=== PATIENT | male | born 1990 | race Caucasian/White ===

== ENCOUNTER → 2017-09-14 12:46 | Outpatient (CLI) | payer OTHER, MEDICAID, SELFPAY ==
[2017-09-14 13:31] LABS: Appearance Urine UA CLEAR; Bilirubin Urine UA NEGATIVE (NEGATIVE); Color Urine UA YELLOW; Glucose Urine UA NEGATIVE (Normal); Ketones Urine UA NEGATIVE (NEGATIVE); Leukocyte Esterase Urine UA NEGATIVE (NEGATIVE); Nitrite Urine UA NEGATIVE (NEGATIVE); Occult Blood Urine UA NEGATIVE (Negative); Protein Urine UA NEGATIVE (Negative); Specific Gravity Urine UA 1.025 (1.000-1.035); Urobilinogen Urine UA 0.2 E.U./dL (0.2)
[2017-09-14 13:35] LABS: Add Manual Diff / Slide Review NO; Basophils Percent Auto 0.4 % (0-2); Hemoglobin 16.3 g/dL (13.5-17.5); Lymphocytes Percent Auto 26.6 % (25-40); Mean Corpuscular HGB Conc 34.6 % (30-36); Mean Corpuscular Hemoglobin 30.8 PG (26-34); Mean Corpuscular Volume 88.9 fL (80-100); Monocytes Percent Auto 5.3 % (3-14); Neutrophils Absolute Auto 5500 /uL (3000-5900); Neutrophils Percent Auto 62.7 % (50-75); Platelet Count 245 X10^3/uL (150-400); Red Blood Cell Count 5.29 X10^6/uL (4.5-5.9); Red Cell Distribution Width 12.7 % (11.6-14.8); White Blood Cell Count 8.8 X10^3/uL (4.5-11.0)
[2017-09-14 13:37] LABS: Hemoglobin A1C% w Est Avg Glu 5.2 % (4.0-6.0)
[2017-09-14 13:43] LABS: Culture Indicated Urine Cult Not Indicated; Urine Comments Microscopic Normal
[2017-09-14 13:47] LABS: Alanine Aminotransferase 86 IU/L (21-72); Albumin 4.5 g/dL (3.5-5.0); Albumin Globulin Ratio 1.3 (1.0-2.8); Alkaline Phosphatase 59 U/L (38-126); Aspartate Aminotransferase 50 IU/L (17-59); BUN Creatinine Ratio 14.3 (6-22); Bilirubin Total 0.9 mg/dL (0.2-1.3); Calcium 9.4 mg/dL (8.4-10.2); Cholesterol 221 mg/dL (140-199); Estimated Glomerular Filt Rate > 60.0 mL/min (>60); Globulin 3.4 g/dL (1.7-4.1); Glucose 86 mg/dL (70-100); HDL Cholesterol 47 mg/dL (40-60); LDL Cholesterol Calculated 117 mg/dL (<100); Potassium 4.6 mmol/L (3.4-5.1); Sodium 140 mmol/L (137-145); Total Protein 7.9 g/dL (6.3-8.2); Triglycerides 285 mg/dL (35-150)
[2017-09-14 13:48] LABS: HEMOLYSIS 60 (0-50)
== END ==
PROVIDERS: PCP Family Medicine; Visit Provider Nurse Practitioner Family
DX: R03.0 Elevated blood-pressure reading, without diagnosis of hypertension (principal); E66.01 Morbid (severe) obesity due to excess calories
CPT/HCPCS: 36415; 80053; 80061; 81001; 83036; 85025

== ENCOUNTER → 2017-09-18 16:12 | Outpatient (CLI) | payer OTHER, MEDICAID, SELFPAY ==
[2017-09-18 18:04] LABS: Appearance Urine UA CLEAR; Bilirubin Urine UA NEGATIVE (NEGATIVE); Color Urine UA YELLOW; Glucose Urine UA NEGATIVE (Negative); Ketones Urine UA NEGATIVE (NEGATIVE); Leukocyte Esterase Urine UA NEGATIVE (NEGATIVE); Nitrite Urine UA NEGATIVE (NEGATIVE); Occult Blood Urine UA NEGATIVE (Negative); Protein Urine UA NEGATIVE (Negative); Urobilinogen Urine UA 0.2 E.U./dL (0.2)
[2017-09-18 18:08] LABS: RBC Urine 0-1/HPF (0-5/HPF); WBC Urine 0-1/HPF (0-5/HPF)
[2017-09-18 18:09] LABS: Culture Indicated Urine Cult Not Indicated; Urine Comments Microscopic Normal
[2017-09-18 19:11] LABS: Creatinine Urine Random 135.7 mg/dL
[2017-09-18 19:19] LABS: Microalbumi Creatinin Ratio Ur 4.4 ug/mg CR (<30); Microalbumin Urine Random < 0.6 mg/dL (0-1.6)
== END ==
PROVIDERS: PCP Registered Nurse; Visit Provider Registered Nurse
DX: R03.0 Elevated blood-pressure reading, without diagnosis of hypertension (principal)
CPT/HCPCS: 81001; 82043; 82570

== ENCOUNTER → 2017-09-20 13:57 | Outpatient (CLI) | payer OTHER, MEDICAID, SELFPAY ==
--- NOTE | 2017-09-21 16:32 | PM.PFT.1 ---
Pulmonary Function Test Referral & Results Date Patient Seen: 09/20/17 Requesting provider: Margi Peacock Results: The spirometry demonstrates an FVC of 4.83 L which is 84% of predicted. The FEV1 was measured at 3.08 L which is 65% of predicted. The FEV1/FVC ratio was 60 for which is 76% of predicted. Following the administration of bronchodilator there was 10% improvement in FEV1 and a 64% improvement in FEF 25-75%. Lung volumes show an SVC of 4.85 L which is 88% of predicted. The diffusing capacity was measured at 49.01 which is 145% of predicted. The maximum voluntary ventilation was normal. Interpretation: This study demonstrates mild obstructive lung disease with some limited evidence of benefit following bronchodilator administration, particularly in small airway flows based on improvement in FEF 25-75%.
== END ==
PROVIDERS: PCP Registered Nurse; Visit Provider Registered Nurse
DX: J45.909 Unspecified asthma, uncomplicated (principal)
CPT/HCPCS: 94010; 94060; 94726; 94729

== ENCOUNTER 2017-11-04 19:50 | Emergency (ER) | payer OTHER, MEDICAID, SELFPAY ==
[2017-11-04 20:00] VITALS: BP 156/107; PULSE 98; RESP 16; TEMP 37; O2SAT 96; BMI 38.0
--- NOTE | 2017-11-04 20:15 | DI.RAD.S_ITS ---
PROCEDURE: XR ACUTE ABDOMEN SERIES INDICATIONS: Abdominal pain, cramping TECHNIQUE: One view chest and two views of the abdomen were acquired. COMPARISON: [facility], , CHEST 1 VIEW, 06/12/2017, 11:48. FINDINGS: Surgical changes and devices: None. Chest: Lungs are clear. Heart size is normal. No pleural effusions. No pneumoperitoneum. Abdomen: Bowel gas pattern demonstrates scattered air-fluid levels within the small and large bowel. There is a paucity of bowel gas. No suspicious calcifications. Bones: No suspicious bony lesions. IMPRESSION: 1. Nonspecific bowel gas pattern with scattered air-fluid levels. The findings may reflect an ileus, gastroenteritis, or obstruction. Dictated by: Daquan Handley M.D. on 11/04/2017 at 20:58 Approved by: Daquan Handley M.D. on 11/04/2017 at 20:59
--- NOTE | 2017-11-04 20:17 | ED.ABDPAIN ---
HPI - Abdominal Pain General Chief Complaint: Abdominal Pain Stated Complaint: STOMACH PAIN NAUSEA Time Seen by Provider: 11/04/17 20:07 Source: patient Mode of arrival: ambulatory Limitations: no limitations History of Present Illness HPI narrative: 27-year-old male obviously uncomfortable, clutching his abdomen complaining of episodic, crampy abdominal pain after taking Mag citrate for constipation. He did pass a small amount of stool since. He denies provocation, palliation or radiation of his pain. He is not currently having pain. MD complaint: abdominal pain Onset (ago): hour(s) Pain Consistency: intermittent and now resolved Location: diffuse Severity: moderate Quality: cramping Radiation: none Migration to: no migration Relieving factors: nothing Exacerbating factors: nothing Related Data Previous Rx's Medication Instructions Recorded pantoprazole 20 mg PO BIDAC #30 tab 06/12/17 amoxicillin-pot clavulanate 875 mg PO BID #20 tab 08/08/17 [Augmentin] meclizine 12.5 mg PO Q4HP PRN #30 tab 08/14/17 Review of Systems Review of Systems All systems reviewed & are unremarkable except as noted in HPI and below Constitutional Denies chills, Denies fever(s), Denies lethargy and Denies weakness Eyes Denies change in vision, Denies eye discharge, Denies irritation and Denies loss of vision ENT Ears, Nose, Mouth, and Throat: Denies change in voice, Denies neck pain and Denies sore throat Cardiovascular Denies chest pain, Denies irregular heart rhythm, Denies lightheadedness, Denies palpitations, Denies dyspnea, Denies dyspnea on exertion and Denies orthopnea Respiratory Denies cough, Denies dyspnea, Denies dyspnea on exertion and Denies wheezing Gastrointestinal Gastrointestinal: Reports abdominal pain, Reports change in bowel habits, Denies diarrhea, Denies nausea and Denies vomiting Genitourinary Denies hematuria, Denies flank pain, Denies urinary incontinence and Denies urinary urgency Musculoskeletal Denies neck pain Integumentary/Breasts Denies pruritus, Denies erythema, Denies rash and Denies wounds Neurologic Denies confusion, Denies loss of vision and Denies weakness Psychiatric Denies anxiety, Denies confusion, Denies depression, Denies homicidal ideation and Denies suicidal ideation Endocrine Denies palpitations Hematologic/Lymphatic Denies easy bruising Allergic/Immunologic Denies wheezing Exam Narrative Exam Narrative: Pleasant 27-year-old male, clutching his abdomen Initial Vital Signs Initial Vital Signs: Vital Signs Temperature 98.6 F 11/04/17 20:00 Pulse Rate 98 H 11/04/17 20:00 Respiratory Rate 16 11/04/17 20:00 Blood Pressure 156/107 H 11/04/17 20:00 Pulse Oximetry 96 11/04/17 20:00 Const General: cooperative, well developed and in distress Nutritional Appearance: well nourished Orientation: alert, awake, oriented x3 and not confused Resp Effort & Inspection: normal respiratory effort, able to speak in complete sentences, no respiratory distress and no use of accessory muscles Auscultation: clear to auscultation bilaterally, no rales, no rhonchi and no wheezes Cardio Rate: regular rate Rhythm: regular rhythm Heart Sounds: no click, no gallops, no murmurs and no rubs Pulses: normal peripheral pulses GI Inspection: normal to inspection Palpation: soft, No guarding, No tender and No ascites Percussion: normal to percussion Skin General: no rashes or lesions noted, No jaundice and No petechiae Extrem General: full ROM, no clubbing, cyanosis or edema, no pedal edema and no calf tenderness Psych Appearance: well kempt Mental Status: mental status grossly normal Attitude: cooperative Thought Content: normal and suicidality Judgment: judgment good Course Orders Ordered: ED Orders 11/04/17 20:15 XR acute abdomen series Stat Vital Signs - 8 hr 11/04/17 20:00 11/04/17 21:37 11/04/17 21:48 Temperature 98.6 F Pulse Rate 98 H 59 L 81 Respiratory Rate 16 18 16 Blood Pressure 156/107 H 154/94 H Blood Pressure [Left Arm] 113/70 Pulse Oximetry 96 96 100 MDM - Abdominal Pain Imaging Data Abdominal x-ray: Attestation: I personally reviewed and interpreted this imaging study as follows: My impression: non specific bowel gas pattern Radiologist's impression: PROCEDURE: XR ACUTE ABDOMEN SERIES INDICATIONS: Abdominal pain, cramping TECHNIQUE: One view chest and two views of the abdomen were acquired. COMPARISON: [facility], , CHEST 1 VIEW, 06/12/2017, 11:48. FINDINGS: Surgical changes and devices: None. Chest: Lungs are clear. Heart size is normal. No pleural effusions. No pneumoperitoneum. Abdomen: Bowel gas pattern demonstrates scattered air-fluid levels within the small and large bowel. There is a paucity of bowel gas. No suspicious calcifications. Bones: No suspicious bony lesions. IMPRESSION: 1. Nonspecific bowel gas pattern with scattered air-fluid levels. The findings may reflect an ileus, gastroenteritis, or obstruction. Dictated by: Daquan Handley M.D. on 11/04/2017 at 20:58 Approved by: Daquan Handley M.D. on 11/04/2017 at 20:59 Discharge Plan Departure Patient Disposition: Home, Self-Care Clinical Impression: Abdominal pain Discharge Date/Time: 11/04/17 21:49 Interventions: ED Discharge Assessment Last Done: 11/04/17 21:48 Instructions: DI for Abdominal Pain-Adult Activity Restrictions/Additional Instructions: 1. Stay active 2. Return to your normal diet as much as possible 3. Stay well hydrated 4. A combination of over the counter laxitives including Dulcolax (stimulant laxative) Colace (stool softener) *Follow up with your primary care provider in 2-3 days *Return to ER if you should have any new, worsening or concerning symptoms such as worsening pain, vomiting, fever greater than 101 F or other Prescriptions: No Action pantoprazole 20 MG tablet,delayed release (DR/EC) 20 mg PO BIDAC Qty: 30 RF: 0 amoxicillin-pot clavulanate [Augmentin] 875 MG/125 MG tablet 875 mg PO BID Qty: 20 RF: 0 meclizine 12.5 MG tablet 12.5 mg PO Q4HP PRNQty: 30 RF: 0
[2017-11-04 21:37] VITALS: BP 113/70; PULSE 59; RESP 18; O2SAT 96
[2017-11-04 21:48] VITALS: BP 154/94; PULSE 81; RESP 16; O2SAT 100
== END 2017-11-04 21:49 | disposition home or self-care (01) ==
PROVIDERS: Emergency Provider Emergency Medicine; PCP Registered Nurse
DX: R10.9 Unspecified abdominal pain (principal)
CPT/HCPCS: 74022; 99282; 99283

== ENCOUNTER 2018-01-02 11:01 | Emergency (ER) | payer OTHER, MEDICAID, SELFPAY ==
[2018-01-02 11:03] VITALS: BP 179/111; PULSE 74; RESP 17; TEMP 36.1; O2SAT 99
--- NOTE | 2018-01-02 11:18 | DI.RAD.S_ITS ---
PROCEDURE: XR CHEST 1V INDICATIONS: chest pain TECHNIQUE: One view of the chest was acquired. COMPARISON: [facility], , CHEST 1 VIEW, 06/12/2017, 11:48. FINDINGS: Surgical changes and devices: None. Lungs and pleura: No pleural effusions or pneumothorax. Lungs are clear. Mediastinum: Mediastinal contours appear normal. Heart size is normal. Bones and chest wall: No suspicious bony lesions. Overlying soft tissues appear unremarkable. IMPRESSION: No acute cardiopulmonary disease. Dictated by: Noni Ba M.D. on 01/02/2018 at 11:49 Approved by: Noni Ba M.D. on 01/02/2018 at 11:49
[2018-01-02 11:27] LABS: INR 0.9 (0.9-1.3); Prothrombin Time 10.2 SECONDS (10.1-12.7)
[2018-01-02 11:30] LABS: Add Manual Diff / Slide Review NO; Basophils Percent Auto 0.5 % (0-2); Eosinophils Percent Auto 1.7 % (2-4); Hematocrit 46.3 % (41-53); Hemoglobin 16.1 g/dL (13.5-17.5); Lymphocytes Percent Auto 16.5 % (25-40); Mean Corpuscular HGB Conc 34.7 % (30-36); Mean Corpuscular Hemoglobin 31.6 PG (26-34); Mean Corpuscular Volume 91.1 fL (80-100); Monocytes Percent Auto 4.8 % (3-14); Neutrophils Absolute Auto 7200 /uL (3000-5900); Neutrophils Percent Auto 76.5 % (50-75); PTT Partial Thromboplastin Tim 33 SECONDS (26.4-36.2); Platelet Count 285 X10^3/uL (150-400); Red Blood Cell Count 5.09 X10^6/uL (4.5-5.9); Red Cell Distribution Width 12.9 % (11.6-14.8); White Blood Cell Count 9.4 X10^3/uL (4.5-11.0)
[2018-01-02 11:32] LABS: Alanine Aminotransferase 62 IU/L (21-72); Albumin 4.8 g/dL (3.5-5.0); Albumin Globulin Ratio 1.4 (1.0-2.8); Alkaline Phosphatase 65 U/L (38-126); Aspartate Aminotransferase 32 IU/L (17-59); BUN Creatinine Ratio 17.5 (6-22); Bilirubin Total 0.5 mg/dL (0.2-1.3); Blood Urea Nitrogen 14 mg/dL (9-20); Carbon Dioxide 28 mmol/L (22-32); Chloride 104 mmol/L (98-107); Creatine Kinase 100 U/L (55-170); Estimated Glomerular Filt Rate > 60.0 mL/min (>60); Globulin 3.5 g/dL (1.7-4.1); Glucose 117 mg/dL (70-100); HEMOLYSIS < 15 (0-50); Lipase 68 U/L (23-300); Potassium 4.4 mmol/L (3.4-5.1); Sodium 145 mmol/L (137-145); Total Protein 8.3 g/dL (6.3-8.2)
[2018-01-02 11:48] LABS: Troponin I < 0.012 ng/mL (0.01-0.034)
[2018-01-02 12:06] VITALS: BP 169/121; PULSE 79; O2SAT 100
--- NOTE | 2018-01-02 12:24 | ED.ABDPAIN ---
HPI - Abdominal Pain <STACY Fajardo-BC - Last Filed: 01/02/18 21:38> General Stated Complaint: CHEST PAINS Time Seen by Provider: 01/02/18 11:19 Source: patient Mode of arrival: ambulatory Limitations: no limitations History of Present Illness HPI narrative: Patient presents with chief complaint of epigastric pain. It is lasted today. He had does have a history of GERD and states this feels like that. He does complain of some nausea. He denies substernal chest pain, no vomiting, diarrhea, shortness of breath. He states that his epigastric area hurts when he takes a deep breath. He has not taken anything at home to feel better. He denies fevers he denies urinary issues. He denies palpitations, denies swelling of the extremities. He is concerned about his lungs as he is a smoker. He denies palpitations, leg swelling, other concerns. He states this feels like his previous episodes of GERD. Related Data Home Medications Medication Instructions Recorded Confirmed albuterol sulfate [ProAir HFA] 1 puff INHALATION PRN PRN 01/02/18 01/02/18 montelukast 1 tab PO DAILY 01/02/18 01/02/18 Previous Rx's Medication Instructions Recorded pantoprazole 40 mg PO DAILY #30 tab 01/02/18 sucralfate [Carafate] 10 ml PO QID #420 ml 01/02/18 Allergies Allergy/AdvReac Type Severity Reaction Status Date / Time No Known Drug Allergies Allergy Verified 01/02/18 12:12 Review of Systems <MARCELO Fajardo - Last Filed: 01/02/18 21:38> Review of Systems GENERAL: Denies chills, fatigue, malaise, fever, sweats. HEENT: Denies sinus pain, ear pain, sore throat, difficulty swallowing, dizziness. RESPIRATORY: Denies dyspnea, cough, wheezing, hemoptysis, sputum. CARDIOVASCULAR: See HPI GASTROINTESTINAL: See HPI : Denies dysuria, frequency, incontinence, hematuria, urinary retention. MUSCULOSKELETAL: See HPI SKIN: Denies rash, skin lesions, or other NEUROLOGIC: Denies weakness, headache, numbness, change in speech, confusion, seizures, incoordination. PSYCHIATRIC: No concerning psychosocial issues. 12 point review of systems is negative except for those stated above Exam <STACY Fajardo-BC - Last Filed: 01/02/18 21:38> Narrative Exam Narrative: GENERAL: Obese patient in slight distress HEAD: Atraumatic. Normocephalic. No temporal or scalp tenderness. EYES: Pupils equal round and reactive. Extraocular motions intact. No scleral icterus. No injection or drainage. ENT: Nose without bleeding, purulent drainage or septal hematoma. Throat without erythema, tonsillar hypertrophy or exudate. Uvula midline. Airway patent. NECK: Trachea midline. No JVD or lymphadenopathy. Supple, nontender, no meningeal signs. CARDIOVASCULAR: Regular rate and rhythm without murmurs, gallops, or rubs. RESPIRATORY: Clear to auscultation. Breath sounds equal bilaterally. No wheezes, rales, or rhonchi. GASTROINTESTINAL: Obese abdomen. Bowel sounds all 4 quadrants. No palpable hepatosplenomegaly. Pain to palpation epigastric area. No pain to palpation lower right quadrant or lower left quadrant. No pain at McBurney's point. Negative Armas sign. No rigidity, no guarding. EXTREMITIES: No clubbing, cyanosis, or edema. No joint tenderness, effusion, or edema noted. BACK: Nontender without deformity or crepitance. No flank tenderness. NEURO: AOx3. SKIN: No rash or erythema. Initial Vital Signs Initial Vital Signs: Vital Signs Temperature 96.9 F L 01/02/18 11:03 Pulse Rate 74 01/02/18 11:03 Respiratory Rate 17 01/02/18 11:03 Blood Pressure 179/111 H 01/02/18 11:03 Pulse Oximetry 99 01/02/18 11:03 <Olga Mcdaniel DO - Last Filed: 01/03/18 09:54> Initial Vital Signs Initial Vital Signs: Vital Signs Temperature 96.9 F L 01/02/18 11:03 Pulse Rate 74 01/02/18 11:03 Respiratory Rate 17 01/02/18 11:03 Blood Pressure 179/111 H 01/02/18 11:03 Pulse Oximetry 99 01/02/18 11:03 Course <STACY Fajardo-BC - Last Filed: 01/02/18 21:38> Orders Ordered: Discontinued Medications Al Hydrox/Mg Hydrox/Simethicone 20 ml/ Lidocaine HCl 15 ml 0 ml PO NOW ONE Stop: 01/02/18 12:24 Last Admin: 01/02/18 12:59 Dose: 45 ml Ondansetron HCl (Zofran) 4 mg IV NOW ONE Stop: 01/02/18 12:15 Last Admin: 01/02/18 12:59 Dose: 4 mg Pantoprazole Sodium (Protonix) 40 mg IV NOW ONE Stop: 01/02/18 12:24 Last Admin: 01/02/18 12:59 Dose: 40 mg Sucralfate (Carafate) 1 gm PO NOW ONE Stop: 01/02/18 13:45 Last Admin: 01/02/18 14:42 Dose: 1 gm Vital Signs - 8 hr 01/02/18 14:06 01/02/18 14:49 01/02/18 15:09 Pulse Rate 66 89 85 Respiratory Rate 20 15 Blood Pressure 145/99 H Blood Pressure [Left Arm] 152/103 H Pulse Oximetry 98 98 97 <Olga Mcdaniel DO - Last Filed: 01/03/18 09:54> Orders Ordered: Discontinued Medications Al Hydrox/Mg Hydrox/Simethicone 20 ml/ Lidocaine HCl 15 ml 0 ml PO NOW ONE Stop: 01/02/18 12:24 Last Admin: 01/02/18 12:59 Dose: 45 ml Ondansetron HCl (Zofran) 4 mg IV NOW ONE Stop: 01/02/18 12:15 Last Admin: 01/02/18 12:59 Dose: 4 mg Pantoprazole Sodium (Protonix) 40 mg IV NOW ONE Stop: 01/02/18 12:24 Last Admin: 01/02/18 12:59 Dose: 40 mg Sucralfate (Carafate) 1 gm PO NOW ONE Stop: 01/02/18 13:45 Last Admin: 01/02/18 14:42 Dose: 1 gm Vital Signs - 8 hr 01/02/18 14:06 01/02/18 14:49 01/02/18 15:09 Pulse Rate 66 89 85 Respiratory Rate 20 15 Blood Pressure 145/99 H Blood Pressure [Left Arm] 152/103 H Pulse Oximetry 98 98 97 MDM - Abdominal Pain <ROSE MARY Fajardo - Last Filed: 01/02/18 21:38> Differential Diagnosis Differential diagnosis: Likely abdominal pain and gastroenteritis Lab Data Result diagrams: 01/02/18 11:05 01/02/18 11:05 Lab Results 01/02/18 01/02/18 01/02/18 Range/Units 11:05 11:05 11:05 WBC 9.4 (4.5-11.0) X10^3/uL RBC 5.09 (4.5-5.9) X10^6/uL Hgb 16.1 (13.5-17.5) g/dL Hct 46.3 (41-53) % MCV 91.1 (80-100) fL MCH 31.6 (26-34) PG MCHC 34.7 (30-36) % RDW 12.9 (11.6-14.8) % Plt Count 285 (150-400) X10^3/uL Neut % (Auto) 76.5 H (50-75) % Lymph % (Auto) 16.5 L (25-40) % [place] % (Auto) 4.8 (3-14) % Eos % (Auto) 1.7 L (2-4) % Baso % (Auto) 0.5 (0-2) % Neut # (Auto) 7200 H (9146-0370) /uL PT 10.2 (10.1-12.7) SECONDS INR 0.9 (0.9-1.3) APTT 33 (26.4-36.2) SECONDS Sodium 145 (137-145) mmol/L Potassium 4.4 (3.4-5.1) mmol/L Chloride 104 (98-107) mmol/L Carbon Dioxide 28 (22-32) mmol/L BUN 14 (9-20) mg/dL Creatinine 0.80 (0.66-1.25) mg/dL Estimated GFR > 60.0 (>60) mL/min BUN/Creatinine Ratio 17.5 (6-22) Glucose 117 H (70-100) mg/dL Calcium 10.0 (8.4-10.2) mg/dL Total Bilirubin 0.5 (0.2-1.3) mg/dL AST 32 (17-59) IU/L ALT 62 (21-72) IU/L Alkaline Phosphatase 65 (38-126) U/L Total Creatine Kinase 100 (55-170) U/L Troponin I < 0.012 (0.01-0.034) ng/mL Total Protein 8.3 H (6.3-8.2) g/dL Albumin 4.8 (3.5-5.0) g/dL Globulin 3.5 (1.7-4.1) g/dL Albumin/Globulin Ratio 1.4 (1.0-2.8) Amylase (30-110) U/L Lipase 68 (23-300) U/L 01/02/18 Range/Units 11:22 WBC (4.5-11.0) X10^3/uL RBC (4.5-5.9) X10^6/uL Hgb (13.5-17.5) g/dL Hct (41-53) % MCV (80-100) fL MCH (26-34) PG MCHC (30-36) % RDW (11.6-14.8) % Plt Count (150-400) X10^3/uL Neut % (Auto) (50-75) % Lymph % (Auto) (25-40) % [place] % (Auto) (3-14) % Eos % (Auto) (2-4) % Baso % (Auto) (0-2) % Neut # (Auto) (7626-9991) /uL PT (10.1-12.7) SECONDS INR (0.9-1.3) APTT (26.4-36.2) SECONDS Sodium (137-145) mmol/L Potassium (3.4-5.1) mmol/L Chloride (98-107) mmol/L Carbon Dioxide (22-32) mmol/L BUN (9-20) mg/dL Creatinine (0.66-1.25) mg/dL Estimated GFR (>60) mL/min BUN/Creatinine Ratio (6-22) Glucose (70-100) mg/dL Calcium (8.4-10.2) mg/dL Total Bilirubin (0.2-1.3) mg/dL AST (17-59) IU/L ALT (21-72) IU/L Alkaline Phosphatase (38-126) U/L Total Creatine Kinase (55-170) U/L Troponin I (0.01-0.034) ng/mL Total Protein (6.3-8.2) g/dL Albumin (3.5-5.0) g/dL Globulin (1.7-4.1) g/dL Albumin/Globulin Ratio (1.0-2.8) Amylase 72 (30-110) U/L Lipase (23-300) U/L Imaging Data Chest x-ray: Radiologist's impression: MDM Narrative Medical decision making narrative: Patient presents with epigastric pain. He received a full workup including chest x-ray, and cardiac rule out. His vital signs were stable throughout his stay. His lab work including CBC, CMP, troponin, lipase, amylase came back within normal limits. He did receive a GI cocktail, which she states helped greatly with this pain. He was comfortable to leave and was asking to leave. Thus I spoke with him about follow up with his primary care physician. I spoke with him about coming back to the emergency department for any acute concerns. I spoke with him about dietary changes, decreasing acid and decreasing spicy foods. Patient stated understanding and all questions or concerns upon discharge. <Olga Mcdaniel, DO - Last Filed: 01/03/18 09:54> Lab Data Lab Results 01/02/18 01/02/18 01/02/18 Range/Units 11:05 11:05 11:05 WBC 9.4 (4.5-11.0) X10^3/uL RBC 5.09 (4.5-5.9) X10^6/uL Hgb 16.1 (13.5-17.5) g/dL Hct 46.3 (41-53) % MCV 91.1 (80-100) fL MCH 31.6 (26-34) PG MCHC 34.7 (30-36) % RDW 12.9 (11.6-14.8) % Plt Count 285 (150-400) X10^3/uL Neut % (Auto) 76.5 H (50-75) % Lymph % (Auto) 16.5 L (25-40) % [place] % (Auto) 4.8 (3-14) % Eos % (Auto) 1.7 L (2-4) % Baso % (Auto) 0.5 (0-2) % Neut # (Auto) 7200 H (8274-2843) /uL PT 10.2 (10.1-12.7) SECONDS INR 0.9 (0.9-1.3) APTT 33 (26.4-36.2) SECONDS Sodium 145 (137-145) mmol/L Potassium 4.4 (3.4-5.1) mmol/L Chloride 104 (98-107) mmol/L Carbon Dioxide 28 (22-32) mmol/L BUN 14 (9-20) mg/dL Creatinine 0.80 (0.66-1.25) mg/dL Estimated GFR > 60.0 (>60) mL/min BUN/Creatinine Ratio 17.5 (6-22) Glucose 117 H (70-100) mg/dL Calcium 10.0 (8.4-10.2) mg/dL Total Bilirubin 0.5 (0.2-1.3) mg/dL AST 32 (17-59) IU/L ALT 62 (21-72) IU/L Alkaline Phosphatase 65 (38-126) U/L Total Creatine Kinase 100 (55-170) U/L Troponin I < 0.012 (0.01-0.034) ng/mL Total Protein 8.3 H (6.3-8.2) g/dL Albumin 4.8 (3.5-5.0) g/dL Globulin 3.5 (1.7-4.1) g/dL Albumin/Globulin Ratio 1.4 (1.0-2.8) Amylase (30-110) U/L Lipase 68 (23-300) U/L 01/02/18 Range/Units 11:22 WBC (4.5-11.0) X10^3/uL RBC (4.5-5.9) X10^6/uL Hgb (13.5-17.5) g/dL Hct (41-53) % MCV (80-100) fL MCH (26-34) PG MCHC (30-36) % RDW (11.6-14.8) % Plt Count (150-400) X10^3/uL Neut % (Auto) (50-75) % Lymph % (Auto) (25-40) % [place] % (Auto) (3-14) % Eos % (Auto) (2-4) % Baso % (Auto) (0-2) % Neut # (Auto) (9699-1627) /uL PT (10.1-12.7) SECONDS INR (0.9-1.3) APTT (26.4-36.2) SECONDS Sodium (137-145) mmol/L Potassium (3.4-5.1) mmol/L Chloride (98-107) mmol/L Carbon Dioxide (22-32) mmol/L BUN (9-20) mg/dL Creatinine (0.66-1.25) mg/dL Estimated GFR (>60) mL/min BUN/Creatinine Ratio (6-22) Glucose (70-100) mg/dL Calcium (8.4-10.2) mg/dL Total Bilirubin (0.2-1.3) mg/dL AST (17-59) IU/L ALT (21-72) IU/L Alkaline Phosphatase (38-126) U/L Total Creatine Kinase (55-170) U/L Troponin I (0.01-0.034) ng/mL Total Protein (6.3-8.2) g/dL Albumin (3.5-5.0) g/dL Globulin (1.7-4.1) g/dL Albumin/Globulin Ratio (1.0-2.8) Amylase 72 (30-110) U/L Lipase (23-300) U/L Discharge Plan Departure Patient Disposition: Home Clinical Impression: Gastroesophageal reflux disease Discharge Date/Time: 01/02/18 15:10 Interventions: ED Discharge Assessment Last Done: 01/02/18 15:09 Instructions: Gastroesophageal Reflux Disease (Alternative Therapy), Heartburn -- Overview, DI for Gastroesophageal Reflux Disease (GERD), GERD Diet Activity Restrictions/Additional Instructions: I am giving you two prescriptions to help with your reflux. Please follow-up with your primary care provider in a few days. I have given you information on diet changes. Please come back to the emergency department if you have any acute concerns. Prescriptions: New sucralfate [Carafate] 100 mg/mL suspension 10 ml PO QID Qty: 420 RF: 0 pantoprazole 40 mg tablet,delayed release (DR/EC) 40 mg PO DAILY Qty: 30 RF: 0 No Action montelukast 10 mg tablet 1 tab PO DAILY RF: 0 albuterol sulfate [ProAir HFA] 90 mcg/actuation HFA aerosol inhaler 1 puff Inhalation PRN PRN (Reason: Shortness Of Breath) RF: 0 <Olga Mcdaniel DO - Last Filed: 01/03/18 09:54> Cosign ED Attending Cosignature Attestation: I was immediately available in the department for consultation. Documentation has been reviewed. I agree with assessment and plan.
[2018-01-02 12:52] LABS: Amylase 72 U/L (30-110)
[2018-01-02] MEDS: ONDANSETRON 4 MG/2 ML INJ IV (12:59)
[2018-01-02] MEDS: PANTOPRAZOLE 40 MG VIAL IV (12:59)
[2018-01-02] MEDS: MAG HYDROX/ALUMINUM/SIMETH SUS 20 ML, LIDOCAINE VISCOUS 2% 15 ML PO (12:59)
[2018-01-02 13:00] VITALS: BP 148/94; PULSE 78; RESP 16; O2SAT 99
[2018-01-02 14:06] VITALS: BP 152/103; PULSE 66; RESP 20; O2SAT 98
[2018-01-02] MEDS: SUCRALFATE 1 GM TABLET PO (14:42)
[2018-01-02 14:49] VITALS: PULSE 89; O2SAT 98
[2018-01-02 15:09] VITALS: BP 145/99; PULSE 85; RESP 15; O2SAT 97
== END 2018-01-02 15:10 | disposition home or self-care (01) ==
PROVIDERS: Emergency Medicine; Emergency Provider Nurse Practitioner Family
DX: K21.9 Gastro-esophageal reflux disease without esophagitis (principal)
CPT/HCPCS: 36591; 71045; 80053; 82150; 82550; 82553; 83690; 84484; 85025; 85610; 85730; 93005; 93010; 96374; 96375; 99283; 99285; C9113; J2405

== ENCOUNTER 2018-01-04 08:20 | Emergency (ER) | payer OTHER, MEDICAID, SELFPAY ==
[2018-01-04 08:27] VITALS: BP 171/117; PULSE 79; RESP 20; TEMP 36.7; O2SAT 97; BMI 36.6
--- NOTE | 2018-01-04 08:43 | DI.US.S_ITS ---
PROCEDURE: US ABDOMEN COMPLETE INDICATIONS: ruq pain TECHNIQUE: Real-time scanning was performed of the abdominal and retroperitoneal organs, with image documentation. COMPARISON: None. FINDINGS: Liver: Liver is normal in size and homogeneous in echotexture. Liver has a diffusely increased echotexture which typically represents fatty infiltration; however, finding is nonspecific and other etiologies including hepatic cirrhosis can have a similar appearance. Please correlate with clinical and laboratory findings. Gallbladder: The 5 mm mobile stone within the gallbladder lumen. No gallbladder wall thickening. No pericholecystic fluid. No sonographic Armas sign. Biliary ducts: Intrahepatic bile ducts are non-dilated. Extrahepatic biliary tree is not visualized into echogenic liver and cannot be evaluated. Pancreas: Obscured by bowel gas and cannot be evaluated. Spleen: Spleen is homogeneous in echotexture. Spleen is slightly enlarged measuring 15.4 cm in longitudinal axis. No focal splenic lesions identified. Kidneys: Kidneys are normal in size and echotexture. Right kidney measures 12.4 cm long; left kidney measures 13.3 cm long. No hydronephrosis or nephrolithiasis. No solid masses. Aorta: Not visualized due to bowel gas and cannot be evaluated. Iliacs: Not visualized due to bowel gas and cannot be evaluated. IVC: The visualized bowel gas and cannot be evaluated. Miscellaneous: No free abdominal fluid. IMPRESSION: 1. Echogenic liver. Finding typically represents fatty infiltration; however, finding is nonspecific and correlation with clinical and laboratory findings is recommended to exclude other etiologies including hepatic cirrhosis. 2. Cholelithiasis without sonographic evidence of cholecystitis. 3. Mild splenomegaly. Dictated by: Lesley Rivera MD, PhD on 01/04/2018 at 9:34 Approved by: Lesley Rivera MD, PhD on 01/04/2018 at 9:38
--- NOTE | 2018-01-04 08:57 | PC.NURSE ---
Pt moans and reacts to whenever or where ever he is touched as very painful
[2018-01-04] MEDS: PANTOPRAZOLE 40 MG VIAL IV (09:03)
[2018-01-04 09:08] LABS: Add Manual Diff / Slide Review NO; Basophils Percent Auto 0.4 % (0-2); Eosinophils Percent Auto 2.6 % (2-4); Hematocrit 43.5 % (41-53); Hemoglobin 15.1 g/dL (13.5-17.5); Lymphocytes Percent Auto 22.6 % (25-40); Mean Corpuscular HGB Conc 34.8 % (30-36); Mean Corpuscular Hemoglobin 31.6 PG (26-34); Monocytes Percent Auto 5.4 % (3-14); Neutrophils Absolute Auto 6300 /uL (3000-5900); Platelet Count 242 X10^3/uL (150-400); Red Blood Cell Count 4.79 X10^6/uL (4.5-5.9); Red Cell Distribution Width 12.7 % (11.6-14.8); White Blood Cell Count 9.1 X10^3/uL (4.5-11.0)
[2018-01-04 09:10] VITALS: BP 160/102; PULSE 77; RESP 12; O2SAT 98
[2018-01-04 09:21] LABS: Alanine Aminotransferase 74 IU/L (21-72); Albumin 4.3 g/dL (3.5-5.0); Albumin Globulin Ratio 1.3 (1.0-2.8); Alkaline Phosphatase 51 U/L (38-126); Aspartate Aminotransferase 35 IU/L (17-59); BUN Creatinine Ratio 18.8 (6-22); Bilirubin Total 0.4 mg/dL (0.2-1.3); Blood Urea Nitrogen 15 mg/dL (9-20); Calcium 9.3 mg/dL (8.4-10.2); Carbon Dioxide 31 mmol/L (22-32); Chloride 105 mmol/L (98-107); Estimated Glomerular Filt Rate > 60.0 mL/min (>60); Globulin 3.2 g/dL (1.7-4.1); Glucose 104 mg/dL (70-100); HEMOLYSIS < 15 (0-50); Lipase 63 U/L (23-300); Potassium 4.5 mmol/L (3.4-5.1); Sodium 145 mmol/L (137-145); Total Protein 7.5 g/dL (6.3-8.2)
--- NOTE | 2018-01-04 09:28 | ED.CHESTPAIN ---
HPI - Chest Pain General Chief Complaint: Chest Pain Stated Complaint: CHEST PAINS Time Seen by Provider: 01/04/18 08:38 Source: patient Mode of arrival: ambulatory Limitations: no limitations History of Present Illness HPI narrative: Patient is a 27-year-old male who presents with epigastric pain and discomfort. This is his 2nd visit to the ED this week for the same. He was diagnosed with 3rd back in October. He continues to have increased pain nonradiating. He denies any shortness of breath some mild nausea no vomiting no diarrhea. He denies any right upper quadrant pain points to the epigastric area only. He had EKG and blood work done 2 days ago which were normal. He denies any fever or chills Related Data Home Medications Medication Instructions Recorded Confirmed albuterol sulfate [ProAir HFA] 1 puff INHALATION PRN PRN 01/02/18 01/04/18 montelukast 1 tab PO DAILY 01/02/18 01/04/18 Previous Rx's Medication Instructions Recorded pantoprazole 40 mg PO DAILY #30 tab 01/02/18 sucralfate [Carafate] 10 ml PO QID #420 ml 01/02/18 Allergies Allergy/AdvReac Type Severity Reaction Status Date / Time No Known Drug Allergies Allergy Verified 01/04/18 08:27 Review of Systems Review of Systems GENERAL: Denies chills, fatigue, malaise, fever, sweats, travel HEENT: Denies sinus pain, ear pain, sore throat, difficulty swallowing, neck pain RESPIRATORY: Denies dyspnea, cough, wheezing, hemoptysis, sputum. CARDIOVASCULAR: Denies chest pain, palpitations, orthopnea, edema GASTROINTESTINAL: Epigastric pain : Denies dysuria, frequency, incontinence, hematuria, urinary retention, flank pain. MUSCULOSKELETAL: Denies weakness, joint pain, or bony pain SKIN: No rash, no erythema, no pruritus NEUROLOGIC: Denies weakness, dizziness, headache, numbness, change in speech, confusion PSYCHIATRIC: No concerning psychosocial issues. 12 point review of systems is negative except for those stated above and HPI PFSH Medical History GERD (gastroesophageal reflux disease) (Acute) Obesity (Acute) Social History Smoking Status: Current some day smoker Exam Initial Vital Signs Initial Vital Signs: Vital Signs Temperature 98.0 F 01/04/18 08:27 Pulse Rate 79 01/04/18 08:27 Respiratory Rate 20 01/04/18 08:27 Blood Pressure 171/117 H 01/04/18 08:27 Pulse Oximetry 97 01/04/18 08:27 GENERAL: Well-appearing, well-nourished and in no acute distress. HEENT: Head atraumatic,EOMI, pupils reactive CARDIOVASCULAR: Regular rate and rhythm without murmurs, rubs or gallops. RESPIRATORY: Breath sounds equal bilaterally, no wheezes rales or rhonchi. ABDOMEN: Soft, tender epigastric area mild right upper quadrant pain without guarding or rebound no lower abdominal pain no distension normal bowel sounds s EXTREMITIES: Normal range of motion, no clubbing or edema. Neurovascularly intact NEUROLOGICAL: Alert and oriented x4.Normal gait and speech. SKIN: Warm, dry, no laceration, no petechiae, no rashes or lesions. Course Orders Ordered: ED Orders 01/04/18 08:43 US abdomen complete Stat 01/04/18 08:50 Complete Blood Count AUTO DIFF Stat Comprehensive Metabolic Panel Stat Lipase Stat Discontinued Medications Ketorolac Tromethamine (Toradol) 30 mg IV NOW ONE Stop: 01/04/18 09:29 Last Admin: 01/04/18 10:50 Dose: 30 mg Pantoprazole Sodium (Protonix) 40 mg IV NOW ONE Stop: 01/04/18 08:44 Last Admin: 01/04/18 09:03 Dose: 40 mg Vital Signs - 8 hr 01/04/18 08:27 01/04/18 09:10 01/04/18 10:59 Temperature 98.0 F Pulse Rate 79 77 70 Respiratory Rate 20 12 15 Blood Pressure 171/117 H 155/90 H Blood Pressure [Right Arm] 160/102 H Pulse Oximetry 97 98 98 MDM - Chest Pain Lab Data Attestation: I reviewed the patient's lab results. Result diagrams: 01/04/18 08:50 01/04/18 08:50 Lab Results 01/04/18 01/04/18 Range/Units 08:50 08:50 WBC 9.1 (4.5-11.0) X10^3/uL RBC 4.79 (4.5-5.9) X10^6/uL Hgb 15.1 (13.5-17.5) g/dL Hct 43.5 (41-53) % MCV 91.0 (80-100) fL MCH 31.6 (26-34) PG MCHC 34.8 (30-36) % RDW 12.7 (11.6-14.8) % Plt Count 242 (150-400) X10^3/uL Neut % (Auto) 69.0 (50-75) % Lymph % (Auto) 22.6 L (25-40) % [place] % (Auto) 5.4 (3-14) % Eos % (Auto) 2.6 (2-4) % Baso % (Auto) 0.4 (0-2) % Neut # (Auto) 6300 H (3172-5591) /uL Sodium 145 (137-145) mmol/L Potassium 4.5 (3.4-5.1) mmol/L Chloride 105 (98-107) mmol/L Carbon Dioxide 31 (22-32) mmol/L BUN 15 (9-20) mg/dL Creatinine 0.80 (0.66-1.25) mg/dL Estimated GFR > 60.0 (>60) mL/min BUN/Creatinine Ratio 18.8 (6-22) Glucose 104 H (70-100) mg/dL Calcium 9.3 (8.4-10.2) mg/dL Total Bilirubin 0.4 (0.2-1.3) mg/dL AST 35 (17-59) IU/L ALT 74 H (21-72) IU/L Alkaline Phosphatase 51 (38-126) U/L Total Protein 7.5 (6.3-8.2) g/dL Albumin 4.3 (3.5-5.0) g/dL Globulin 3.2 (1.7-4.1) g/dL Albumin/Globulin Ratio 1.3 (1.0-2.8) Lipase 63 (23-300) U/L Imaging Data US - abdomen: Radiologist's impression: PROCEDURE: US ABDOMEN COMPLETE INDICATIONS: ruq pain TECHNIQUE: Real-time scanning was performed of the abdominal and retroperitoneal organs, with image documentation. COMPARISON: None. FINDINGS: Liver: Liver is normal in size and homogeneous in echotexture. Liver has a diffusely increased echotexture which typically represents fatty infiltration; however, finding is nonspecific and other etiologies including hepatic cirrhosis can have a similar appearance. Please correlate with clinical and laboratory findings. Gallbladder: The 5 mm mobile stone within the gallbladder lumen. No gallbladder wall thickening. No pericholecystic fluid. No sonographic Armas sign. Biliary ducts: Intrahepatic bile ducts are non-dilated. Extrahepatic biliary tree is not visualized into echogenic liver and cannot be evaluated. Pancreas: Obscured by bowel gas and cannot be evaluated. Spleen: Spleen is homogeneous in echotexture. Spleen is slightly enlarged measuring 15.4 cm in longitudinal axis. No focal splenic lesions identified. Kidneys: Kidneys are normal in size and echotexture. Right kidney measures 12.4 cm long; left kidney measures 13.3 cm long. No hydronephrosis or nephrolithiasis. No solid masses. Aorta: Not visualized due to bowel gas and cannot be evaluated. [place]: Not visualized due to bowel gas and cannot be evaluated. IVC: The visualized bowel gas and cannot be evaluated. Miscellaneous: No free abdominal fluid. IMPRESSION: 1. Echogenic liver. Finding typically represents fatty infiltration; however, finding is nonspecific and correlation with clinical and laboratory findings is recommended to exclude other etiologies including hepatic cirrhosis. 2. Cholelithiasis without sonographic evidence of cholecystitis. 3. Mild splenomegaly. Dictated by: Lesley Rivera MD, PhD on 01/04/2018 at 9:34 ECG Data Attestation: I personally reviewed and interpreted this ECG as follows: Prior ECG tracings: available for review Interpretation: Normal sinus rhythm rate [address] changes normal intervals KS interval is 150 QRS 80 a QTC 390 similar to previous EKG MDM Narrative Medical decision making narrative: Patient's ultrasound does show cholelithiasis without cholecystitis. He has no leukocytosis or elevated bilirubin. No sign of obstruction. The patient is feeling much better after Protonix. I suspect that his GERD is flaring up we discussed how he may require a cholecystectomy but not emergent at this time. All questions have been addressed. Discharge Plan Departure Patient Disposition: Home Clinical Impression: Cholelithiasis Discharge Date/Time: 01/04/18 11:04 Interventions: ED Discharge Assessment Last Done: 01/04/18 10:59 Instructions: Gallstones Activity Restrictions/Additional Instructions: *You have been diagnosed with gallstones *What to do: He may electively as needed gallbladder taken out at this time it is not emergent *Continue to take medications as directed -continue to take omeprazole as previously directed *Follow up with your primary care provider in 2-3 days, may need surgery referral *Return to ER if you should have increasing pain, fever, persistent vomiting or any new, worsening or concerning symptoms Prescriptions: No Action montelukast 10 mg tablet 1 tab PO DAILY RF: 0 albuterol sulfate [ProAir HFA] 90 mcg/actuation HFA aerosol inhaler 1 puff Inhalation PRN PRN (Reason: Shortness Of Breath) RF: 0 sucralfate [Carafate] 100 mg/mL suspension 10 ml PO QID Qty: 420 RF: 0 pantoprazole 40 mg tablet,delayed release (DR/EC) 40 mg PO DAILY Qty: 30 RF: 0 Referrals: [facility] [Outside]
[2018-01-04] MEDS: KETOROLAC 60 MG/2 ML VIAL 30 MG IV (10:50)
[2018-01-04 10:59] VITALS: BP 155/90; PULSE 70; RESP 15; O2SAT 98
== END 2018-01-04 11:04 | disposition home or self-care (01) ==
PROVIDERS: Emergency Provider Emergency Medicine
DX: K80.20 Calculus of gallbladder without cholecystitis without obstruction (principal)
CPT/HCPCS: 36591; 76700; 80053; 83690; 85025; 93005; 93010; 96374; 96375; 99282; 99285; C9113; J1885

== ENCOUNTER 2018-09-14 04:49 | Emergency (ER) | payer OTHER, SELFPAY ==
[2018-09-14 04:54] VITALS: BP 166/116; PULSE 73; RESP 18; TEMP 36.5; O2SAT 95; BMI 39.9
--- NOTE | 2018-09-14 04:57 | DI.RAD.S_ITS ---
PROCEDURE: XR CHEST 1V INDICATIONS: SOB TECHNIQUE: One view of the chest was acquired. COMPARISON: [facility], CR, XR CHEST 1V, 01/02/2018, 11:20. FINDINGS: Surgical changes and devices: None. Lungs and pleura: Lungs are clear. No pleural effusions or pneumothorax. Mediastinum: Mediastinal contours appear normal. Heart size is normal. Bones and chest wall: No suspicious bony lesions. Overlying soft tissues appear unremarkable. IMPRESSION: No acute cardiopulmonary disease process. Dictated by: Lesley Rivera MD, PhD on 09/14/2018 at 8:00 Approved by: Lesley Rivera MD, PhD on 09/14/2018 at 8:00
--- NOTE | 2018-09-14 05:06 | ED_ITS ---
HPI - Abdominal Pain General Chief Complaint: Abdominal Pain Stated Complaint: chest pain, nausea Time Seen by Provider: 09/14/18 04:55 Source: patient Mode of arrival: ambulatory Limitations: no limitations History of Present Illness HPI narrative: Patient is a 28-year-old male with known gallbladder disease here for evaluation of right upper quadrant abdominal pain. Patient states that his symptoms started a couple hours prior to arrival. He states that he did he pizza last evening. No nausea vomiting. Does have some diarrhea but he states that is unrelated to the symptoms that brought him in this evening. No prior abdominal surgeries. Has not tried anything for symptoms prior to arrival Related Data Home Medications Medication Instructions Recorded Confirmed albuterol sulfate [ProAir HFA] 1 puff INHALATION PRN PRN 01/02/18 01/04/18 montelukast 1 tab PO DAILY 01/02/18 01/04/18 Previous Rx's Medication Instructions Recorded pantoprazole 40 mg PO DAILY #30 tab 01/02/18 sucralfate [Carafate] 10 ml PO QID #420 ml 01/02/18 Allergies Allergy/AdvReac Type Severity Reaction Status Date / Time No Known Drug Allergies Allergy Verified 01/04/18 08:27 Review of Systems Constitutional Denies fever(s) Cardiovascular Denies chest pain and Denies dyspnea Respiratory Denies dyspnea Gastrointestinal Gastrointestinal: Reports abdominal pain, Reports diarrhea, Denies nausea and Denies vomiting Genitourinary Denies dysuria Musculoskeletal Denies myalgias and Denies arthralgias Integumentary/Breasts Denies rash Hematologic/Lymphatic Denies easy bleeding and Denies easy bruising [facility] Medical History GERD (gastroesophageal reflux disease) (Acute) Obesity (Acute) Social History Smoking Status: Current some day smoker Social History Smoking Status: Current some day smoker Exam Initial Vital Signs Initial Vital Signs: Vital Signs Temperature 97.7 F 09/14/18 04:54 Pulse Rate 73 09/14/18 04:54 Respiratory Rate 18 09/14/18 04:54 Blood Pressure 166/116 H 09/14/18 04:54 Pulse Oximetry 95 09/14/18 04:54 Const General: cooperative, comfortable, well developed, well groomed and No acute di stress Orientation: alert, awake and oriented x3 HENMT Head: normal to inspection and normocephalic Resp Effort & Inspection: normal respiratory effort Auscultation: clear to auscultation bilaterally Cardio Rate: regular rate Rhythm: regular rhythm GI Inspection: non-distended Palpation: No firm and tender (Right upper quadrant, positive Armas sign) Skin Lesions: no lesions Rashes: no rashes Neuro General: alert and awake Cognition: normal cognition Speech: speech normal Extrem General: normal to inspection and capillary refill normal Course Orders Ordered: ED Orders 09/14/18 04:56 EKG-12 Lead Stat 09/14/18 04:57 XR chest 1V Stat 09/14/18 05:15 Complete Blood Count AUTO DIFF Stat Comprehensive Metabolic Panel Stat Lipase Stat 09/14/18 05:36 US abdomen limited Stat Discontinued Medications Ketorolac Tromethamine (Toradol) 30 mg IV NOW ONE Stop: 09/14/18 05:07 Last Admin: 09/14/18 05:19 Dose: 30 mg Pantoprazole Sodium (Protonix) 40 mg IV NOW ONE Stop: 09/14/18 05:07 Last Admin: 09/14/18 05:19 Dose: 40 mg Vital Signs - 8 hr 09/14/18 04:54 09/14/18 05:33 09/14/18 06:06 Temperature 97.7 F Pulse Rate 73 64 68 Respiratory Rate 18 18 18 Blood Pressure 166/116 H Blood Pressure [Left Arm] 158/104 H 149/92 H Pulse Oximetry 95 96 97 MDM - Abdominal Pain Lab Data Attestation: I reviewed the patient's lab results. Result diagrams: 09/14/18 05:15 09/14/18 05:15 Lab Results 09/14/18 09/14/18 Range/Units 05:15 05:15 WBC 8.8 (4.5-11.0) X10^3/uL RBC 5.15 (4.5-5.9) X10^6/uL Hgb 16.4 (13.5-17.5) g/dL Hct 47.4 (41-53) % MCV 92.1 (80-100) fL MCH 31.9 (26-34) PG MCHC 34.7 (30-36) % RDW 12.8 (11.6-14.8) % Plt Count 257 (150-400) X10^3/uL Neut % (Auto) 67.6 (50-75) % Lymph % (Auto) 22.1 L (25-40) % [place] % (Auto) 7.5 (3-14) % Eos % (Auto) 2.5 (2-4) % Baso % (Auto) 0.3 (0-2) % Neut # (Auto) 6000 (6594-0343) /uL Lymph # (Auto) 1900 (0186-3616) /uL [place] # (Auto) 700 (0-900) /uL Eos # (Auto) 200 (0-450) /uL Baso # (Auto) 0 (0-100) /uL Sodium 141 (137-145) mmol/L Potassium 4.0 (3.4-5.1) mmol/L Chloride 103 (98-107) mmol/L Carbon Dioxide 26 (22-32) mmol/L BUN 14 (9-20) mg/dL Creatinine 0.80 (0.66-1.25) mg/dL Estimated GFR > 60.0 (>60) mL/min BUN/Creatinine Ratio 17.5 (6-22) Glucose 108 H (70-100) mg/dL Calcium 9.1 (8.4-10.2) mg/dL Total Bilirubin 0.5 (0.2-1.3) mg/dL AST 39 (17-59) IU/L ALT 89 H (21-72) IU/L Alkaline Phosphatase 58 (38-126) U/L Total Protein 7.8 (6.3-8.2) g/dL Albumin 4.5 (3.5-5.0) g/dL Globulin 3.3 (1.7-4.1) g/dL Albumin/Globulin Ratio 1.4 (1.0-2.8) Lipase 97 (23-300) U/L Imaging Data Chest x-ray: Attestation: I personally reviewed and interpreted this imaging study as follows: My impression: Normal size heart No pneumonia No acute pathology US - abdomen: Radiologist's impression: Cholelithiasis. No sonographic evidence of acute cholecystitis. No gallbladder wall thickening or pericholecystic fluid. No bile duct dilation. ECG Data Attestation: I personally reviewed and interpreted this ECG as follows: Prior ECG tracings: not available for review Interpretation: Sinus rhythm Ventricular rate is 67 Normal axis Normal intervals Normal QRS Normal QTC No ST T wave changes MDM Narrative Medical decision making narrative: Patient was sleeping in the room when I went in to talk to him about his ultrasound results. He stated that his symptoms are down to a dull pain. LFTs are unremarkable. Lipase is unremarkable. Ultrasound shows no signs of acute cholecystitis. Was sent home with symptom control. He was given follow-up and return precautions. Patient expressed understanding and agreement with plan Discharge Plan Departure Patient Disposition: Home Clinical Impression: Cholelithiasis Qualifiers: Cholelithiasis location: gallbladder Cholecystitis presence: without cholecystitis Biliary obstruction: without biliary obstruction Qualified Code(s): K80.20 - Calculus of gallbladder without cholecystitis without obstruction Abdominal pain Qualifiers: Abdominal location: right upper quadrant Qualified Code(s): R10.11 - Right upper quadrant pain Instructions: DI for Gallstones Activity Restrictions/Additional Instructions: I do recommend you contact your primary doctor and also the [facility] at [phone] to discuss possible surgical intervention. Return to the emergency department for any new or worsening symptoms Prescriptions: No Action montelukast 10 mg tablet 1 tab PO DAILY RF: 0 albuterol sulfate [ProAir HFA] 90 mcg/actuation HFA aerosol inhaler 1 puff Inhalation PRN PRN (Reason: Shortness Of Breath) RF: 0 sucralfate [Carafate] 100 mg/mL suspension 10 ml PO QID Qty: 420 RF: 0 pantoprazole 40 mg tablet,delayed release (DR/EC) 40 mg PO DAILY Qty: 30 RF: 0
[2018-09-14] MEDS: KETOROLAC 60 MG/2 ML VIAL 30 MG IV (05:19)
[2018-09-14] MEDS: PANTOPRAZOLE 40 MG VIAL IV (05:19)
[2018-09-14 05:23] LABS: Add Manual Diff / Slide Review NO; Basophils Absolute Auto 0 /uL (0-100); Basophils Percent Auto 0.3 % (0-2); Eosinophils Absolute Auto 200 /uL (0-450); Eosinophils Percent Auto 2.5 % (2-4); Hematocrit 47.4 % (41-53); Hemoglobin 16.4 g/dL (13.5-17.5); Lymphocytes Absolute Auto 1900 /uL (1100-4500); Lymphocytes Percent Auto 22.1 % (25-40); Mean Corpuscular HGB Conc 34.7 % (30-36); Mean Corpuscular Hemoglobin 31.9 PG (26-34); Mean Corpuscular Volume 92.1 fL (80-100); Monocytes Absolute Auto 700 /uL (0-900); Monocytes Percent Auto 7.5 % (3-14); Neutrophils Absolute Auto 6000 /uL (1500-7000); Neutrophils Percent Auto 67.6 % (50-75); Platelet Count 257 X10^3/uL (150-400); Red Blood Cell Count 5.15 X10^6/uL (4.5-5.9); Red Cell Distribution Width 12.8 % (11.6-14.8); White Blood Cell Count 8.8 X10^3/uL (4.5-11.0)
[2018-09-14 05:31] LABS: Alanine Aminotransferase 89 IU/L (21-72); Albumin 4.5 g/dL (3.5-5.0); Albumin Globulin Ratio 1.4 (1.0-2.8); Alkaline Phosphatase 58 U/L (38-126); Aspartate Aminotransferase 39 IU/L (17-59); BUN Creatinine Ratio 17.5 (6-22); Bilirubin Total 0.5 mg/dL (0.2-1.3); Blood Urea Nitrogen 14 mg/dL (9-20); Calcium 9.1 mg/dL (8.4-10.2); Carbon Dioxide 26 mmol/L (22-32); Chloride 103 mmol/L (98-107); Estimated Glomerular Filt Rate > 60.0 mL/min (>60); Globulin 3.3 g/dL (1.7-4.1); Glucose 108 mg/dL (70-100); HEMOLYSIS 16 (0-50); Lipase 97 U/L (23-300); Sodium 141 mmol/L (137-145); Total Protein 7.8 g/dL (6.3-8.2)
[2018-09-14 05:33] VITALS: BP 158/104; PULSE 64; RESP 18; O2SAT 96
--- NOTE | 2018-09-14 05:36 | DI.US.S_ITS ---
PROCEDURE: US ABDOMEN LIMITED INDICATIONS: RUQ PAIN TECHNIQUE: Real-time focused scanning was performed of the abdomen, with image documentation. COMPARISON: [facility], US, US ABDOMEN COMPLETE, 01/04/2018, 9:16. FINDINGS: Liver is diffusely increased in echogenicity. No focal hepatic abnormalities identified. Normal hepatic size. Several gallstones are present, one of which may be impacted within the gallbladder neck and/or cystic duct. No gallbladder wall thickening. Extrahepatic bile duct not well visualized. Grossly normal appearance of the pancreas. IMPRESSION: 1. Increased hepatic echogenicity noted possibly related to hepatic steatosis but other sources of hepatocellular disease cannot be excluded. Recommend clinical correlation. 2. Cholelithiasis with one stone likely impacted within the gallbladder neck and/or cystic duct. No gallbladder wall thickening. Dictated by: Vladimir CHAU Interpreted: Philippe Gallegos MD on 09/14/2018 at 8:09 Approved by: Philippe Gallegos M.D. on 09/14/2018 at 12:05
[2018-09-14 06:06] VITALS: BP 149/92; PULSE 68; RESP 18; O2SAT 97
[2018-09-14 07:21] VITALS: BP 137/82; PULSE 66; RESP 15; O2SAT 98
[2018-09-14 08:02] VITALS: BP 136/84; PULSE 64; RESP 15; O2SAT 93
[2018-09-14] MEDS: ONDANSETRON 4 MG ODT PREPACK 1 BOTTLE MISC (08:13)
[2018-09-14] MEDS: HYDROCODONE/ACET 5/325 PREPACK 1 BOTTLE MISC (08:13)
[2018-09-14 08:30] VITALS: BP 136/84; PULSE 64; RESP 18; O2SAT 99
== END 2018-09-14 08:28 | disposition home or self-care (01) ==
PROVIDERS: Emergency Provider Emergency Medicine
DX: K80.20 Calculus of gallbladder without cholecystitis without obstruction (principal); R10.13 Epigastric pain; R10.11 Right upper quadrant pain; R06.02 Shortness of breath
CPT/HCPCS: 36591; 71045; 76705; 80053; 83690; 85025; 93005; 93010; 96374; 96375; 99283; 99285; C9113; J1885

== ENCOUNTER 2019-03-23 13:49 | Emergency (ER) | payer OTHER, MEDICAID, SELFPAY ==
[2019-03-23 14:03] VITALS: BP 164/93; PULSE 92; RESP 18; TEMP 36.7; O2SAT 99; BMI 38.0
--- NOTE | 2019-03-23 14:13 | ED_ITS ---
HPI - URI/Sore Throat <ROSE MARY Fajardo - Last Filed: 03/23/19 20:29> General Chief Complaint: Upper Respiratory Symptoms Stated Complaint: foggy head/muscle spasms x3 days Time Seen by Provider: 03/23/19 13:57 Source: patient Mode of arrival: Ambulatory Limitations: no limitations History of Present Illness HPI Narrative: The patient is a 28-year-old current marijuana smoker with his tory of gallstones who presents with vague complaints including generalized fatigue,foggy head,and the muscle aches and spasms for the past 5 days or so. He states he recently got back from a [place] time in [facility] and started feeling tired after he returned. He denies any nausea vomiting or diarrhea. Denies any abdominal pain. He denies any fever. Denies any sore throat or ear pain. Complains of cough. Has not taken anything to feel better. States that he came to the emergency department today because he is ?sick of feeling this way. Related Data Previous Rx's Medication Instructions Recorded amoxicillin 500 mg capsule 500 mg PO BID #20 cap 10/22/18 Allergies Allergy/AdvReac Type Severity Reaction Status Date / Time No Known Drug Allergies Allergy Verified 10/22/18 13:27 Review of Systems <ROSE MARY Fajardo - Last Filed: 03/23/19 20:29> Review of Systems Narrative: General: Denies chills, fatigue, malaise, fever, sweats. HEENT: Denies sinus pain, ear pain, sore throat, difficulty swallowing, dizziness. RESPIRATORY: Denies dyspnea, cough, wheezing, hemoptysis, sputum. CARDIOVASCULAR: Denies chest pain, palpitations, orthopnea, edema, GASTROINTESTINAL: Denies nausea, vomiting, abdominal pain, diarrhea, constipation, melena. : Denies dysuria, frequency, incontinence, hematuria, urinary retention. MUSCULOSKELETAL: denies weakness, joint pain, or bony pain SKIN: Denies rash, skin lesions, or other NEUROLOGIC: Denies weakness, headache, numbness, change in speech, confusion, seizures, incoordination. PSYCHIATRIC: No concerning psychosocial issues. 12 point review of systems is negative except for those stated above Patient History <ROSE MARY Fajardo - Last Filed: 03/23/19 20:29> Medical History GERD (gastroesophageal reflux disease) (Acute) Obesity (Acute) Social History Smoking Status: Current every day smoker alcohol intake frequency: a few times a week Alcohol type: beer and hard liquor Substance Use Type: marijuana Exam <ROSE MARY Fajardo - Last Filed: 03/23/19 20:29> Narrative Exam Narrative: GENERAL: This is a well-nourished, well-developed patient, no acute distress HEAD: Atraumatic. Normocephalic. No temporal or scalp tenderness. EYES: Pupils equal round and reactive. Extraocular motions intact. No scleral icterus. No injection or drainage. ENT: Nose without bleeding, purulent drainage or septal hematoma. Throat without erythema, tonsillar hypertrophy or exudate. Uvula midline. Airway patent. Bilateral TMs pearly patiño. NECK: Trachea midline. No JVD or lymphadenopathy. Supple, nontender, no meningeal signs. CARDIOVASCULAR: Regular rate and rhythm without murmurs, gallops, or rubs. RESPIRATORY: Clear to auscultation. Breath sounds equal bilaterally. No wheezes, rales, or rhonchi. No cough. No increased respiratory effort. No accessory muscle use. GASTROINTESTINAL: Abdomen soft, non-tender, nondistended. No hepato-splenomeg vicki, or palpable masses. No guarding. EXTREMITIES: No clubbing, cyanosis, or edema. No joint tenderness, effusion, or edema noted. BACK: Nontender without deformity or crepitance. No flank tenderness. NEURO: AOx3. Interactive. Stable gait. SKIN: No rash or erythema on visible skin Initial Vital Signs Initial Vital Signs: Vital Signs Temperature 98.0 F 03/23/19 14:03 Pulse Rate 92 H 03/23/19 14:03 Respiratory Rate 18 03/23/19 14:03 Blood Pressure 164/93 H 03/23/19 14:03 Pulse Oximetry 99 03/23/19 14:03 <Olga Mcdaniel DO - Last Filed: 03/26/19 07:25> Initial Vital Signs Initial Vital Signs: Vital Signs Temperature 98.0 F 03/23/19 14:03 Pulse Rate 92 H 03/23/19 14:03 Respiratory Rate 18 03/23/19 14:03 Blood Pressure 164/93 H 03/23/19 14:03 Pulse Oximetry 99 03/23/19 14:03 Course <ROSE MARY Fajardo - Last Filed: 03/23/19 20:29> Orders Ordered: Discontinued Medications Acetaminophen (Tylenol) 975 mg PO NOW ONE Stop: 03/23/19 14:11 Last Admin: 03/23/19 14:46 Dose: 975 mg Documented by: [email or web address] Vital Signs Vital signs: Vital Signs - 8 hr 03/23/19 14:03 03/23/19 16:37 Temperature 98.0 F Pulse Rate 92 H 81 Respiratory Rate 18 16 Blood Pressure 164/93 H Blood Pressure [Right Arm] 159/92 H Pulse Oximetry 99 99 <Olga Mcdaniel DO - Last Filed: 03/26/19 07:25> Orders Ordered: Discontinued Medications Acetaminophen (Tylenol) 975 mg PO NOW ONE Stop: 03/23/19 14:11 Last Admin: 03/23/19 14:46 Dose: 975 mg Documented by: [employer] Vital Signs Vital signs: Vital Signs - 8 hr 03/23/19 14:03 03/23/19 16:37 Temperature 98.0 F Pulse Rate 92 H 81 Respiratory Rate 18 16 Blood Pressure 164/93 H Blood Pressure [Right Arm] 159/92 H Pulse Oximetry 99 99 MDM - URI/Sore Throat <ROSE MARY Fajardo - Last Filed: 03/23/19 20:29> Lab Data Result diagrams: 03/23/19 14:57 03/23/19 14:57 Labs: Lab Results 03/23/19 03/23/19 03/23/19 Range/Units 14:09 14:47 14:47 WBC (4.5-11.0) X10^3/uL RBC (4.5-5.9) X10^6/uL Hgb (13.5-17.5) g/dL Hct (41-53) % MCV (80-100) fL MCH (26-34) PG MCHC (30-36) % RDW (11.6-14.8) % Plt Count (150-400) X10^3/uL Neut % (Auto) (50-75) % Lymph % (Auto) (25-40) % [place] % (Auto) (3-14) % Eos % (Auto) (2-4) % Baso % (Auto) (0-2) % Neut # (Auto) (4750-4480) /uL Lymph # (Auto) (1955-1897) /uL [place] # (Auto) (0-900) /uL Eos # (Auto) (0-450) /uL Baso # (Auto) (0-100) /uL Sodium (137-145) mmol/L Potassium (3.4-5.1) mmol/L Chloride (98-107) mmol/L Carbon Dioxide (22-32) mmol/L BUN (9-20) mg/dL Creatinine (0.66-1.25) mg/dL Estimated GFR (>60) mL/min BUN/Creatinine Ratio (6-22) Glucose (70-100) mg/dL Calcium (8.4-10.2) mg/dL Magnesium (1.6-2.3) mg/dL Total Bilirubin (0.2-1.3) mg/dL AST (17-59) IU/L ALT (<50) IU/L Alkaline Phosphatase (38-126) U/L Total Protein (6.3-8.2) g/dL Albumin (3.5-5.0) g/dL Globulin (1.7-4.1) g/dL Albumin/Globulin Ratio (1.0-2.8) Amylase (30-110) U/L Lipase (23-300) U/L TSH (0.47-4.68) uIU/mL Urine Color Yellow Urine Appearance Clear Urine pH 6.5 (4.5-8.0) Ur Specific [place] 1.015 (1.000-1.035) Urine Protein Negative (Negative) Urine Glucose (UA) Negative (Negative) g/dL Urine Ketones Trace H (NEGATIVE) Urine Occult Blood Negative (Negative) Urine Nitrate Negative (Negative) Urine Bilirubin Negative (NEGATIVE) Urine Urobilinogen 0.2 (0.2) E.U./dL Ur Leukocyte Esterase Negative (NEGATIVE) Urine RBC None seen (0-5/HPF) Urine WBC 0-1/hpf (0-5/HPF) Urine Bacteria None seen (None) Ur Culture Indicated? Cult not indicated Micro UA Comment Microscopic normal U Morph 300 ng/mL cutoff Negative (Negative) Ur Oxycodone Screen Negative (Negative) Urine Methadone Screen Negative (Negative) Ur Barbiturates Screen Negative (Negative) U Tricyclic Antidepress Negative (Negative) Ur Phencyclidine Scrn Negative (Negative) Ur Amphetamines Screen Negative (Negative) U Methamphetamines Scrn Negative (Negative) Ur MDMA Scrn (Ecstasy) Negative (Negative) U Benzodiazepines Scrn Negative (Negative) Urine Cocaine Screen Negative (Negative) U Marijuana (THC) Screen Negative (Negative) Influenza A & B (PCR) Negative (Negative) 03/23/19 03/23/19 03/23/19 Range/Units 14:57 14:57 14:57 WBC 7.4 (4.5-11.0) X10^3/uL RBC 4.90 (4.5-5.9) X10^6/uL Hgb 15.4 (13.5-17.5) g/dL Hct 44.7 (41-53) % MCV 91.3 (80-100) fL MCH 31.4 (26-34) PG MCHC 34.4 (30-36) % RDW 12.5 (11.6-14.8) % Plt Count 232 (150-400) X10^3/uL Neut % (Auto) 70.3 (50-75) % Lymph % (Auto) 21.6 L (25-40) % [place] % (Auto) 4.8 (3-14) % Eos % (Auto) 2.9 (2-4) % Baso % (Auto) 0.4 (0-2) % Neut # (Auto) 5200 (2875-4697) /uL Lymph # (Auto) 1600 (3448-0018) /uL [place] # (Auto) 400 (0-900) /uL Eos # (Auto) 200 (0-450) /uL Baso # (Auto) 0 (0-100) /uL Sodium 141 (137-145) mmol/L Potassium 4.4 (3.4-5.1) mmol/L Chloride 106 (98-107) mmol/L Carbon Dioxide 26 (22-32) mmol/L BUN 14 (9-20) mg/dL Creatinine 0.70 (0.66-1.25) mg/dL Estimated GFR > 60.0 (>60) mL/min BUN/Creatinine Ratio 20.0 (6-22) Glucose 129 H (70-100) mg/dL Calcium 9.1 (8.4-10.2) mg/dL Magnesium 2.2 (1.6-2.3) mg/dL Total Bilirubin 0.5 (0.2-1.3) mg/dL AST 67 H (17-59) IU/L ALT 87 H (<50) IU/L Alkaline Phosphatase 60 (38-126) U/L Total Protein 7.6 (6.3-8.2) g/dL Albumin 4.3 (3.5-5.0) g/dL Globulin 3.3 (1.7-4.1) g/dL Albumin/Globulin Ratio 1.3 (1.0-2.8) Amylase (30-110) U/L Lipase (23-300) U/L TSH 2.03 (0.47-4.68) uIU/mL Urine Color Urine Appearance Urine pH (4.5-8.0) Ur Specific [place] (1.000-1.035) Urine Protein (Negative) Urine Glucose (UA) (Negative) g/dL Urine Ketones (NEGATIVE) Urine Occult Blood (Negative) Urine Nitrate (Negative) Urine Bilirubin (NEGATIVE) Urine Urobilinogen (0.2) E.U./dL Ur Leukocyte Esterase (NEGATIVE) Urine RBC (0-5/HPF) Urine WBC (0-5/HPF) Urine Bacteria (None) Ur Culture Indicated? Micro UA Comment U Morph 300 ng/mL cutoff (Negative) Ur Oxycodone Screen (Negative) Urine Methadone Screen (Negative) Ur Barbiturates Screen (Negative) U Tricyclic Antidepress (Negative) Ur Phencyclidine Scrn (Negative) Ur Amphetamines Screen (Negative) U Methamphetamines Scrn (Negative) Ur MDMA Scrn (Ecstasy) (Negative) U Benzodiazepines Scrn (Negative) Urine Cocaine Screen (Negative) U Marijuana (THC) Screen (Negative) Influenza A & B (PCR) (Negative) 03/23/19 Range/Units 14:57 WBC (4.5-11.0) X10^3/uL RBC (4.5-5.9) X10^6/uL Hgb (13.5-17.5) g/dL Hct (41-53) % MCV (80-100) fL MCH (26-34) PG MCHC (30-36) % RDW (11.6-14.8) % Plt Count (150-400) X10^3/uL Neut % (Auto) (50-75) % Lymph % (Auto) (25-40) % [place] % (Auto) (3-14) % Eos % (Auto) (2-4) % Baso % (Auto) (0-2) % Neut # (Auto) (0784-5069) /uL Lymph # (Auto) (4126-4815) /uL [place] # (Auto) (0-900) /uL Eos # (Auto) (0-450) /uL Baso # (Auto) (0-100) /uL Sodium (137-145) mmol/L Potassium (3.4-5.1) mmol/L Chloride (98-107) mmol/L Carbon Dioxide (22-32) mmol/L BUN (9-20) mg/dL Creatinine (0.66-1.25) mg/dL Estimated GFR (>60) mL/min BUN/Creatinine Ratio (6-22) Glucose (70-100) mg/dL Calcium (8.4-10.2) mg/dL Magnesium (1.6-2.3) mg/dL Total Bilirubin (0.2-1.3) mg/dL AST (17-59) IU/L ALT (<50) IU/L Alkaline Phosphatase (38-126) U/L Total Protein (6.3-8.2) g/dL Albumin (3.5-5.0) g/dL Globulin (1.7-4.1) g/dL Albumin/Globulin Ratio (1.0-2.8) Amylase 83 (30-110) U/L Lipase 97 (23-300) U/L TSH (0.47-4.68) uIU/mL Urine Color Urine Appearance Urine pH (4.5-8.0) Ur Specific [place] (1.000-1.035) Urine Protein (Negative) Urine Glucose (UA) (Negative) g/dL Urine Ketones (NEGATIVE) Urine Occult Blood (Negative) Urine Nitrate (Negative) Urine Bilirubin (NEGATIVE) Urine Urobilinogen (0.2) E.U./dL Ur Leukocyte Esterase (NEGATIVE) Urine RBC (0-5/HPF) Urine WBC (0-5/HPF) Urine Bacteria (None) Ur Culture Indicated? Micro UA Comment U Morph 300 ng/mL cutoff (Negative) Ur Oxycodone Screen (Negative) Urine Methadone Screen (Negative) Ur Barbiturates Screen (Negative) U Tricyclic Antidepress (Negative) Ur Phencyclidine Scrn (Negative) Ur Amphetamines Screen (Negative) U Methamphetamines Scrn (Negative) Ur MDMA Scrn (Ecstasy) (Negative) U Benzodiazepines Scrn (Negative) Urine Cocaine Screen (Negative) U Marijuana (THC) Screen (Negative) Influenza A & B (PCR) (Negative) MDM Narrative Medical decision making narrative: The patient is a 28-year-old male who presents with a chief complaint of general fatigue and muscle spasms after a trip to [place] with his friends. He has been exposed to multiple sick people including his mother. He has no indications of bacterial infection on exam or on lab work. He is not anemic. His TSH is range. I discussed at length comfort care including [id number] medications as needed and able, resting pushing fluids as well as follow-up with primary care provider. Discussed c oming back to the emergency department for any acute concerns such as chest pain, shortness of breath, concern of heart attack or stroke. Patient has no questions or concerns upon discharge and states understanding of return precautions as well as follow-up care. <Olga Mcdaniel, DO - Last Filed: 03/26/19 07:25> Lab Data Labs: Lab Results 03/23/19 03/23/19 03/23/19 Range/Units 14:09 14:47 14:47 WBC (4.5-11.0) X10^3/uL RBC (4.5-5.9) X10^6/uL Hgb (13.5-17.5) g/dL Hct (41-53) % MCV (80-100) fL MCH (26-34) PG MCHC (30-36) % RDW (11.6-14.8) % Plt Count (150-400) X10^3/uL Neut % (Auto) (50-75) % Lymph % (Auto) (25-40) % [place] % (Auto) (3-14) % Eos % (Auto) (2-4) % Baso % (Auto) (0-2) % Neut # (Auto) (1369-8555) /uL Lymph # (Auto) (0784-9027) /uL [place] # (Auto) (0-900) /uL Eos # (Auto) (0-450) /uL Baso # (Auto) (0-100) /uL Sodium (137-145) mmol/L Potassium (3.4-5.1) mmol/L Chloride (98-107) mmol/L Carbon Dioxide (22-32) mmol/L BUN (9-20) mg/dL Creatinine (0.66-1.25) mg/dL Estimated GFR (>60) mL/min BUN/Creatinine Ratio (6-22) Glucose (70-100) mg/dL Calcium (8.4-10.2) mg/dL Magnesium (1.6-2.3) mg/dL Total Bilirubin (0.2-1.3) mg/dL AST (17-59) IU/L ALT (<50) IU/L Alkaline Phosphatase (38-126) U/L Total Protein (6.3-8.2) g/dL Albumin (3.5-5.0) g/dL Globulin (1.7-4.1) g/dL Albumin/Globulin Ratio (1.0-2.8) Amylase (30-110) U/L Lipase (23-300) U/L TSH (0.47-4.68) uIU/mL Urine Color Yellow Urine Appearance Clear Urine pH 6.5 (4.5-8.0) Ur Specific [place] 1.015 (1.000-1.035) Urine Protein Negative (Negative) Urine Glucose (UA) Negative (Negative) g/dL Urine Ketones Trace H (NEGATIVE) Urine Occult Blood Negative (Negative) Urine Nitrate Negative (Negative) Urine Bilirubin Negative (NEGATIVE) Urine Urobilinogen 0.2 (0.2) E.U./dL Ur Leukocyte Esterase Negative (NEGATIVE) Urine RBC None seen (0-5/HPF) Urine WBC 0-1/hpf (0-5/HPF) Urine Bacteria None seen (None) Ur Culture Indicated? Cult not indicated Micro UA Comment Microscopic normal U Morph 300 ng/mL cutoff Negative (Negative) Ur Oxycodone Screen Negative (Negative) Urine Methadone Screen Negative (Negative) Ur Barbiturates Screen Negative (Negative) U Tricyclic Antidepress Negative (Negative) Ur Phencyclidine Scrn Negative (Negative) Ur Amphetamines Screen Negative (Negative) U Methamphetamines Scrn Negative (Negative) Ur MDMA Scrn (Ecstasy) Negative (Negative) U Benzodiazepines Scrn Negative (Negative) Urine Cocaine Screen Negative (Negative) U Marijuana (THC) Screen Negative (Negative) Influenza A & B (PCR) Negative (Negative) 03/23/19 03/23/19 03/23/19 Range/Units 14:57 14:57 14:57 WBC 7.4 (4.5-11.0) X10^3/uL RBC 4.90 (4.5-5.9) X10^6/uL Hgb 15.4 (13.5-17.5) g/dL Hct 44.7 (41-53) % MCV 91.3 (80-100) fL MCH 31.4 (26-34) PG MCHC 34.4 (30-36) % RDW 12.5 (11.6-14.8) % Plt Count 232 (150-400) X10^3/uL Neut % (Auto) 70.3 (50-75) % Lymph % (Auto) 21.6 L (25-40) % [place] % (Auto) 4.8 (3-14) % Eos % (Auto) 2.9 (2-4) % Baso % (Auto) 0.4 (0-2) % Neut # (Auto) 5200 (9620-3674) /uL Lymph # (Auto) 1600 (2651-2272) /uL [place] # (Auto) 400 (0-900) /uL Eos # (Auto) 200 (0-450) /uL Baso # (Auto) 0 (0-100) /uL Sodium 141 (137-145) mmol/L Potassium 4.4 (3.4-5.1) mmol/L Chloride 106 (98-107) mmol/L Carbon Dioxide 26 (22-32) mmol/L BUN 14 (9-20) mg/dL Creatinine 0.70 (0.66-1.25) mg/dL Estimated GFR > 60.0 (>60) mL/min BUN/Creatinine Ratio 20.0 (6-22) Glucose 129 H (70-100) mg/dL Calcium 9.1 (8.4-10.2) mg/dL Magnesium 2.2 (1.6-2.3) mg/dL Total Bilirubin 0.5 (0.2-1.3) mg/dL AST 67 H (17-59) IU/L ALT 87 H (<50) IU/L Alkaline Phosphatase 60 (38-126) U/L Total Protein 7.6 (6.3-8.2) g/dL Albumin 4.3 (3.5-5.0) g/dL Globulin 3.3 (1.7-4.1) g/dL Albumin/Globulin Ratio 1.3 (1.0-2.8) Amylase (30-110) U/L Lipase (23-300) U/L TSH 2.03 (0.47-4.68) uIU/mL Urine Color Urine Appearance Urine pH (4.5-8.0) Ur Specific [place] (1.000-1.035) Urine Protein (Negative) Urine Glucose (UA) (Negative) g/dL Urine Ketones (NEGATIVE) Urine Occult Blood (Negative) Urine Nitrate (Negative) Urine Bilirubin (NEGATIVE) Urine Urobilinogen (0.2) E.U./dL Ur Leukocyte Esterase (NEGATIVE) Urine RBC (0-5/HPF) Urine WBC (0-5/HPF) Urine Bacteria (None) Ur Culture Indicated? Micro UA Comment U Morph 300 ng/mL cutoff (Negative) Ur Oxycodone Screen (Negative) Urine Methadone Screen (Negative) Ur Barbiturates Screen (Negative) U Tricyclic Antidepress (Negative) Ur Phencyclidine Scrn (Negative) Ur Amphetamines Screen (Negative) U Methamphetamines Scrn (Negative) Ur MDMA Scrn (Ecstasy) (Negative) U Benzodiazepines Scrn (Negative) Urine Cocaine Screen (Negative) U Marijuana (THC) Screen (Negative) Influenza A & B (PCR) (Negative) 03/23/19 Range/Units 14:57 WBC (4.5-11.0) X10^3/uL RBC (4.5-5.9) X10^6/uL Hgb (13.5-17.5) g/dL Hct (41-53) % MCV (80-100) fL MCH (26-34) PG MCHC (30-36) % RDW (11.6-14.8) % Plt Count (150-400) X10^3/uL Neut % (Auto) (50-75) % Lymph % (Auto) (25-40) % [place] % (Auto) (3-14) % Eos % (Auto) (2-4) % Baso % (Auto) (0-2) % Neut # (Auto) (8407-6299) /uL Lymph # (Auto) (5976-3726) /uL [place] # (Auto) (0-900) /uL Eos # (Auto) (0-450) /uL Baso # (Auto) (0-100) /uL Sodium (137-145) mmol/L Potassium (3.4-5.1) mmol/L Chloride (98-107) mmol/L Carbon Dioxide (22-32) mmol/L BUN (9-20) mg/dL Creatinine (0.66-1.25) mg/dL Estimated GFR (>60) mL/min BUN/Creatinine Ratio (6-22) Glucose (70-100) mg/dL Calcium (8.4-10.2) mg/dL Magnesium (1.6-2.3) mg/dL Total Bilirubin (0.2-1.3) mg/dL AST (17-59) IU/L ALT (<50) IU/L Alkaline Phosphatase (38-126) U/L Total Protein (6.3-8.2) g/dL Albumin (3.5-5.0) g/dL Globulin (1.7-4.1) g/dL Albumin/Globulin Ratio (1.0-2.8) Amylase 83 (30-110) U/L Lipase 97 (23-300) U/L TSH (0.47-4.68) uIU/mL Urine Color Urine Appearance Urine pH (4.5-8.0) Ur Specific [place] (1.000-1.035) Urine Protein (Negative) Urine Glucose (UA) (Negative) g/dL Urine Ketones (NEGATIVE) Urine Occult Blood (Negative) Urine Nitrate (Negative) Urine Bilirubin (NEGATIVE) Urine Urobilinogen (0.2) E.U./dL Ur Leukocyte Esterase (NEGATIVE) Urine RBC (0-5/HPF) Urine WBC (0-5/HPF) Urine Bacteria (None) Ur Culture Indicated? Micro UA Comment U Morph 300 ng/mL cutoff (Negative) Ur Oxycodone Screen (Negative) Urine Methadone Screen (Negative) Ur Barbiturates Screen (Negative) U Tricyclic Antidepress (Negative) Ur Phencyclidine Scrn (Negative) Ur Amphetamines Screen (Negative) U Methamphetamines Scrn (Negative) Ur MDMA Scrn (Ecstasy) (Negative) U Benzodiazepines Scrn (Negative) Urine Cocaine Screen (Negative) U Marijuana (THC) Screen (Negative) Influenza A & B (PCR) (Negative) Discharge Plan Departure Patient Disposition: Home Clinical Impression: Viral infection Fatigue Qualifiers: Fatigue type: unspecified Qualified Code(s): R53.83 - Other fatigue Discharge Date/Time: 03/23/19 16:38 Instructions: DI for Viral Upper Respiratory Infection -- Adult, DI for Fatigue Activity Restrictions/Additional Instructions: Your lab work came back normal today. Your exam is overall normal. Please rest and push fluids. Please follow up with primary care provider in the next few days. Please come back to the emergency department for any acute concerns such as chest pain, shortness of breath, concern of heart attack or stroke Prescriptions: No Action amoxicillin 500 mg capsule 500 mg PO BID Qty: 20 RF: 0 Referrals: Sanju Manzanares MD [Primary Care Provider] -
[2019-03-23 14:32] LABS: Influenza A and B by PCR Rapid Negative (Negative)
[2019-03-23] MEDS: ACETAMINOPHEN 325 MG TABLET 975 MG PO (14:46)
[2019-03-23 15:03] LABS: Add Manual Diff / Slide Review NO; Basophils Absolute Auto 0 /uL (0-100); Basophils Percent Auto 0.4 % (0-2); Eosinophils Absolute Auto 200 /uL (0-450); Eosinophils Percent Auto 2.9 % (2-4); Hematocrit 44.7 % (41-53); Hemoglobin 15.4 g/dL (13.5-17.5); Lymphocytes Absolute Auto 1600 /uL (1100-4500); Lymphocytes Percent Auto 21.6 % (25-40); Mean Corpuscular HGB Conc 34.4 % (30-36); Mean Corpuscular Hemoglobin 31.4 PG (26-34); Mean Corpuscular Volume 91.3 fL (80-100); Monocytes Absolute Auto 400 /uL (0-900); Monocytes Percent Auto 4.8 % (3-14); Neutrophils Absolute Auto 5200 /uL (1500-7000); Neutrophils Percent Auto 70.3 % (50-75); Platelet Count 232 X10^3/uL (150-400); Red Cell Distribution Width 12.5 % (11.6-14.8); White Blood Cell Count 7.4 X10^3/uL (4.5-11.0)
[2019-03-23 15:19] LABS: Alanine Aminotransferase 87 IU/L (<50); Albumin 4.3 g/dL (3.5-5.0); Albumin Globulin Ratio 1.3 (1.0-2.8); Alkaline Phosphatase 60 U/L (38-126); Aspartate Aminotransferase 67 IU/L (17-59); Bilirubin Total 0.5 mg/dL (0.2-1.3); Blood Urea Nitrogen 14 mg/dL (9-20); Calcium 9.1 mg/dL (8.4-10.2); Carbon Dioxide 26 mmol/L (22-32); Chloride 106 mmol/L (98-107); Estimated Glomerular Filt Rate > 60.0 mL/min (>60); Globulin 3.3 g/dL (1.7-4.1); Glucose 129 mg/dL (70-100); HEMOLYSIS 25 (0-50); Magnesium 2.2 mg/dL (1.6-2.3); Potassium 4.4 mmol/L (3.4-5.1); Sodium 141 mmol/L (137-145); Total Protein 7.6 g/dL (6.3-8.2)
[2019-03-23 15:20] LABS: Amylase 83 U/L (30-110); Lipase 97 U/L (23-300)
[2019-03-23 15:36] LABS: Bacteria Urine None Seen; RBC Urine None Seen (0-5/HPF)
[2019-03-23 15:48] LABS: UR Morphine/Opiate cutoff 300 Negative (Negative); Ur Creatinine 100 (Normal); Ur Specific Gravity 1.025 (Normal); Urine Amphetamines Negative (Negative); Urine Barbiturates Negative (Negative); Urine Benzodiazepines Negative (Negative); Urine Cocaine Negative (Negative); Urine MDMA Negative (Negative); Urine Methadone Negative (Negative); Urine Methamphetamines Negative (Negative); Urine Oxycodone Negative (Negative); Urine Phencyclidine Negative (Negative); Urine Tetrahydrocannabinol Negative (Negative); Urine Tricyclic Antidepressant Negative (Negative); Urine pH PH5 (Normal)
[2019-03-23 15:50] LABS: Appearance Urine UA CLEAR; Bilirubin Urine UA NEGATIVE (NEGATIVE); Color Urine UA YELLOW; Culture Indicated Urine Cult Not Indicated; Glucose Urine UA NEGATIVE (Negative); Ketones Urine UA TRACE (NEGATIVE); Leukocyte Esterase Urine UA NEGATIVE (NEGATIVE); Nitrite Urine UA NEGATIVE (Negative); Occult Blood Urine UA NEGATIVE (Negative); Protein Urine UA NEGATIVE (Negative); Specific Gravity Urine UA 1.015 (1.000-1.035); Urine Comments Microscopic Normal; Urobilinogen Urine UA 0.2 E.U./dL (0.2); WBC Urine 0-1/HPF (0-5/HPF); pH Urine UA 6.5 (4.5-8.0)
[2019-03-23 16:09] LABS: Thyroid Stimulating Hormone 2.03 uIU/mL (0.47-4.68)
[2019-03-23 16:37] VITALS: BP 159/92; PULSE 81; RESP 16; O2SAT 99
== END 2019-03-23 16:38 | disposition home or self-care (01) ==
PROVIDERS: Emergency Provider Nurse Practitioner Family; PCP Internal Medicine
DX: B34.9 Viral infection, unspecified (principal); R53.83 Other fatigue
CPT/HCPCS: 36415; 80053; 80305; 81001; 82150; 83690; 83735; 84443; 85025; 87502; 99282; 99283

== ENCOUNTER 2019-03-26 07:07 | Emergency (ER) | payer OTHER, MEDICAID, SELFPAY ==
[2019-03-26 07:19] VITALS: BP 152/98; PULSE 68; RESP 13; TEMP 36.6; O2SAT 98
--- NOTE | 2019-03-26 07:23 | ED_ITS ---
HPI - Abdominal Pain General Chief Complaint: Abdominal Pain Stated Complaint: abd bloated chest is hurting foggy Time Seen by Provider: 03/26/19 07:22 Source: patient and old records reviewed Mode of arrival: Ambulatory Limitations: no limitations History of Present Illness HPI narrative: The patient is a 28-year-old male who presents with abdominal bloating. He has actually seen evaluated here on 03/23/2019 for something similar. He went to [facility] for a few days got back and felt just generally weak and fatigued. He continues to feel like abdominal bloating no nausea or vomiting. He says he can't eat very much as he instantly feels like his abdomen is distended. He has no fevers or sweats. He feels a little foggy headed as well which has not gone away. He was instructed that if his symptoms did not get better in a couple days to return to the emergency department. NPO since 1:00 a.m. last evening MD complaint: abdominal pain Onset (ago): day(s) Pain Consistency: intermittent Quality: fullness Migration to: no migration Relieving factors: nothing Exacerbating factors: nothing Related Data Home Medications Medication Instructions Recorded Confirmed No Known Home Medications 03/26/19 03/26/19 Allergies Allergy/AdvReac Type Severity Reaction Status Date / Time No Known Drug Allergies Allergy Verified 10/22/18 13:27 Review of Systems Review of Systems Narrative: GENERAL: Denies chills, fatigue, malaise, fever, sweats, travel HEENT: Denies sinus pain, ear pain, sore throat, difficulty swallowing, neck pain RESPIRATORY: Denies dyspnea, cough, wheezing, hemoptysis, sputum. CARDIOVASCULAR: Denies chest pain, palpitations, orthopnea, edema GASTROINTESTINAL: + abdominal bloating, see HPI : Denies dysuria, frequency, incontinence, hematuria, urinary retention, flank pain. MUSCULOSKELETAL: Denies weakness, joint pain, or bony pain SKIN: No rash, no erythema, no pruritus NEUROLOGIC: Denies weakness, dizziness, headache, numbness, change in speech, confusion PSYCHIATRIC: No concerning psychosocial issues. 12 point review of systems is negative except for those stated above and HPI Patient History Medical History GERD (gastroesophageal reflux disease) (Acute) Obesity (Acute) Social History Smoking Status: Current every day smoker alcohol intake frequency: a few times a week Alcohol type: beer and hard liquor Substance Use Type: marijuana Exam Initial Vital Signs Initial Vital Signs: Vital Signs Temperature 98 F 03/26/19 07:19 Pulse Rate 68 03/26/19 07:19 Respiratory Rate 13 03/26/19 07:19 Blood Pressure 152/98 H 03/26/19 07:19 Pulse Oximetry 98 03/26/19 07:19 GENERAL: Overweight male and in no acute distress. HEENT: Head atraumatic,EOMI, pupils reactive, face symmetric, moist mucous membranes CARDIOVASCULAR: Regular rate and rhythm without murmurs, rubs or gallops. RESPIRATORY: Breath sounds equal bilaterally, no wheezes rales or rhonchi. ABDOMEN: Tender right upper quadrant positive Armas sign no guarding or rebound EXTREMITIES: Normal range of motion, no clubbing or edema. Neurovascularly intact NEUROLOGICAL: Alert and oriented x4.Normal gait and speech. Cranial nerves II through XII grossly intact. SKIN: Warm, dry, no laceration, no petechiae, no rashes or lesions. Course Orders Ordered: ED Orders 03/26/19 07:16 EKG-12 Lead Routine 03/26/19 07:35 US abdomen limited Stat 03/26/19 07:47 Complete Blood Count AUTO DIFF Stat Comprehensive Metabolic Panel Stat Lipase Stat Discontinued Medications Ketorolac Tromethamine (Toradol) 30 mg IV NOW ONE Stop: 03/26/19 07:35 Last Admin: 03/26/19 08:09 Dose: 30 mg Documented by: LAMAR Murillo Consultation #1: Dr. Hernandez, Time: 09:29 Vital Signs Vital signs: Vital Signs - 8 hr 03/26/19 07:19 03/26/19 08:13 03/26/19 09:41 Temperature 98 F Pulse Rate 68 68 81 Respiratory Rate 13 14 12 Blood Pressure 152/98 H Blood Pressure [Left Arm] 129/74 141/88 H Pulse Oximetry 98 100 MDM - Abdominal Pain Lab Data Attestation: I reviewed the patient's lab results. Result diagrams: 03/26/19 07:47 03/26/19 07:47 Labs: Lab Results 03/26/19 03/26/19 Range/Units 07:47 07:47 WBC 7.6 (4.5-11.0) X10^3/uL RBC 4.90 (4.5-5.9) X10^6/uL Hgb 15.5 (13.5-17.5) g/dL Hct 44.8 (41-53) % MCV 91.3 (80-100) fL MCH 31.7 (26-34) PG MCHC 34.7 (30-36) % RDW 12.3 (11.6-14.8) % Plt Count 240 (150-400) X10^3/uL Neut % (Auto) 66.5 (50-75) % Lymph % (Auto) 24.0 L (25-40) % Powell % (Auto) 5.8 (3-14) % Eos % (Auto) 3.4 (2-4) % Baso % (Auto) 0.3 (0-2) % Neut # (Auto) 5100 (4225-5051) /uL Lymph # (Auto) 1800 (0295-7466) /uL Powell # (Auto) 400 (0-900) /uL Eos # (Auto) 300 (0-450) /uL Baso # (Auto) 0 (0-100) /uL Sodium 140 (137-145) mmol/L Potassium 4.1 (3.4-5.1) mmol/L Chloride 105 (98-107) mmol/L Carbon Dioxide 27 (22-32) mmol/L BUN 18 (9-20) mg/dL Creatinine 0.80 (0.66-1.25) mg/dL Estimated GFR > 60.0 (>60) mL/min BUN/Creatinine Ratio 22.5 H (6-22) Glucose 115 H (70-100) mg/dL Calcium 9.9 (8.4-10.2) mg/dL Total Bilirubin 0.6 (0.2-1.3) mg/dL AST 66 H (17-59) IU/L ALT 122 H (<50) IU/L Alkaline Phosphatase 54 (38-126) U/L Total Protein 7.8 (6.3-8.2) g/dL Albumin 4.5 (3.5-5.0) g/dL Globulin 3.3 (1.7-4.1) g/dL Albumin/Globulin Ratio 1.4 (1.0-2.8) Lipase 87 (23-300) U/L Point of care testing: Urine Dip Bedside Urine Glucose Negative Bedside Urine Bilirubin - Negative Bedside Urine Ketone - Negative Urine Specific [place] 1.025 Bedside Urine Occult Blood - Negative Bedside Urine pH 6.0 Bedside Urine Protein - Negative Bedside Urine Urobilinogen - Negative Bedside Urine Nitrite - Negative Bedside Urine Leukocytes - Negative Esterase Imaging Data US - abdomen: Radiologist's impression: PROCEDURE: US ABDOMEN LIMITED INDICATIONS: ruq TECHNIQUE: Real-time focused scanning was performed of the abdomen, with image documentation. COMPARISON: [facility], US, US ABDOMEN LIMITED, 09/14/2018, 6:31. FINDINGS: The liver is mildly enlarged at 21.7 cm craniocaudad and demonstrates increased echotexture diffusely consistent with moderate fatty infiltration. There is a 2 cm gallstone lodged within the gallbladder neck, but the gallbladder wall is not yet enlarged at 2.6 mm. There is tenderness, however, during sonographic palpation. IMPRESSION: Impacted gall stone within the gallbladder neck measuring up to 2.0 cm with tenderness during sonographic palpation. Fatty infiltration throughout the mildly enlarged liver. Early acute cholecystitis would be suspected. Biliary distention has not yet developed. Surgical consultation may be warranted at this time. Dictated by: Graeme Alejandro M.D. on 03/26/2019 at 9:02 ECG Data Attestation: I personally reviewed and interpreted this ECG as follows: Prior ECG tracings: available for review Interpretation: Normal sinus rhythm rate 70 p.r. interval 152 QRS [address] changes MDM Narrative Medical decision making narrative: Patient has no fever no leukocytosis normal bilirubin minimally elevated liver enzymes ALT is only slightly more elevated than previously. He has had known gallstones in the past. Patient is worried because he has no insurance, he said it stop suddenly 4 days ago he previously had [employer] insurance through the state. Someone has been in to the patient's room to discuss insurance options with him. I have discussed with him the need for surgery and for his gallbladder to be taken out. I discussed all findings with the patient , Education has been performed regarding treatment plan, diagnosis, warning signs and symptoms and all concerns have been addressed. Verbally agree with and understood all of the above. Discharge Plan Departure Patient Disposition: Home Clinical Impression: Cholelithiasis Qualifiers: Cholelithiasis location: gallbladder Cholecystitis presence: without cho lecystitis Biliary obstruction: without biliary obstruction Qualified Code(s): K80.20 - Calculus of gallbladder without cholecystitis without obstruction Discharge Date/Time: 03/26/19 09:50 Instructions: DI for Gallstones Activity Restrictions/Additional Instructions: *You have been diagnosed with gallstones *What to do: You will need to have your gallbladder removed, you have a very large stone in your gallbladder. At this time not emergent. *Continue to take medications as directed Ibuprofen 800 mg every 8 hours if needed for [id number] pain *Follow up with your primary care provider in 2-3 days Call surgery today to schedule follow-up appointment *Return to ER if you should have increasing right upper quadrant pain, persistent vomiting, fever or any new, worsening or concerning symptoms Prescriptions: No Action No Known Home Medications RF: 0 Referrals: [facility] [Provider Group] Sanju Manzanares MD [Primary Care Provider] - El Hernandez MD [Physician] -
--- NOTE | 2019-03-26 07:35 | DI.US.S_ITS ---
PROCEDURE: US ABDOMEN LIMITED INDICATIONS: ruq TECHNIQUE: Real-time focused scanning was performed of the abdomen, with image documentation. COMPARISON: [facility], , US ABDOMEN LIMITED, 09/14/2018, 6:31. FINDINGS: The liver is mildly enlarged at 21.7 cm craniocaudad and demonstrates increased echotexture diffusely consistent with moderate fatty infiltration. There is a 2 cm gallstone lodged within the gallbladder neck, but the gallbladder wall is not yet enlarged at 2.6 mm. There is tenderness, however, during sonographic palpation. IMPRESSION: Impacted gall stone within the gallbladder neck measuring up to 2.0 cm with tenderness during sonographic palpation. Fatty infiltration throughout the mildly enlarged liver. Early acute cholecystitis would be suspected. Biliary distention has not yet developed. Surgical consultation may be warranted at this time. Dictated by: Graeme Alejandro M.D. on 03/26/2019 at 9:02 Approved by: Graeme Alejandro M.D. on 03/26/2019 at 9:03
[2019-03-26 07:56] LABS: Add Manual Diff / Slide Review NO; Basophils Absolute Auto 0 /uL (0-100); Basophils Percent Auto 0.3 % (0-2); Eosinophils Absolute Auto 300 /uL (0-450); Eosinophils Percent Auto 3.4 % (2-4); Hematocrit 44.8 % (41-53); Hemoglobin 15.5 g/dL (13.5-17.5); Lymphocytes Absolute Auto 1800 /uL (1100-4500); Mean Corpuscular HGB Conc 34.7 % (30-36); Mean Corpuscular Hemoglobin 31.7 PG (26-34); Mean Corpuscular Volume 91.3 fL (80-100); Monocytes Absolute Auto 400 /uL (0-900); Monocytes Percent Auto 5.8 % (3-14); Neutrophils Absolute Auto 5100 /uL (1500-7000); Neutrophils Percent Auto 66.5 % (50-75); Platelet Count 240 X10^3/uL (150-400); Red Cell Distribution Width 12.3 % (11.6-14.8); White Blood Cell Count 7.6 X10^3/uL (4.5-11.0)
[2019-03-26 08:06] LABS: Alanine Aminotransferase 122 IU/L (<50); Albumin 4.5 g/dL (3.5-5.0); Albumin Globulin Ratio 1.4 (1.0-2.8); Alkaline Phosphatase 54 U/L (38-126); Aspartate Aminotransferase 66 IU/L (17-59); BUN Creatinine Ratio 22.5 (6-22); Bilirubin Total 0.6 mg/dL (0.2-1.3); Blood Urea Nitrogen 18 mg/dL (9-20); Calcium 9.9 mg/dL (8.4-10.2); Carbon Dioxide 27 mmol/L (22-32); Chloride 105 mmol/L (98-107); Estimated Glomerular Filt Rate > 60.0 mL/min (>60); Globulin 3.3 g/dL (1.7-4.1); Glucose 115 mg/dL (70-100); HEMOLYSIS < 15 (0-50); Lipase 87 U/L (23-300); Potassium 4.1 mmol/L (3.4-5.1); Sodium 140 mmol/L (137-145); Total Protein 7.8 g/dL (6.3-8.2)
[2019-03-26] MEDS: KETOROLAC 60 MG/2 ML VIAL 30 MG IV (08:09)
[2019-03-26 08:13] VITALS: BP 129/74; PULSE 68; RESP 14
--- NOTE | 2019-03-26 09:14 | PC.NURSE ---
Called Admissions Counselor, who will see patient re: insurance needs.
[2019-03-26 09:41] VITALS: BP 141/88; PULSE 81; RESP 12; O2SAT 100
== END 2019-03-26 09:50 | disposition home or self-care (01) ==
PROVIDERS: Emergency Provider Emergency Medicine; PCP Internal Medicine
DX: K80.20 Calculus of gallbladder without cholecystitis without obstruction (principal); R10.11 Right upper quadrant pain
CPT/HCPCS: 36415; 76705; 80053; 81003; 83690; 85025; 93005; 96374; 99283; 99285; J1885

== ENCOUNTER 2019-04-25 15:35 | Emergency (ER) | payer OTHER, MEDICAID, SELFPAY ==
[2019-04-25 15:53] VITALS: BP 139/93; PULSE 75; RESP 16; TEMP 36.2; O2SAT 97; BMI 38.0
--- NOTE | 2019-04-25 18:35 | ED.GIBLEED ---
HPI - GI Bleed General Chief complaint: GI Bleed Stated complaint: blood in stool and abdominal pain Time Seen by Provider: 04/25/19 18:00 Source: patient Mode of arrival: Ambulatory Limitations: no limitations History of Present Illness HPI Narrative: 28-year-old male daily smoker without significant medical history presents with a few days of constipation and straining on the toilet and now some small amount of bright red blood on stool. He denies any significant pain and large amount of blood. He denies black stool or the use of blood thinners. He denies N/V. He's had no obvious hemorrhoids. He has taken stool softeners and experienced success MD complaint: blood on toilet paper Onset (ago): day(s) Pain Consistency: now resolved Severity: mild Exacerbating factors: bowel movement Context: hemorrhoids Associated symptoms: abdominal pain Treatments Prior to Arrival: suppositories Related Data Home Medications Medication Instructions Recorded Confirmed No Known Home Medications 03/26/19 04/05/19 Allergies Allergy/AdvReac Type Severity Reaction Status Date / Time No Known Drug Allergies Allergy Verified 04/04/19 14:27 Review of Systems Constitutional Constitutional: Denies chills, Denies fatigue, Denies fever(s), Denies frequent falls, Denies lethargy and Denies weakness Eyes Eyes: Denies change in vision, Denies eye discharge, Denies irritation and Denies loss of vision ENT Ears, Nose, Mouth, and Throat: Denies change in voice, Denies dizziness, Denies neck pain, Denies sore throat and Denies throat swelling Cardiovascular Cardiovascular: Denies chest pain, Denies irregular heart rhythm, Denies lightheadedness, Denies palpitations, Denies dyspnea, Denies dyspnea on exertion and Denies orthopnea Respiratory Respiratory: Denies cough, Denies dyspnea, Denies dyspnea on exertion and Denies wheezing Gastrointestinal Gastrointestinal: Reports abdominal pain (now resolved), Reports hematochezia (minimal), Denies change in bowel habits, Reports constipation, Denies diarrhea, Denies nausea and Denies vomiting Genitourinary Genitourinary: Denies hematuria, Denies flank pain, Denies urinary incontinence and Denies urinary urgency Musculoskeletal Musculoskeletal: Denies back pain, Denies muscle weakness, Denies neck pain, Denies numbness and Denies tingling Integumentary/Breasts Skin/Breast: Denies pruritus, Denies erythema, Denies rash and Denies wounds Neurologic Neurologic: Denies behavioral changes, Denies confusion, Denies dizziness, Denies frequent falls, Denies loss of vision, Denies numbness, Denies tingling and Denies weakness Psychiatric Psychiatric: Denies anxiety, Denies behavioral changes, Denies confusion, Denies depression, Denies homicidal ideation and Denies suicidal ideation Endocrine Endocrine: Denies fatigue, Denies flushing and Denies palpitations Hematologic/Lymphatic Hematologic/Lymphatic: Denies easy bruising Allergic/Immunologic Allergic/Immunologic: Denies urticaria, Denies throat swelling and Denies wheezing Patient History Medical History GERD (gastroesophageal reflux disease) (Acute) Surgical History No history of previous surgery (Acute) Social History occupational status: employed Smoking Status: Current every day smoker alcohol intake: current Smoking Status: Current every day smoker alcohol intake frequency: a few times a week Alcohol type: beer and hard liquor Substance Use Type: marijuana Exam Narrative Exam Narrative: GEN: AOx3 and in mild distress EYES: Pupils are equal, round, and reactive to light and accommodation. Extraoccular muscles are intact bilaterally. There is no subconjunctival hemorrhage or exudate. CHEST: Lungs are clear to auscultation bilaterally and free of wheezes, rales, or rhonchi. Heart rate is regular rhythm, there are no murmurs, clicks, rubs, or gallops. There is no chest wall tenderness. ABD: Abdomen is soft and nontender. There is no guarding or rebound. Bowel sounds are normal in all 4 quadrants. There is no mass or organomegaly. RECTAL: no fiissure, small internal hemorrhoid. Heme + EXT: Full painless ROM of all extremities with no loss of sensation or strength. SKIN: Warm, pink, and dry. No erythema or rash Initial Vital Signs Initial Vital Signs: Vital Signs Temperature 97.2 F L 04/25/19 15:53 Pulse Rate 75 04/25/19 15:53 Respiratory Rate 16 04/25/19 15:53 Blood Pressure 139/93 H 04/25/19 15:53 Pulse Oximetry 97 04/25/19 15:53 Course Vital Signs Vital signs: Vital Signs - 8 hr 04/25/19 15:53 Temperature 97.2 F L Pulse Rate 75 Respiratory Rate 16 Blood Pressure 139/93 H Pulse Oximetry 97 Discharge Plan Departure Patient Disposition: Home Clinical Impression: Bright red rectal bleeding Constipation Qualifiers: Constipation type: unspecified constipation type Qualified Code(s): K59.00 - Constipation, unspecified Discharge Date/Time: 04/25/19 18:54 Activity Restrictions/Additional Instructions: 1. Stay active 2. Return to your normal diet as much as possible 3. Stay well hydrated 4. A combination of over the counter laxitives including Dulcolax (stimulant laxative) Miralax Colace (stool softener) Prescriptions: No Action No Known Home Medications RF: 0 Referrals: Sanju Manzanares MD [Primary Care Provider] -
--- NOTE | 2019-04-25 18:51 | PC.NURSE ---
Entered room, introduced self. Pt states he doesn't want to wait any more. Told pt that Dr. Nielson should be here soon. Verbalizes understanding but states he thinks he will come back if it gets worse. Notified and entered room to do exam.
== END 2019-04-25 18:54 | disposition home or self-care (01) ==
PROVIDERS: Emergency Provider Emergency Medicine; PCP Internal Medicine
DX: K62.5 Hemorrhage of anus and rectum (principal); K59.00 Constipation, unspecified
CPT/HCPCS: 99281; 99282

== ENCOUNTER → 2019-05-08 10:53 | Day surgery (SDC) | payer OTHER, MEDICAID, SELFPAY ==
[2019-04-05 10:19] VITALS: BMI 41.1
[2019-05-08 11:17] VITALS: BP 151/91; PULSE 80; RESP 16; TEMP 36.6; O2SAT 95; BMI 40.1
[2019-05-08] MEDS: LACTATED RINGERS 1,000 ML 100 ML IV (11:35)
--- NOTE | 2019-05-08 14:05 | SUR.PREOP ---
Pt kept informed about delay of surgery, still would like to proceed. Pt assisted to BR steady when up, back to bed w/o incident.
--- NOTE | 2019-05-08 15:13 | SUR.PREOP ---
Pt informed previous case would be longer than initially thought, pt given the option to have the surgery today or reschedule, pt talked to mom and decided it would be best to reschedule, IV d/c'ed and pt left unit in stable condition.
== END ==
PROVIDERS: PCP Internal Medicine; Visit Provider Surgery

== ENCOUNTER 2019-05-29 12:11 | Day surgery (SDC) | payer OTHER, MEDICAID, SELFPAY ==
[2019-05-28 11:37] VITALS: BMI 39.3
[2019-05-29] VITALS (7 sets, daily range): BP systolic 113–125; BP diastolic 57–83; PULSE 64–83; RESP 12–17; TEMP 36.4–36.9; O2SAT 96–98; BMI 40.9
--- NOTE | 2019-05-29 | PATH_ITS ---
[facility] Accession Number: [id number] . 01 Material submitted: . gallbladder - GALLBLADDER AND CONTENTS . 02 Diagnosis: Gallbladder, Cholecystectomy: Chronic cholecystitis with cholelithiasis. Negative for dysplasia and malignancy. MRV 05/31/2019 1354 Local . 02 Electronically signed: . Ena Madera MD, Pathologist NPI- [id number] . 01 Gross description: . Received in formalin, labeled gallbladder and contents, is an opened gallbladder (length-9.8 cm, diameter-2.3 cm) with patiño-pink smooth and shiny serosa and a patent cystic duct. No lymph nodes are identified. The lumen contains a ram-yellow semi-translucent oblong calculi (2.5 x 1.5 x 1.5 cm) with a crystalline cut surface. The mucosa is ram smooth and flat. The wall is up to 0.1 cm thick. No nodules, masses or lesions are identified. Section code: (A1) cystic duct resection margin and two serial sections from the body; (A2) two longitudinal sections from the fundus. ([id number]) /[facility] 05/30/2019 1741 Local . 02 Pathologist provided ICD-10: K80.20 . 02 CPT . 992469 Performed at: 01 [facility] [address], [place], [place] [id number] MD Daquan Vnace MD Phone: [phone] Performed at: 02 [facility] [address] [place], [place] [id number] MD Ena Madera MD Phone: [phone]
[2019-05-29] MEDS: LACTATED RINGERS 1,000 ML 100 ML IV ×2 (13:01→14:13)
--- NOTE | 2019-05-29 13:25 | PM.HP.1 ---
History of Present Illness History of Present Illness Date Patient Seen: 05/29/19 Time Patient Seen: 13:25 Chief complaint: [id number] Narrative: This is a 29-year-old man with history of morbid obesity, BMI 41, and many episodes of right upper quadrant pain which resulted in visits to the emergency room over the past couple of years. He has had several right upper quadrant ultrasounds which have shown gallstones, but no signs of cholecystitis. He says that his symptoms usually come on after eating, and last for couple of hours, and usually resolve on their own. However, sometimes he has had more significant pain and went into the ER. Each time he was given pain medication and sent home with recommendations to see a surgeon as an outpatient. He has never had any episodes of jaundice or fevers associated with his biliary colic. Other than his obesity, he denies any other significant medical problems. ROS: Thirteen system review is negative other than as mentioned below and in HPI. PE: GENERAL: Well groomed and cooperative. Appears stated age. Morbidly obese. Answers questions promptly and appropriately. Vital signs noted. HENT: Normocephalic, atraumatic. Hearing intact. Oral mucosa is pink and moist. EYES: Conjunctiva pink, sclera white, no periorbital swelling. CARDIOVASCULAR: Regular rate. No pedal edema. RESPIRATORY: Non tachypneic, breathing comfortably on room air. GASTROINTESTINAL: Abdomen soft and non-distended, nontender GENITALURINARY: No flank tenderness. MUSCULOSKELETAL: Equal tone and mass bilaterally. SKIN: Warm, dry, soft, appropriate color for ethnicity. No other lesions, rashes, or wounds. NEURO: Alert and Oriented X 3. No gross sensory deficits, or cognitive issues. PSYCH: Appropriate affect and mood. Patient History Medical History Asthma (Acute) Breathing-related sleep disorder (Acute) Chronic insomnia (Acute) Constipation (Acute) Diverticulitis (Acute) Elevated cholesterol (Acute) GERD (gastroesophageal reflux disease) (Acute) History of PFTs (Acute ~08/2017) Surgical History No history of previous surgery (Acute) Family & Social History Social History: household members family,friend(s) Tobacco & Substance use: Tobacco type cigarettes Smoking Status Current every day smoker alcohol intake current alcohol intake frequency a few times a week Substance Use Type marijuana Meds Home Medications and Allergies Home Medications Medication Instructions Recorded Confirmed Type No Known Home Medications 03/26/19 04/05/19 History Allergies Allergy/AdvReac Type Severity Reaction Status Date / Time No Known Drug Allergies Allergy Verified 05/21/19 08:33 Exam Vital Signs (past 8 hours): - 05/29/19 12:36 Temperature 97.7 F Pulse Rate 64 Respiratory Rate 16 Blood Pressure 122/80 Pulse Oximetry 97 Oxygen Delivery Method Room Air Assessment & Plan Assessment and plan (1) Diverticulitis: Current visit: No Status: Acute (2) Atypical chest pain: Current visit: No Status: Acute (3) Esophageal spasm: Current visit: No Status: Acute (4) Morbid obesity with BMI of 40.0-44.9, adult: Current visit: No Status: Acute (5) Biliary colic: Problem details: Risks and benefits of laparoscopic, possible open cholecystectomy were discussed with the patient including risk of bleeding, but infection, damage to nearby structures, bile leak, need for additional procedures, need for open surgery, need for prolonged hospitalization. The patient desires to proceed with surgery. Current visit: No Status: Acute Assessment & Plan narrative: This is a Quality VTE Deep Vein Thrombosis/Pulmonary Embolism Present on Admission: No
[2019-05-29] MEDS: PIPERACILLIN-TAZO 4.5 GM/100 ML FROZ.PIGGY IV (13:46)
[2019-05-29] MEDS: BUPIVACAINE 0.25% W/ EPI 30 ML VIAL 60 ML INJ (14:11)
--- NOTE | 2019-05-29 16:01 | P.OP_ITS ---
Operative Date/Time/Diagnoses Date of procedure: 05/29/19 Time of procedure: 16:01 Pre-op diagnosis: chronic biliary colic, gall stones Post-op diagnosis: other (chronic cholecystitis, chronic biliary colic, gall stones) Procedure & Clinicians Procedure: laparoscopic cholecystectomy, cholangiography with Indocyanine green and fluorescent lamp Same procedure as scheduled: Yes Indications: Symptomatic cholelithiasis Surgeon: Jazzmine Montero Click Yes if Unassisted: Yes Anesthesia Type: General Operative Notes Findings: Elongated thickened gall bladder, large gall stone, good critical view of safety Specimen(s): other (gall bladder) Estimated Blood Loss (mL): 50 Blood products transfused: none Procedure in detail: extensive adhesions to gall bladder, elongated gall bladder with large stone; good critical view, very intra hepatic, very vascular; good hemostasis at the conclusion The patient was brought into the operating room and placed supine on the OR table. Sequential compression devices were placed on both legs and turned on. Appropriate perioperative antibiotics were given prior to the start of surgery. General anesthesia was induced the patient was intubated. The abdomen was prepped and draped in sterile fashion. Surgical time-out was conducted. Local anesthetic was injected under the skin just superior to the umbilicus and a 5 mm vertical incision was made at this site. The umbilical stalk was grasped with a Randall and elevated. A Veress needle was passed through the fascia into proper position. The position was tested with a saline drop test which was appropriate for intra-abdominal Veress needle placement. The abdomen was then insufflated in the usual fashion. Once insufflated to 15 mm Hg the Veress needle was removed and a 5 mm optical trocar was placed under direct vision using a 5 mm 30 degree scope. Once the camera was inside the abdomen I took a look around. There was no injury from port placement. Two additional ports were placed in a similar fashion in the right upper quadrant and a 10 mm port was placed in the epig astrium. There was densely adherent omentum overlying the gallbladder, which was highly vascular with large varices in the omentum. I placed clips on several of the varices in order to gain hemostasis. Once the gallbladder was cleared of adherent omentum, it was grasped and elevated through the 2 lateral ports using toothed graspers. The gallbladder was grasped and elevated and the infundibulum was retracted laterally to the patient's right. This exposed the gallbladder hilum and allowed for dissection of the cystic duct and cystic artery. There was heavy scar tissue covering the gallbladder hilum. This required tedious careful dissection to avoid injury to the bile ducts. ICG was given prior to coming back in to the OR, and at this point was active in the biliary system. At this point in the operation I was able to use the fluorescent lamp to view the bile ducts. The cystic duct was socked in with overlying fat tissue. The ICG cholangiography was able to demonstrate the cystic duct anteriorly, going directly into the gall bladder. Using this information I carefully dissected out the cystic duct along the expected trajectory based on the ICG image. I was able to see the lower surface of the gallbladder going right into the cystic duct, with liver behind and no other structures in the way. This gave a good critical view of safety. I then doubly clipped the cystic duct and cystic artery, and divided it with laparoscopic scissors. Following this the gallbladder was gradually dissected free from the liver using hook cautery. There were dense vascular adhesions which required ongoing hemostasis with cautery and cips. Once the gallbladder was entirely freed, it was placed inside an Endo-Catch bag and removed through the epigastric port site. I did not have to enlarge the epigastric site in order to get the gallbladder out. Once it was out and passed off to the back table I then took another look inside the abdomen. I used suction glass robot operator to clear bloody fluid from the lateral side of the liver and from the subhepatic space. I took another look at the fossa, and noted three areas of bleeding along the rough surface of the fossa. These areas were controlled with cautery with good hemostasis. I then placed a piece of surgicel in the gall bladder fossa. No further welling up of blood was seen. There was no further active bleeding or leaking of bile from the gallbladder fossa or from the clipped stumps of the cystic duct and artery. Then a suture Passer was used to place 0 Vicryl sutures in the fascia at the epigastric port site. Extra local anesthetic was given at that location. At this point the insufflation was removed from the abdomen and the epigastric port site was closed with 3 O Vicryl in the subcutaneous layers, and 4 Monocryl in the skin. The remaining port sites were closed with 4 Monocryl in the skin. Each port site was sealed with Dermabond. Local anesthetic was given at each of the port sites and in the fascia. This concluded the procedure. At this point the needle sponge and instrument counts were correct. The gallbladder was passed off the table for pathology. Patient was awakened from anesthesia and extubated. She was transferred to the postanesthesia care unit in stable condition. Complications: none Post-operative Condition: stable Disposition: PACU
[2019-05-29] MEDS: HYDROMORPHONE 2 MG INJ IV ×2 (16:19→16:24)
--- NOTE | 2019-05-29 16:27 | SUR.PHASEI ---
report to Christina BISHOP
[2019-05-29] MEDS: OXYCODONE/ACETAMINOPHEN 5/325 TABLET 1 TAB PO (16:52)
--- NOTE | 2019-05-29 17:04 | SUR.PHASEII ---
Dr Montero to bedside to discuss post-op follow up.
--- NOTE | 2019-05-29 17:12 | SUR.PHASEII ---
Discharge instructions discussed with patient and grandfather. RX for oxycodone given. Instructed patient to take stool softener for constipation. V/u.
== END 2019-05-29 17:13 | disposition home or self-care (01) ==
PROVIDERS: PCP Internal Medicine; Visit Provider Surgery
PROC: 0FT44ZZ Resection of Gallbladder, Percutaneous Endoscopic Approach (ICD-10-PCS; CPT 47562; principal; 2019-05-29 12:45)
DX: K80.10 Calculus of gallbladder with chronic cholecystitis without obstruction (principal); Z68.41 Body mass index [BMI] 40.0-44.9, adult; E66.01 Morbid (severe) obesity due to excess calories; F17.210 Nicotine dependence, cigarettes, uncomplicated; K66.0 Peritoneal adhesions (postprocedural) (postinfection)
CPT/HCPCS: 47563; J0330; J1100; J1170; J1885; J2250; J2405; J2543; J2704; J3010

== ENCOUNTER 2020-05-20 13:04 | Emergency (ER) | payer OTHER, MEDICAID, SELFPAY ==
[2020-05-20 13:11] VITALS: BP 147/95; PULSE 96; RESP 20; TEMP 37.2; O2SAT 99; BMI 42.7
--- NOTE | 2020-05-20 13:14 | DI.RAD.S_ITS ---
PROCEDURE: XR FOOT RT MIN 3V INDICATIONS: medial/instep pain, ran over with a fence wheel TECHNIQUE: 3 views of the foot were acquired. COMPARISON: None. FINDINGS: Bones: No fractures or dislocations. No suspicious bony lesions. Soft tissues: No tibiotalar joint effusion. Achilles tendon appears normal. IMPRESSION: No evidence acute bony abnormality of the right foot Dictated by: Philippe Gallegos M.D. on 05/20/2020 at 13:44 Approved by: Philippe Gallegos M.D. on 05/20/2020 at 13:45
--- NOTE | 2020-05-20 14:14 | ED_ITS ---
HPI - Extremity Injury (Lower) <CARMENZA Gee - Last Filed: 05/20/20 17:01> General Chief Complaint: Extremity Injury, Lower Stated Complaint: right foot constant ache x1 day Time Seen by Provider: 05/20/20 13:12 Source: patient Mode of arrival: Wheelchair Limitations: no limitations History of Present Illness HPI Narrative: This is a 29-year-old male, smoker, who recently had right knee pain presents to ED with chief complain of right dorsal aspect of mid foot pain and swelling since he woke up this morning. He reports pain increases with movements and bearing weight. Since patient had right knee pain he has been using a cane and bearing his weight mostly on his right heel for ambulation. However, he had a fence will ran over affected foot last night but did not feel much pain at that time. Patient reports knee pain is improving at this time. Denies history of fever, chills, nausea, vomiting, redness, warmth, history of gout. Related Data Previous Rx's Medication Instructions Recorded docusate sodium 100 mg PO BID #60 cap 05/29/19 oxycodone 5 mg PO Q4H PRN #30 tab 05/29/19 Allergies Allergy/AdvReac Type Severity Reaction Status Date / Time No Known Drug Allergies Allergy Verified 05/11/20 18:29 Review of Systems <CARMENZA Gee - Last Filed: 05/20/20 17:01> Review of Systems Narrative: General: Denies fever, chills, fatigue, malaise, sweats. Respiratory: Denies dyspnea, cough, wheezing, hemoptysis, sputum. Cardiovascular: Denies chest pain, palpitations, orthopnea, edema. Gastrointestinal: Denies nausea, vomiting, abdominal pain, diarrhea, constipation, melena. : Denies dysuria, frequency, incontinence, hematuria, urinary retention. Musculoskeletal: See HPI Skin: Denies rash, skin lesions, or other. Patient History <CARMENZA Gee - Last Filed: 05/20/20 17:01> Medical History Asthma Breathing-related sleep disorder Chronic insomnia Constipation Diverticulitis Elevated cholesterol GERD (gastroesophageal reflux disease) History of PFTs (~08/2017) Left shoulder pain Surgical History No history of previous surgery Social History household members: family and friend(s) occupational status: employed Smoking Status: Current every day smoker alcohol intake: current Smoking Status: Current every day smoker alcohol intake frequency: a few times a week Alcohol type: beer and hard liquor Substance Use Type: marijuana Exam <CARMENZA Gee - Last Filed: 05/20/20 17:01> Narrative Exam Narrative: General appearance: Obese male, in no acute distress. Head: normocephalic, atraumatic, no scalp lesions, non-tender. ENT: Hearing grossly intact. Airway patent. Neck/Thyroid: neck supple, full range of motion, no visible masses or meningeal signs. No JVD, non-tender without lymphadenopathy. Skin: no suspicious rashes, lesions over visible areas. Warm and dry and appropriate color for ethnicity. Heart: no clubbing, no cyanosis, no edema. Lungs: Breathing even and unlabored. No stridor. No accessory muscles used. Able to speak in full sentences. Chest: normal shape and expansion. Abdomen: non-obese, non-distended. Neurologic: alert and oriented. 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 Psych: good eye contact, normal affect. Initial Vital Signs Initial Vital Signs: Vital Signs Temperature 99.0 F 05/20/20 13:11 Pulse Rate 96 H 05/20/20 13:11 Respiratory Rate 20 05/20/20 13:11 Blood Pressure 147/95 H 05/20/20 13:11 Pulse Oximetry 99 05/20/20 13:11 Extrem Right lower extremity: foot Details: normal capillary refill, tenderness Location: of the dorsal foot (mid foot), toes with normal ROM, edema Location: of the dorsal foot Location: laterally, vascular exam Details: dorsalis pedis pulse present and motor-sensory exam; no unusual warmth, no abrasion, no laceration, no ecchymosis and no crepitus <Jose Ramon Albert DO - Last Filed: 05/20/20 18:08> Initial Vital Signs Initial Vital Signs: Vital Signs Temperature 99.0 F 05/20/20 13:11 Pulse Rate 96 H 05/20/20 13:11 Respiratory Rate 20 05/20/20 13:11 Blood Pressure 147/95 H 05/20/20 13:11 Pulse Oximetry 99 05/20/20 13:11 Procedures <CARMENZA Gee - Last Filed: 05/20/20 17:01> Orthopedic Splinting/Casting Injury #1: Side: right Lower Extremity Injury Location: foot Lower Extremity Immobilizer: Esau wrap Post splinting neuro exam: intact Post splinting vascular exam: intact Placed by: Nursing Scores <CARMENZA Gee - Last Filed: 05/20/20 17:01> GCS [place] coma scale eye opening: Spontaneous Yani coma scale verbal response: Orientated [place] coma scale motor response: Obey commands Yani coma scale total score: 15 Course <CARMENZA Gee - Last Filed: 05/20/20 17:01> Orders Ordered: ED Orders 05/20/20 13:14 XR foot RT min 3V Stat Discontinued Medications Acetaminophen (Acetaminophen 325 Mg Tablet) 650 mg PO NOW ONE Stop: 05/20/20 14:15 Last Admin: 05/20/20 14:32 Dose: 650 mg Documented by: RICHARD Vital Signs Vital signs: Vital Signs - 8 hr 05/20/20 13:11 Temperature 99.0 F Pulse Rate 96 H Respiratory Rate 20 Blood Pressure 147/95 H Pulse Oximetry 99 <Jose Ramon Albert DO - Last Filed: 05/20/20 18:08> Orders Ordered: ED Orders 05/20/20 13:14 XR foot RT min 3V Stat Discontinued Medications Acetaminophen (Acetaminophen 325 Mg Tablet) 650 mg PO NOW ONE Stop: 05/20/20 14:15 Last Admin: 05/20/20 14:32 Dose: 650 mg Documented by: RICHARD Vital Signs Vital signs: Vital Signs - 8 hr 05/20/20 13:11 Temperature 99.0 F Pulse Rate 96 H Respiratory Rate 20 Blood Pressure 147/95 H Pulse Oximetry 99 MDM - Extremity Injury (Lower) <CARMENZA Gee - Last Filed: 05/20/20 17:01> Differential Diagnosis Differential diagnosis: Likely other (Foot sprain, foot fracture, gout, cellulitis, joint infection) Medical Records Attestation: I reviewed the patient's medical records. Imaging Data XR-Foot RT: Radiologist's Impression: [address] [id number] ReportSigned Patient: [place] [facility]#: [id number]: 1990Acct:[id number]/Sex: 29 / MDate of Service: 05/20/20Loc: EDAccession Number: [id number] Procedure: XR foot RT min 3V Ordering Provider: Jose Ramon Albert D.O. PROCEDURE: XR FOOT RT MIN 3V INDICATIONS: medial/instep pain, ran over with a fence wheel TECHNIQUE: 3 views of the foot were acquired. COMPARISON: None. FINDINGS: Bones: No fractures or dislocations. No suspicious bony lesions. Soft tissues: No tibiotalar joint effusion. Achilles tendon appears normal. IMPRESSION: No evidence acute bony abnormality of the right foot Dictated by: Philippe Gallegos M.D. on 05/20/2020 at 13:44 Approved by: Philippe Gallegos M.D. on 05/20/2020 at 13:45 MDM Narrative Medical decision making narrative: This is a 29 year male who presents to ED with right dorsal midfoot pain and swelling since he woke up this morning. Pat ient reports mild injury to his affected foot it last night and also he has been walking on his heels compensate with recent right knee pain. Patient has intact sensation and pulse distally. X-ray test does not show acute findings. Patient advised to use RICE therapy as needed and to take [id number] Tylenol and or Motrin as needed for discomfort and use Esau wrap on affected foot for sup port. Return precautions were discussed with patient and he verbalized understanding and agreement with treatment plan. Discharge Plan Departure Patient Disposition: Home Clinical Impression: Foot pain, right Instructions: DI for Foot Pain Activity Restrictions/Additional Instructions: You have been diagnosed with [right dorsal aspect of midfoot pain. According to x-ray test, No indications of fracture, dislocations at this time.]. What to do: *Take your medications as directed. Please take [id number] Tylenol and or Motrin as needed for discomfort and follow bottle instruction. Use Esau wrap for support and discomfort. You can elevate affected foot during rest and use cool packs on affected foot. *Follow up with your primary care provider in 2-3 days, call for an appointment. Let them know you were seen in the ED and that we asked you to be seen in follow up. *Return to ED if you have any new, worsening, or concerning symptoms, such as [fever, redness, worsening swelling, increasing pain, tingling/numbness/pale foot, or any acute concerns]. Prescriptions: No Action oxycodone 5 mg tablet 5 mg PO Q4H PRN (Reason: pain) Qty: 30 RF: 0 docusate sodium 100 mg capsule 100 mg PO BID Qty: 60 RF: 0 Referrals: Brenna Murphy [Other] <Jose Ramon Albert, DO - Last Filed: 05/20/20 18:08> Cosign ED Attending Cosignature Attestation: Dr Albert Co-Sign Statement: I was available for consultation during this patient's emergency department visit. This chart is signed by myself for administrative purposes only. I did not have direct contact with this patient during this visit. They were seen independently by the APC.
[2020-05-20] MEDS: ACETAMINOPHEN 325 MG TABLET 650 MG PO (14:32)
== END 2020-05-20 14:39 | disposition home or self-care (01) ==
PROVIDERS: Emergency Provider Nurse Practitioner Family
DX: M79.671 Pain in right foot (principal); E66.9 Obesity, unspecified; Z68.41 Body mass index [BMI] 40.0-44.9, adult
CPT/HCPCS: 73630; 99283

== ENCOUNTER → 2020-05-26 11:56 | Outpatient (CLI) | payer OTHER, MEDICAID, SELFPAY ==
--- NOTE | 2020-05-26 | DI.RAD.S_ITS ---
PROCEDURE: XR SHOULDER LT MIN 2V INDICATIONS: PAIN TECHNIQUE: 3 views of the shoulder were acquired. COMPARISON: None. FINDINGS: Bones: No fractures or dislocations. No suspicious bony lesions. Visualized ribs appear intact. Soft tissues: No suspicious soft tissue calcifications. IMPRESSION: No fracture or dislocation. If clinical symptoms persist or clinical suspicion for internal derangement is high, MRI is suggested for further evaluation. Dictated by: Noni Ba M.D. on 05/26/2020 at 17:10 Approved by: Noni Ba M.D. on 05/26/2020 at 17:11
--- NOTE | 2020-05-26 | DI.RAD.S_ITS ---
PROCEDURE: XR KNEE RT 3V INDICATIONS: PAIN TECHNIQUE: 3 views of the knee were acquired. COMPARISON: None. FINDINGS: Bones: No fractures or dislocations. No suspicious bony lesions. Mild osteoarthritis. Soft tissues: No joint effusion. No suspicious soft tissue calcifications. IMPRESSION: No acute osseous abnormalities. Mild osteoarthritis. Dictated by: Noni Ba M.D. on 05/26/2020 at 14:06 Approved by: Noni Ba M.D. on 05/26/2020 at 14:07
== END ==
PROVIDERS: PCP Family Medicine; Referring Provider Family Medicine; Visit Provider Family Medicine
DX: M25.561 Pain in right knee (principal); M17.11 Unilateral primary osteoarthritis, right knee; M25.512 Pain in left shoulder
CPT/HCPCS: 73030; 73562

== ENCOUNTER → 2020-05-29 10:06 | Outpatient (CLI) | payer OTHER, MEDICAID, SELFPAY ==
[2020-05-29 12:16] LABS: Add Manual Diff / Slide Review NO; Basophils Absolute Auto 0 /uL (0-100); Basophils Percent Auto 0.5 % (0-2); Eosinophils Absolute Auto 100 /uL (0-450); Eosinophils Percent Auto 1.8 % (2-4); Hematocrit 45.9 % (41-53); Hemoglobin 15.3 g/dL (13.5-17.5); Lymphocytes Absolute Auto 2100 /uL (1100-4500); Lymphocytes Percent Auto 28.6 % (25-40); Mean Corpuscular HGB Conc 33.3 % (30-36); Mean Corpuscular Hemoglobin 30.4 PG (26-34); Mean Corpuscular Volume 91.1 fL (80-100); Monocytes Absolute Auto 400 /uL (0-900); Neutrophils Absolute Auto 4800 /uL (1500-7000); Neutrophils Percent Auto 64.1 % (50-75); Platelet Count 240 X10^3/uL (150-400); Red Blood Cell Count 5.04 X10^6/uL (4.5-5.9); Red Cell Distribution Width 12.4 % (11.6-14.8); White Blood Cell Count 7.5 X10^3/uL (4.5-11.0)
[2020-05-29 12:19] LABS: Hemoglobin A1C% w Est Avg Glu 5.7 % (4.0-6.0)
[2020-05-29 12:21] LABS: Alanine Aminotransferase 64 IU/L (<50); Albumin 4.4 g/dL (3.5-5.0); Albumin Globulin Ratio 1.2 (1.0-2.8); Alkaline Phosphatase 72 U/L (38-126); Aspartate Aminotransferase 49 IU/L (17-59); BUN Creatinine Ratio 19.4 (6-22); Bilirubin Total 0.5 mg/dL (0.2-1.3); Blood Urea Nitrogen 13 mg/dL (9-20); Calcium 9.4 mg/dL (8.4-10.2); Carbon Dioxide 29 mmol/L (22-32); Chloride 104 mmol/L (98-107); Cholesterol 180 mg/dL (140-199); Estimated Glomerular Filt Rate > 60.0 mL/min (>60); Globulin 3.7 g/dL (1.7-4.1); Glucose 96 mg/dL (70-100); HDL Cholesterol 47 mg/dL (40-60); HEMOLYSIS 18 (0-50); LDL Cholesterol Calculated 83 mg/dL (<100); Potassium 4.2 mmol/L (3.4-5.1); Sodium 138 mmol/L (137-145); Total Protein 8.1 g/dL (6.3-8.2); Triglycerides 250 mg/dL (35-150)
[2020-05-29 14:07] LABS: TSH w/ Reflex to FT4 3.22 uIU/mL (0.47-4.68)
== END ==
PROVIDERS: PCP Family Medicine; Referring Provider Family Medicine; Visit Provider Family Medicine
DX: E66.01 Morbid (severe) obesity due to excess calories (principal); M25.512 Pain in left shoulder; M25.561 Pain in right knee; Z68.41 Body mass index [BMI] 40.0-44.9, adult
CPT/HCPCS: 36415; 80053; 80061; 83036; 84443; 85025

== ENCOUNTER 2020-08-19 10:30 | Outpatient (RCR) | payer OTHER, MEDICAID, SELFPAY ==
[2020-06-17 09:45] VITALS: BP 160/98
--- NOTE | 2020-06-17 17:38 | PT.OIE ---
Current Diagnoses Pain in left shoulder (06/17/20) Abnormal posture (06/17/20) Past Medical History (Last Updated 06/01/20 @ 14:30 by Marguerite North) Asthma (~1991) Breathing-related sleep disorder Chronic insomnia Constipation Diverticulitis Elevated cholesterol GERD (gastroesophageal reflux disease) Hearing loss History of PFTs (~08/2017) Left shoulder pain Left shoulder pain Right knee pain Short sightedness Past Surgical History (Last Updated 06/01/20 @ 14:30 by Marguerite North) Anesthesia History of cholecystectomy (~05/28/19) No history of previous surgery Visit Care Team Role Provider Type Alfred Richey DO Attending Provider Physician Primary Care Provider Referring Provider Specialty: [facility] Address: [address] [place] [address], [facility] Email: [email or web address] [facility] Initial Evaluation PT-OP-A Visit Information Start: 06/17/20 08:50 Freq: Status: Active Protocol: Document 06/17/20 09:45 AW (Rec: 06/17/20 08:54 AW [email or web address]) Out-Patient Physical Therapy Visit Information Visit Information Visit Type Initial Evaluation Visit Start Time 09:00 Visit Stop Time 09:45 Total Visit Minutes 45 Visit Number 1 Number of MEDICAL BILLING AND CODING SPECIALIST Visits 0 Evaluation Information Evaluation Date 06/17/20 PT-OP-B Current Condition Start: 06/17/20 08:50 Freq: Status: Active Protocol: Document 06/17/20 09:45 AW (Rec: 06/17/20 08:54 AW [email or web address]) Current Condition History of Current Condition Onset Date 45 days Current Complaints left shoulder pain History of Current Condition One and a half months ago, pt was lifting 40 pound feed bags and noticed achy left shoulder to got worse even with rest. Pt reports pain is worst with overhead movement, external rotation, and lifting . Prior Treatments and Tests x-ray 05/26/20 - no fracture or bony abnormality Treatment Goals Patient/Caregiver Goals Protect the shoulder and learn to lift without causing any more pain. 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 Patient Questionnaires Quick Dash- Upper Extremity Quick Dash UE Score 9.1 Quick Dash UE Impairment 1 to 19% Impaired (Score 1-19) OP-PT Pain Assessment Pain Assessment Grid Paper Pain Assessment Grid Completed Yes Location L shoulder Pain Location Details L shoulder Intensity 2 Scale Used Numeric (0 - 10) Frequency No Pattern Pain Aggravating Factors Lifting Comments Pain Comments Generally no more than 2/10 but with occasional spikes PT-OP-F Manual Assessment Start: 06/17/20 08:50 Freq: Status: Active Protocol: Document 06/17/20 09:45 AW (Rec: 06/17/20 17:17 AW [email or web address]) Manual Assessments Soft Tissue Assessment Soft Tissue Mobility Assessment Tight upper traps and pectoral mm bilaterally Joint Mobility Assessment Joint Mobility Assessment Slight restriction in left GH inferior and posterior glide PT-OP-H Neuro Start: 06/17/20 08:50 Freq: Status: Active Protocol: Document 06/17/20 09:45 AW (Rec: 06/17/20 17:17 AW [email or web address]) Sensation Evaluation Gross Sensation Gross Sensation WNL Deep Tendon Reflex & Clonus Assessment Deep Tendon Reflex Bilateral Bicep Deep Tendon Reflex 1+ Diminished Vital Signs Blood Pressure Sitting Blood Pressure (90/60-120/80 mmHg) 160/98 H Blood Pressure Source Manual Cuff,Right Upper Extremity PT-OP-J Posture/Palpation/Skin Start: 06/17/20 08:50 Freq: Status: Active Protocol: Document 06/17/20 09:45 AW (Rec: 06/17/20 17:17 AW [email or web address]) Posture Evaluation Position Sitting Evaluation View Lateral Head/C-Spine Posture Extended,Forward Head T-Spine Posture Increased Kyphosis Shoulder Posture (L) Rounded,(R) Rounded,(L) Forward,(R) Forward Scapula Posture (L) Protracted,(R) Protracted Arm Posture (L) Internally Rotated,(R) Internally Rotated PT-OP-K Range of Motion Start: 06/17/20 08:50 Freq: Status: Active Protocol: Document 06/17/20 09:45 AW (Rec: 06/17/20 17:17 AW [email or web address]) Cervical Spine Range of Motion Cervical Spine Active Testing Position Sitting Comments WNL Shoulder Goniometric Range of Motion Shoulder Left Active Testing Position Sitting Flexion 175 Extension 45 Abduction 170 External Rotation at 0 degrees Abduction 66 Internal Rotation Behind Back (text) T7 Comments flexion and abduction reproduce pain; IR feels tight Right Active Testing Position Sitting Flexion 175 Extension 46 Abduction 175 External Rotation at 0 degrees Abduction 63 Internal Rotation Behind Back (text) T6 Shoulder ROM Limitations Shoulder ROM Limitations Soft Tissue Tightness,Pain Elbow/Forearm Range of Motion Elbow/Forearm Left Active Elbow/Forearm ROM WFL Yes Comments WNL bilaterally PT-OP-L Special Tests Start: 06/17/20 08:50 Freq: Status: Active Protocol: Document 06/17/20 09:45 AW (Rec: 06/17/20 17:37 AW [email or web address]) Special Tests Cervical Spine Special Tests Spurling's Test Test Results negative bilaterally Shoulder Special Tests Mcnally Micheal Impingement Test Results slight positive left Drop Arm Rotator Cuff Test Results negative PT-OP-M Strength Start: 06/17/20 08:50 Freq: Status: Active Protocol: Document 06/17/20 09:45 AW (Rec: 06/17/20 17:37 AW [email or web address]) Cervical Spine Strength Cervical Spine Manual Muscle Testing Testing Position Sitting Comments WNL Scapula Strength Scapula Manual Muscle Testing Right Elevation (C4) 5 Normal Adduction 4- Good- Abduction 4+ Good+ Depression 4- Good- Left Elevation (C4) 5 Normal Adduction 4- Good- Abduction 4+ Good+ Depression 4- Good- Shoulder Strength Shoulder Manual Muscle Testing Right Flexion 5 Normal Extension 5 Normal Abduction (C5) 5 Normal External Rotation 5 Normal Internal Rotation 5 Normal Left Flexion 4+ Good+ Extension 5 Normal Abduction (C5) 4+ Good+ External Rotation 4+ Good+ Internal Rotation 5 Normal Elbow/Forearm Strength Elbow and Forearm Manual Muscle Testing Left Flexion (C6) 5 Normal Extension (C7) 5 Normal PT-OP-Q Treatments Start: 06/17/20 08:50 Freq: Status: Active Protocol: Document 06/17/20 09:45 AW (Rec: 06/17/20 17:37 AW [email or web address]) Therapeutic Exercises Sitting Exercises cervical retraction Sitting Exercise Name cervical retraction Reps/Minutes 5 SH x 10 scapular retraction Sitting Exercise Name scapular retraction Side bilateral Reps/Minutes 5SH x15 Comments cued avoidance of shoulder elevation Self-Care/Home Management Treatment Education Patient Education Posture Other Education Provided education on shoulder mechanics and relationship with neck. PT-OP-T Assessment and Plan Start: 06/17/20 08:50 Freq: Status: Active Protocol: Document 06/17/20 09:45 AW (Rec: 06/17/20 17:37 AW [email or web address]) Physical Therapy Assessment Rehab Potential Rehabilitation Potential Excellent Evaluation Complexity Number of Personal Factors/Comorbidities 0 Number of Body Systems Impaired 1-2 Clinical Presentation at Evaluation Stable Impairments Impairments Functional Activities,Pain, Posture,ROM,Soft Tissue Mobility,Strength Goals Four Impairment Lacks HEP Short Term Goal (STG) Pt will be compliant with HEP for support of therapy services provided in clinic. STG Duration 07/29/20 Care Home Goal (LTG) Pt to be independent with maintenance HEP. LTG Duration 09/14/20 Three Impairment posture Care Home Goal (LTG) Pt will demonstrate improved awareness of postural implications for shoulder pain with uncued self-correction during functional activity such as lifting. LTG Duration 09/14/20 Two Impairment Strength Short Term Goal (STG) Pt will demonstrate equal shoulder strength in all planes bilaterally. STG Duration 07/29/20 One Impairment Pain with lifting Care Home Goal (LTG) Pt will tolerate lifting 40# feed bags to overhead height without increase in pain to facilitate return to full work duties. 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 His exam is consistent with impingement syndrome which is likely precipitated and perpetuated by habitual postures such as extreme scapular abduction, poor thoracic extension, and forward head. He would benefit from skilled physical therapy to address these impairments and for functional task training for return to full work duties and recreational activities. Physical Therapy Plan Frequency and Duration Frequency of Treatment 1-2 x/week Duration of Treatment 3 months Plan of Care Start Date 06/17/20 Plan of Care End Date 09/14/20 Therapeutic Interventions Therapeutic Interventions Home Exercise Program,Joint Mobilizations,Manual Therapy, Neuromuscular Re-education, Patient/Caregiver Education, Self-Care/Home Management,Soft Tissue Mobilization,Taping, Therapeutic Activities, Therapeutic Exercises Modalities Cold Pack/Ice Massage,Hot Packs Next Visit Focus/Plan Next Note Type Treatment Note Next Visit Plan STM and postural education/ ther ex
--- NOTE | 2020-06-17 17:38 | PT.OPPOC ---
Physical, Occupational & Speech Therapy At [facility] Current Diagnoses Pain in left shoulder (06/17/20) Abnormal posture (06/17/20) Visit Care Team Role Provider Type Alfred Richey DO Attending Provider Physician Primary Care Provider Referring Provider Specialty: [facility] Address: [address] [place] [address], [facility] Email: [email or web address] Plan Of Care PT-OP-T Assessment and Plan Start: 06/17/20 08:50 Freq: Status: Active Protocol: Document 06/17/20 09:45 AW (Rec: 06/17/20 17:37 AW [email or web address]) Physical Therapy Assessment Rehab Potential Rehabilitation Potential Excellent Evaluation Complexity Number of Personal Factors/Comorbidities 0 Number of Body Systems Impaired 1-2 Clinical Presentation at Evaluation Stable Impairments Impairments Functional Activities,Pain, Posture,ROM,Soft Tissue Mobility,Strength Goals Four Impairment Lacks HEP Short Term Goal (STG) Pt will be compliant with HEP for support of therapy services provided in clinic. STG Duration 07/29/20 Senior Living Goal (LTG) Pt to be independent with maintenance HEP. LTG Duration 09/14/20 Three Impairment posture Paper Final Inspector Goal (LTG) Pt will demonstrate improved awareness of postural implications for shoulder pain with uncued self-correction during functional activity such as lifting. LTG Duration 09/14/20 Two Impairment Strength Short Term Goal (STG) Pt will demonstrate equal shoulder strength in all planes bilaterally. STG Duration 07/29/20 One Impairment Pain with lifting Senior Living Goal (LTG) Pt will tolerate lifting 40# feed bags to overhead height without increase in pain to facilitate return to full work duties. 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 His exam is consistent with impingement syndrome which is likely precipitated and perpetuated by habitual postures such as extreme scapular abduction, poor thoracic extension, and forward head. He would benefit from skilled physical therapy to address these impairments and for functional task training for return to full work duties and recreational activities. Physical Therapy Plan Frequency and Duration Frequency of Treatment 1-2 x/week Duration of Treatment 3 months Plan of Care Start Date 06/17/20 Plan of Care End Date 09/14/20 Therapeutic Interventions Therapeutic Interventions Home Exercise Program,Joint Mobilizations,Manual Therapy, Neuromuscular Re-education, Patient/Caregiver Education, Self-Care/Home Management,Soft Tissue Mobilization,Taping, Therapeutic Activities, Therapeutic Exercises Modalities Cold Pack/Ice Massage,Hot Packs Next Visit Focus/Plan Next Note Type Treatment Note Next Visit Plan STM and postural education/ ther ex Plan of Care Dates Plan of Care Start Date 06/17/20 Plan of Care End Date 09/14/20 Electronically Signed by: Snow Martinez, PT 06/17/20 1944 Please Sign and Return: I have reviewed this Plan of Care and certify that the skilled therapy services above are required to meet the patient?s needs. Physician Signature Date Printed Name and Credentials Clinical Instructor Signature Printed Name and Credentials
--- NOTE | 2020-07-01 17:15 | PT.OTN ---
Current Diagnoses Pain in left shoulder (07/01/20) Abnormal posture (07/01/20) Physical Therapy Treatment Note PT-OP-A Visit Information Start: 06/17/20 08:50 Freq: Status: Active Protocol: Document 07/01/20 14:39 AW (Rec: 07/01/20 17:15 AW [email or web address]) Out-Patient Physical Therapy Visit Information Visit Information Visit Type Treatment Note Visit Start Time 14:30 Visit Stop Time 15:15 Total Visit Minutes 45 Visit Number 2 Number of PANEL MONITOR Visits 0 Evaluation Information Evaluation Date 06/17/20 PT-OP-B Current Condition Start: 06/17/20 08:50 Freq: Status: Active Protocol: Document 06/17/20 09:45 AW (Rec: 06/17/20 08:54 AW [email or web address]) Current Condition History of Current Condition Onset Date 45 days Current Complaints left shoulder pain History of Current Condition One and a half months ago, pt was lifting 40 pound feed bags and noticed achy left shoulder to got worse even with rest. Pt reports pain is worst with overhead movement, external rotation, and lifting . Prior Treatments and Tests x-ray 05/26/20 - no fracture or bony abnormality Treatment Goals Patient/Caregiver Goals Protect the shoulder and learn to lift without causing any more pain. 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 Feels his symptoms have been relatively stable - not better, not worse. He has been working on his HEP. PT-OP-F Manual Assessment Start: 06/17/20 08:50 Freq: Status: Active Protocol: Document 06/17/20 09:45 AW (Rec: 06/17/20 17:17 AW [email or web address]) Manual Assessments Soft Tissue Assessment Soft Tissue Mobility Assessment Tight upper traps and pectoral mm bilaterally Joint Mobility Assessment Joint Mobility Assessment Slight restriction in left GH inferior and posterior glide PT-OP-H Neuro Start: 06/17/20 08:50 Freq: Status: Active Protocol: Document 06/17/20 09:45 AW (Rec: 06/17/20 17:17 AW [email or web address]) Sensation Evaluation Gross Sensation Gross Sensation WNL Deep Tendon Reflex & Clonus Assessment Deep Tendon Reflex Bilateral Bicep Deep Tendon Reflex 1+ Diminished Vital Signs Blood Pressure Sitting Blood Pressure (90/60-120/80 mmHg) 160/98 H Blood Pressure Source Manual Cuff,Right Upper Extremity PT-OP-J Posture/Palpation/Skin Start: 06/17/20 08:50 Freq: Status: Active Protocol: Document 06/17/20 09:45 AW (Rec: 06/17/20 17:17 AW [email or web address]) Posture Evaluation Position Sitting Evaluation View Lateral Head/C-Spine Posture Extended,Forward Head T-Spine Posture Increased Kyphosis Shoulder Posture (L) Rounded,(R) Rounded,(L) Forward,(R) Forward Scapula Posture (L) Protracted,(R) Protracted Arm Posture (L) Internally Rotated,(R) Internally Rotated PT-OP-K Range of Motion Start: 06/17/20 08:50 Freq: Status: Active Protocol: Document 06/17/20 09:45 AW (Rec: 06/17/20 17:17 AW [email or web address]) Cervical Spine Range of Motion Cervical Spine Active Testing Position Sitting Comments WNL Shoulder Goniometric Range of Motion Shoulder Left Active Testing Position Sitting Flexion 175 Extension 45 Abduction 170 External Rotation at 0 degrees Abduction 66 Internal Rotation Behind Back (text) T7 Comments flexion and abduction reproduce pain; IR feels tight Right Active Testing Position Sitting Flexion 175 Extension 46 Abduction 175 External Rotation at 0 degrees Abduction 63 Internal Rotation Behind Back (text) T6 Shoulder ROM Limitations Shoulder ROM Limitations Soft Tissue Tightness,Pain Elbow/Forearm Range of Motion Elbow/Forearm Left Active Elbow/Forearm ROM WFL Yes Comments WNL bilaterally PT-OP-L Special Tests Start: 06/17/20 08:50 Freq: Status: Active Protocol: Document 06/17/20 09:45 AW (Rec: 06/17/20 17:37 AW [email or web address]) Special Tests Cervical Spine Special Tests Spurling's Test Test Results negative bilaterally Shoulder Special Tests Mcnally Micheal Impingement Test Results slight positive left Drop Arm Rotator Cuff Test Results negative PT-OP-M Strength Start: 06/17/20 08:50 Freq: Status: Active Protocol: Document 06/17/20 09:45 AW (Rec: 06/17/20 17:37 AW [email or web address]) Cervical Spine Strength Cervical Spine Manual Muscle Testing Testing Position Sitting Comments WNL Scapula Strength Scapula Manual Muscle Testing Right Elevation (C4) 5 Normal Adduction 4- Good- Abduction 4+ Good+ Depression 4- Good- Left Elevation (C4) 5 Normal Adduction 4- Good- Abduction 4+ Good+ Depression 4- Good- Shoulder Strength Shoulder Manual Muscle Testing Right Flexion 5 Normal Extension 5 Normal Abduction (C5) 5 Normal External Rotation 5 Normal Internal Rotation 5 Normal Left Flexion 4+ Good+ Extension 5 Normal Abduction (C5) 4+ Good+ External Rotation 4+ Good+ Internal Rotation 5 Normal Elbow/Forearm Strength Elbow and Forearm Manual Muscle Testing Left Flexion (C6) 5 Normal Extension (C7) 5 Normal PT-OP-Q Treatments Start: 06/17/20 08:50 Freq: Status: Active Protocol: Document 07/01/20 14:39 AW (Rec: 07/01/20 15:18 AW [id number]) Therapeutic Exercises Supine Exercises rhythmic stabilization Supine Exercise Name rhythmic stabilization scap protraction Supine Exercise Name scap protraction Side right Resistance manual Reps/Minutes x15 supine posture press Supine Exercise Name supine posture press Side bilateral Reps/Minutes x10 Sidelying Exercises abduction Sidelying Exercise Name abduction Side left Resistance AROM Reps/Minutes 90 degrees abduction ER Sidelying Exercise Name ER Side left Resistance none Reps/Minutes x15 Sitting Exercises cervical retraction Sitting Exercise Name cervical retraction Reps/Minutes 5 SH x 10 scapular retraction Sitting Exercise Name scapular retraction Side bilateral Reps/Minutes 5SH x15 Comments cued avoidance of shoulder elevation Standing Exercises resisted rows Standing Exercise Name resisted rows Side bilateral Resistance level 2 Equipment Used TB Reps/Minutes focus on scap retraction GH extension Standing Exercise Name GH extension Side bilateral Resistance level 2 Equipment Used TB Reps/Minutes x12 Comments cued scap retraction reactive isometric walkouts ER IR Standing Exercise Name reactive isometric walkouts ER IR Side left Resistance level 1 Equipment Used TB Reps/Minutes 4 laps each dicrection Comments towel roll for elbow to ribcage ER Standing Exercise Name ER Side left Resistance level 1 Equipment Used TB Reps/Minutes x12 Comments towel roll for elbow to ribcage wall posture Equipment Used 2 min Reps/Minutes max cues for cervical retraction Manual Therapy Treatment Soft Tissue Mobilization UT, lev scap, cervical paraspinals Mobilization Type Myofascial Release,Sustained Pressure Intensity/Depth Moderate Body Position Hooklying Comments with active rotation, contract /relax with improved pain free rotation PT-OP-T Assessment and Plan Start: 06/17/20 08:50 Freq: Status: Active Protocol: Document 07/01/20 14:39 AW (Rec: 07/01/20 17:15 AW [email or web address]) Physical Therapy Assessment Impairments Impairments Functional Activities,Pain, Posture,ROM,Soft Tissue Mobility,Strength Goals Four Impairment Lacks HEP Short Term Goal (STG) Pt will be compliant with HEP for support of therapy services provided in clinic. STG Duration 07/29/20 Nursing Home Goal (LTG) Pt to be independent with maintenance HEP. LTG Duration 09/14/20 Three Impairment posture Nursing Home Goal (LTG) Pt will demonstrate improved awareness of postural implications for shoulder pain with uncued self-correction during functional activity such as lifting. LTG Duration 09/14/20 Two Impairment Strength Short Term Goal (STG) Pt will demonstrate equal shoulder strength in all planes bilaterally. STG Duration 07/29/20 One Impairment Pain with lifting Nursing Home Goal (LTG) Pt will tolerate lifting 40# feed bags to overhead height without increase in pain to facilitate return to full work duties. LTG Duration 09/14/20 Assessment Summary Assessment Treatment focused on STM, postural awarenss, and gentle strengthening for rotator cuff and general shoulder stability. All tolerated well without complaint of increased pain. Physical Therapy Plan Frequency and Duration Frequency of Treatment 1-2 x/week Duration of Treatment 3 months Plan of Care Start Date 06/17/20 Plan of Care End Date 09/14/20 Therapeutic Interventions Therapeutic Interventions Home Exercise Program,Joint Mobilizations,Manual Therapy, Neuromuscular Re-education, Patient/Caregiver Education, Self-Care/Home Management,Soft Tissue Mobilization,Taping, Therapeutic Activities, Therapeutic Exercises Modalities Cold Pack/Ice Massage,Hot Packs Next Visit Focus/Plan Next Note Type Treatment Note Next Visit Plan STM and postural education/ ther ex
--- NOTE | 2020-07-08 12:21 | PT.OTN ---
Current Diagnoses Pain in left shoulder (07/08/20) Abnormal posture (07/08/20) Physical Therapy Treatment Note PT-OP-A Visit Information Start: 06/17/20 08:50 Freq: Status: Active Protocol: Document 07/08/20 10:34 AW (Rec: 07/08/20 12:21 AW [email or web address]) Out-Patient Physical Therapy Visit Information Visit Information Visit Type Treatment Note Visit Start Time 10:30 Visit Stop Time 11:15 Total Visit Minutes 45 Visit Number 3 Number of MACADAM RAKER Visits 0 Evaluation Information Evaluation Date 06/17/20 PT-OP-B Current Condition Start: 06/17/20 08:50 Freq: Status: Active Protocol: Document 06/17/20 09:45 AW (Rec: 06/17/20 08:54 AW [email or web address]) Current Condition History of Current Condition Onset Date 45 days Current Complaints left shoulder pain History of Current Condition One and a half months ago, pt was lifting 40 pound feed bags and noticed achy left shoulder to got worse even with rest. Pt reports pain is worst with overhead movement, external rotation, and lifting . Prior Treatments and Tests x-ray 05/26/20 - no fracture or bony abnormality Treatment Goals Patient/Caregiver Goals Protect the shoulder and learn to lift without causing any more pain. 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 Current Functional Impairments (Reported) Functional Limitations- Work/School Pain with lifting feed bags in [employer] Personal Factors Other Personal Factors That May Effect - obesity Therapy/Recovery + generally positive attitude toward movement PT-OP-C Subjective Start: 06/17/20 08:50 Freq: Status: Active Protocol: Document 07/08/20 10:34 AW (Rec: 07/08/20 12:21 AW [email or web address]) OP-PT Subjective Patient Comments Patient Comments I overdid it with lifting at work last Monday and my shoulder has been really bothering me. PT-OP-F Manual Assessment Start: 06/17/20 08:50 Freq: Status: Active Protocol: Document 06/17/20 09:45 AW (Rec: 06/17/20 17:17 AW [email or web address]) Manual Assessments Soft Tissue Assessment Soft Tissue Mobility Assessment Tight upper traps and pectoral mm bilaterally Joint Mobility Assessment Joint Mobility Assessment Slight restriction in left GH inferior and posterior glide PT-OP-H Neuro Start: 06/17/20 08:50 Freq: Status: Active Protocol: Document 06/17/20 09:45 AW (Rec: 06/17/20 17:17 AW [email or web address]) Sensation Evaluation Gross Sensation Gross Sensation WNL Deep Tendon Reflex & Clonus Assessment Deep Tendon Reflex Bilateral Bicep Deep Tendon Reflex 1+ Diminished Vital Signs Blood Pressure Sitting Blood Pressure (90/60-120/80 mmHg) 160/98 H Blood Pressure Source Manual Cuff,Right Upper Extremity PT-OP-J Posture/Palpation/Skin Start: 06/17/20 08:50 Freq: Status: Active Protocol: Document 06/17/20 09:45 AW (Rec: 06/17/20 17:17 AW [email or web address]) Posture Evaluation Position Sitting Evaluation View Lateral Head/C-Spine Posture Extended,Forward Head T-Spine Posture Increased Kyphosis Shoulder Posture (L) Rounded,(R) Rounded,(L) Forward,(R) Forward Scapula Posture (L) Protracted,(R) Protracted Arm Posture (L) Internally Rotated,(R) Internally Rotated PT-OP-K Range of Motion Start: 06/17/20 08:50 Freq: Status: Active Protocol: Document 06/17/20 09:45 AW (Rec: 06/17/20 17:17 AW [email or web address]) Cervical Spine Range of Motion Cervical Spine Active Testing Position Sitting Comments WNL Shoulder Goniometric Range of Motion Shoulder Left Active Testing Position Sitting Flexion 175 Extension 45 Abduction 170 External Rotation at 0 degrees Abduction 66 Internal Rotation Behind Back (text) T7 Comments flexion and abduction reproduce pain; IR feels tight Right Active Testing Position Sitting Flexion 175 Extension 46 Abduction 175 External Rotation at 0 degrees Abduction 63 Internal Rotation Behind Back (text) T6 Shoulder ROM Limitations Shoulder ROM Limitations Soft Tissue Tightness,Pain Elbow/Forearm Range of Motion Elbow/Forearm Left Active Elbow/Forearm ROM WFL Yes Comments WNL bilaterally PT-OP-L Special Tests Start: 06/17/20 08:50 Freq: Status: Active Protocol: Document 06/17/20 09:45 AW (Rec: 06/17/20 17:37 AW [email or web address]) Special Tests Cervical Spine Special Tests Spurling's Test Test Results negative bilaterally Shoulder Special Tests Mcnally Micheal Impingement Test Results slight positive left Drop Arm Rotator Cuff Test Results negative PT-OP-M Strength Start: 06/17/20 08:50 Freq: Status: Active Protocol: Document 06/17/20 09:45 AW (Rec: 06/17/20 17:37 AW [email or web address]) Cervical Spine Strength Cervical Spine Manual Muscle Testing Testing Position Sitting Comments WNL Scapula Strength Scapula Manual Muscle Testing Right Elevation (C4) 5 Normal Adduction 4- Good- Abduction 4+ Good+ Depression 4- Good- Left Elevation (C4) 5 Normal Adduction 4- Good- Abduction 4+ Good+ Depression 4- Good- Shoulder Strength Shoulder Manual Muscle Testing Right Flexion 5 Normal Extension 5 Normal Abduction (C5) 5 Normal External Rotation 5 Normal Internal Rotation 5 Normal Left Flexion 4+ Good+ Extension 5 Normal Abduction (C5) 4+ Good+ External Rotation 4+ Good+ Internal Rotation 5 Normal Elbow/Forearm Strength Elbow and Forearm Manual Muscle Testing Left Flexion (C6) 5 Normal Extension (C7) 5 Normal PT-OP-Q Treatments Start: 06/17/20 08:50 Freq: Status: Active Protocol: Document 07/08/20 10:34 AW (Rec: 07/08/20 11:16 AW [id number]) Therapeutic Exercises Supine Exercises supine posture press Supine Exercise Name supine posture press Side bilateral Reps/Minutes x10 Sidelying Exercises abduction Sidelying Exercise Name abduction Side left Resistance AROM Reps/Minutes 120 degrees abduction ER Sidelying Exercise Name ER Side left Resistance none Reps/Minutes x15 Sitting Exercises cervical retraction Sitting Exercise Name cervical retraction Reps/Minutes 5 SH x 10 scapular retraction Sitting Exercise Name scapular retraction Side bilateral Reps/Minutes 5SH x15 Comments cued avoidance of shoulder elevation Standing Exercises isometric lat dorsi Standing Exercise Name isometric lat dorsi Side bilateral Equipment Used RawFlow Reps/Minutes 5SH x 10 Comments fatigues easily bilateral ER Standing Exercise Name B ER Side bilateral Resistance level 2 Equipment Used TB Reps/Minutes x10 Comments no c/o pain with ~20 degrees ER resisted rows Standing Exercise Name resisted rows Side bilateral Resistance level 2 Equipment Used TB Reps/Minutes focus on scap retraction GH extension Standing Exercise Name GH extension Side bilateral Resistance level 2 Equipment Used TB Reps/Minutes x12 Comments cued scap retraction ER Standing Exercise Name ER and IR Side left Resistance level 1 Equipment Used TB Reps/Minutes x12 Comments isometrics first; then active with towel roll for elbow to ribcage Manual Therapy Treatment Soft Tissue Mobilization UT, lev scap, cervical paraspinals Body Location infra and supraspinatus Mobilization Type Myofascial Release,Sustained Pressure Intensity/Depth Moderate Body Position Sidelying Comments with active rotation, contract /relax with improved pain free rotation Self-Care/Home Management Treatment Education Patient Education Posture Other Education Continued education on shoulder anatomy and mechanics with OH movement. PT-OP-T Assessment and Plan Start: 06/17/20 08:50 Freq: Status: Active Protocol: Document 07/08/20 10:34 AW (Rec: 07/08/20 12:21 AW [email or web address]) Physical Therapy Assessment Impairments Impairments Functional Activities,Pain, Posture,ROM,Soft Tissue Mobility,Strength Goals Four Impairment Lacks HEP Short Term Goal (STG) Pt will be compliant with HEP for support of therapy services provided in clinic. STG Duration 07/29/20 Mcc Goal (LTG) Pt to be independent with maintenance HEP. LTG Duration 09/14/20 Three Impairment posture Two Impairment Strength Short Term Goal (STG) Pt will demonstrate equal shoulder strength in all planes bilaterally. STG Duration 07/29/20 One Impairment Pain with lifting Hourly [employer] Goal (LTG) Pt will tolerate lifting 40# feed bags to overhead height without increase in pain to facilitate return to full work duties. LTG Duration 09/14/20 Assessment Summary Assessment Treatment focused on anatomy and biomechanics education, importance of postural awareness during functional activities. Counseled pt to modify activity as much as possible and to have others do more heavy lifting at work, if possible. Pt complains of pain in supraspinatus muscle belly and insertion on humerus . He fatigues easily with all exercises, including isometric . Will continue focus on steady strengthening and endurance for rotator cuff muscles and overall shoulder stability during lifting tasks . Physical Therapy Plan Frequency and Duration Frequency of Treatment 1-2 x/week Duration of Treatment 3 months Plan of Care Start Date 06/17/20 Plan of Care End Date 09/14/20 Therapeutic Interventions Therapeutic Interventions Home Exercise Program,Joint Mobilizations,Manual Therapy, Neuromuscular Re-education, Patient/Caregiver Education, Self-Care/Home Management,Soft Tissue Mobilization,Taping, Therapeutic Activities, Therapeutic Exercises Modalities Cold Pack/Ice Massage,Hot Packs Next Visit Focus/Plan Next Note Type Treatment Note Next Visit Plan STM and postural education/ ther ex
--- NOTE | 2020-07-15 11:17 | PT.OTN ---
Current Diagnoses Pain in left shoulder (07/15/20) Abnormal posture (07/15/20) Physical Therapy Treatment Note PT-OP-A Visit Information Start: 06/17/20 08:50 Freq: Status: Active Protocol: Document 07/15/20 10:34 AW (Rec: 07/15/20 11:14 AW [id number]) Out-Patient Physical Therapy Visit Information Visit Information Visit Type Treatment Note Visit Start Time 10:30 Visit Stop Time 11:15 Total Visit Minutes 45 Visit Number 4 Number of [employer]IA[employer] Visits 0 Evaluation Information Evaluation Date 06/17/20 PT-OP-B Current Condition Start: 06/17/20 08:50 Freq: Status: Active Protocol: Document 06/17/20 09:45 AW (Rec: 06/17/20 08:54 AW [email or web address]) Current Condition History of Current Condition Onset Date 45 days Current Complaints left shoulder pain History of Current Condition One and a half months ago, pt was lifting 40 pound feed bags and noticed achy left shoulder to got worse even with rest. Pt reports pain is worst with overhead movement, external rotation, and lifting . Prior Treatments and Tests x-ray 05/26/20 - no fracture or bony abnormality Treatment Goals Patient/Caregiver Goals Protect the shoulder and learn to lift without causing any more pain. 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 Pt reports good compliance with HEP. PT-OP-F Manual Assessment Start: 06/17/20 08:50 Freq: Status: Active Protocol: Document 06/17/20 09:45 AW (Rec: 06/17/20 17:17 AW [email or web address]) Manual Assessments Soft Tissue Assessment Soft Tissue Mobility Assessment Tight upper traps and pectoral mm bilaterally Joint Mobility Assessment Joint Mobility Assessment Slight restriction in left GH inferior and posterior glide PT-OP-H Neuro Start: 06/17/20 08:50 Freq: Status: Active Protocol: Document 06/17/20 09:45 AW (Rec: 06/17/20 17:17 AW [email or web address]) Sensation Evaluation Gross Sensation Gross Sensation WNL Deep Tendon Reflex & Clonus Assessment Deep Tendon Reflex Bilateral Bicep Deep Tendon Reflex 1+ Diminished Vital Signs Blood Pressure Sitting Blood Pressure (90/60-120/80 mmHg) 160/98 H Blood Pressure Source Manual Cuff,Right Upper Extremity PT-OP-J Posture/Palpation/Skin Start: 06/17/20 08:50 Freq: Status: Active Protocol: Document 06/17/20 09:45 AW (Rec: 06/17/20 17:17 AW [email or web address]) Posture Evaluation Position Sitting Evaluation View Lateral Head/C-Spine Posture Extended,Forward Head T-Spine Posture Increased Kyphosis Shoulder Posture (L) Rounded,(R) Rounded,(L) Forward,(R) Forward Scapula Posture (L) Protracted,(R) Protracted Arm Posture (L) Internally Rotated,(R) Internally Rotated PT-OP-K Range of Motion Start: 06/17/20 08:50 Freq: Status: Active Protocol: Document 06/17/20 09:45 AW (Rec: 06/17/20 17:17 AW [email or web address]) Cervical Spine Range of Motion Cervical Spine Active Testing Position Sitting Comments WNL Shoulder Goniometric Range of Motion Shoulder Left Active Testing Position Sitting Flexion 175 Extension 45 Abduction 170 External Rotation at 0 degrees Abduction 66 Internal Rotation Behind Back (text) T7 Comments flexion and abduction reproduce pain; IR feels tight Right Active Testing Position Sitting Flexion 175 Extension 46 Abduction 175 External Rotation at 0 degrees Abduction 63 Internal Rotation Behind Back (text) T6 Shoulder ROM Limitations Shoulder ROM Limitations Soft Tissue Tightness,Pain Elbow/Forearm Range of Motion Elbow/Forearm Left Active Elbow/Forearm ROM WFL Yes Comments WNL bilaterally PT-OP-L Special Tests Start: 06/17/20 08:50 Freq: Status: Active Protocol: Document 06/17/20 09:45 AW (Rec: 06/17/20 17:37 AW [email or web address]) Special Tests Cervical Spine Special Tests Spurling's Test Test Results negative bilaterally Shoulder Special Tests Mcnally Micheal Impingement Test Results slight positive left Drop Arm Rotator Cuff Test Results negative PT-OP-M Strength Start: 06/17/20 08:50 Freq: Status: Active Protocol: Document 06/17/20 09:45 AW (Rec: 06/17/20 17:37 AW [email or web address]) Cervical Spine Strength Cervical Spine Manual Muscle Testing Testing Position Sitting Comments WNL Scapula Strength Scapula Manual Muscle Testing Right Elevation (C4) 5 Normal Adduction 4- Good- Abduction 4+ Good+ Depression 4- Good- Left Elevation (C4) 5 Normal Adduction 4- Good- Abduction 4+ Good+ Depression 4- Good- Shoulder Strength Shoulder Manual Muscle Testing Right Flexion 5 Normal Extension 5 Normal Abduction (C5) 5 Normal External Rotation 5 Normal Internal Rotation 5 Normal Left Flexion 4+ Good+ Extension 5 Normal Abduction (C5) 4+ Good+ External Rotation 4+ Good+ Internal Rotation 5 Normal Elbow/Forearm Strength Elbow and Forearm Manual Muscle Testing Left Flexion (C6) 5 Normal Extension (C7) 5 Normal PT-OP-Q Treatments Start: 06/17/20 08:50 Freq: Status: Active Protocol: Document 07/15/20 10:34 AW (Rec: 07/15/20 11:14 AW [id number]) Cardio Equipment Upper Body Ergometer (UBE) Duration (Minutes) 6 RPM 60 Seat Position 13 Height 3 Therapeutic Exercises Supine Exercises supine posture press Supine Exercise Name supine posture press Side bilateral Reps/Minutes x10 Sitting Exercises isometric ER Sitting Exercise Name isometric ER Side bilateral Resistance level 1 Equipment Used TB Reps/Minutes 5SH x 10 Comments easy to fatigue Standing Exercises ER Standing Exercise Name ER and IR Side left Resistance level 1 Equipment Used endurance focus Reps/Minutes x12 Comments isometrics first; then active with towel roll for elbow to ribcage Manual Therapy Treatment Soft Tissue Mobilization UT, lev scap, cervical paraspinals Body Location infra and supraspinatus Mobilization Type Myofascial Release,Sustained Pressure Intensity/Depth Moderate Body Position Sidelying Comments with active rotation, contract /relax Self-Care/Home Management Treatment Education Patient Education Posture Other Education Continued education on shoulder anatomy and mechanics with OH movement. PT-OP-T Assessment and Plan Start: 06/17/20 08:50 Freq: Status: Active Protocol: Document 07/15/20 10:34 AW (Rec: 07/15/20 11:17 AW [id number]) Physical Therapy Assessment Impairments Impairments Functional Activities,Pain, Posture,ROM,Soft Tissue Mobility,Strength Goals Four Impairment Lacks HEP Short Term Goal (STG) Pt will be compliant with HEP for support of therapy services provided in clinic. STG Duration 07/29/20 Residential Goal (LTG) Pt to be independent with maintenance HEP. LTG Duration 09/14/20 Three Impairment posture Two Impairment Strength Short Term Goal (STG) Pt will demonstrate equal shoulder strength in all planes bilaterally. STG Duration 07/29/20 One Impairment Pain with lifting Residential Goal (LTG) Pt will tolerate lifting 40# feed bags to overhead height without increase in pain to facilitate return to full work duties. LTG Duration 09/14/20 Assessment Summary Assessment Pt fatigues easily with focused shoulder ther ex. Primarily isometrics with continued education on shoulder anatomy and biomechanics. Pt's symptoms slightly more irritable today. Pt reports feeling more aware of posture including arms more at sides now vs in front of the body. Physical Therapy Plan Frequency and Duration Frequency of Treatment 1-2 x/week Duration of Treatment 3 months Plan of Care Start Date 06/17/20 Plan of Care End Date 09/14/20 Therapeutic Interventions Therapeutic Interventions Home Exercise Program,Joint Mobilizations,Manual Therapy, Neuromuscular Re-education, Patient/Caregiver Education, Self-Care/Home Management,Soft Tissue Mobilization,Taping, Therapeutic Activities, Therapeutic Exercises Modalities Cold Pack/Ice Massage,Hot Packs Next Visit Focus/Plan Next Note Type Treatment Note Next Visit Plan STM and postural education/ ther ex
--- NOTE | 2020-07-22 11:17 | PT.OTN ---
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 Pt reports pain is worst with overhead movement, external rotation, and lifting . Prior Treatments and Tests x-ray 05/26/20 - no fracture or bony abnormality Treatment Goals Patient/Caregiver Goals Protect the shoulder and learn to lift without causing any more pain. 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 Current Functional Impairments (Reported) Functional Limitations- Work/School Pain with lifting feed bags in [employer] Personal Factors Other Personal Factors That May Effect - obesity Therapy/Recovery + generally positive attitude toward movement PT-OP-C Subjective Start: 06/17/20 08:50 Freq: Status: Active Protocol: Document 07/22/20 10:30 AW (Rec: 07/22/20 11:13 AW [id number]) OP-PT Subjective Patient Comments Patient Comments Less achiness overall, especially at rest. Still flares up after lifting activity. Noticing improved cervical ROM while driving. Patient Reported Progress Improving PT-OP-F Manual Assessment Start: 06/17/20 08:50 Freq: Status: Active Protocol: Document 06/17/20 09:45 AW (Rec: 06/17/20 17:17 AW [email or web address]) Manual Assessments Soft Tissue Assessment Soft Tissue Mobility Assessment Tight upper traps and pectoral mm bilaterally Joint Mobility Assessment Joint Mobility Assessment Slight restriction in left GH inferior and posterior glide PT-OP-H Neuro Start: 06/17/20 08:50 Freq: Status: Active Protocol: Document 06/17/20 09:45 AW (Rec: 06/17/20 17:17 AW [email or web address]) Sensation Evaluation Gross Sensation Gross Sensation WNL Deep Tendon Reflex & Clonus Assessment Deep Tendon Reflex Bilateral Bicep Deep Tendon Reflex 1+ Diminished Vital Signs Blood Pressure Sitting Blood Pressure (90/60-120/80 mmHg) 160/98 H Blood Pressure Source Manual Cuff,Right Upper Extremity PT-OP-J Posture/Palpation/Skin Start: 06/17/20 08:50 Freq: Status: Active Protocol: Document 06/17/20 09:45 AW (Rec: 06/17/20 17:17 AW [email or web address]) Posture Evaluation Position Sitting Evaluation View Lateral Head/C-Spine Posture Extended,Forward Head T-Spine Posture Increased Kyphosis Shoulder Posture (L) Rounded,(R) Rounded,(L) Forward,(R) Forward Scapula Posture (L) Protracted,(R) Protracted Arm Posture (L) Internally Rotated,(R) Internally Rotated PT-OP-K Range of Motion Start: 06/17/20 08:50 Freq: Status: Active Protocol: Document 06/17/20 09:45 AW (Rec: 06/17/20 17:17 AW [email or web address]) Cervical Spine Range of Motion Cervical Spine Active Testing Position Sitting Comments WNL Shoulder Goniometric Range of Motion Shoulder Left Active Testing Position Sitting Flexion 175 Extension 45 Abduction 170 External Rotation at 0 degrees Abduction 66 Internal Rotation Behind Back (text) T7 Comments flexion and abduction reproduce pain; IR feels tight Right Active Testing Position Sitting Flexion 175 Extension 46 Abduction 175 External Rotation at 0 degrees Abduction 63 Internal Rotation Behind Back (text) T6 Shoulder ROM Limitations Shoulder ROM Limitations Soft Tissue Tightness,Pain Elbow/Forearm Range of Motion Elbow/Forearm Left Active Elbow/Forearm ROM WFL Yes Comments WNL bilaterally PT-OP-L Special Tests Start: 06/17/20 08:50 Freq: Status: Active Protocol: Document 06/17/20 09:45 AW (Rec: 06/17/20 17:37 AW [email or web address]) Special Tests Cervical Spine Special Tests Spurling's Test Test Results negative bilaterally Shoulder Special Tests Mcnally Micheal Impingement Test Results slight positive left Drop Arm Rotator Cuff Test Results negative PT-OP-M Strength Start: 06/17/20 08:50 Freq: Status: Active Protocol: Document 06/17/20 09:45 AW (Rec: 06/17/20 17:37 AW [email or web address]) Cervical Spine Strength Cervical Spine Manual Muscle Testing Testing Position Sitting Comments WNL Scapula Strength Scapula Manual Muscle Testing Right Elevation (C4) 5 Normal Adduction 4- Good- Abduction 4+ Good+ Depression 4- Good- Left Elevation (C4) 5 Normal Adduction 4- Good- Abduction 4+ Good+ Depression 4- Good- Shoulder Strength Shoulder Manual Muscle Testing Right Flexion 5 Normal Extension 5 Normal Abduction (C5) 5 Normal External Rotation 5 Normal Internal Rotation 5 Normal Left Flexion 4+ Good+ Extension 5 Normal Abduction (C5) 4+ Good+ External Rotation 4+ Good+ Internal Rotation 5 Normal Elbow/Forearm Strength Elbow and Forearm Manual Muscle Testing Left Flexion (C6) 5 Normal Extension (C7) 5 Normal PT-OP-Q Treatments Start: 06/17/20 08:50 Freq: Status: Active Protocol: Document 07/22/20 10:30 AW (Rec: 07/22/20 11:13 AW [id number]) Cardio Equipment Upper Body Ergometer (UBE) Duration (Minutes) 6 RPM 75 Seat Position 13 Height 3 Therapeutic Exercises Supine Exercises rhythmic stabilization Supine Exercise Name rhythmic stabilization Side left Resistance manual Reps/Minutes 2 min Comments multiplanar scap protraction Supine Exercise Name scap protraction Side left Resistance manual Reps/Minutes x15 Sidelying Exercises open book Sidelying Exercise Name open book Side left Reps/Minutes x10 Sitting Exercises pulleys Sitting Exercise Name pulleys Side bilateral Reps/Minutes 3 min Comments flexion, abd, scaption Standing Exercises serratus punch Standing Exercise Name serratus punch Side left Equipment Used TB Reps/Minutes x12 scap protraction Standing Exercise Name scap protraction/retraction Side left Equipment Used small purple ball Reps/Minutes x10 Comments cued straight arm, minimize trunk rotation ball wall circles Standing Exercise Name ball wall circles Side bilateral Equipment Used small purple ball Reps/Minutes 15 sec x 4 each side Comments cued scap retraction bilateral ER Standing Exercise Name B ER Side bilateral Resistance level 2 Equipment Used TB Reps/Minutes x10 Comments no c/o pain with ~20 degrees ER resisted rows Standing Exercise Name resisted rows Side bilateral Resistance level 2 Equipment Used TB Reps/Minutes focus on scap retraction GH extension Standing Exercise Name GH extension Side bilateral Resistance level 2 Equipment Used TB Reps/Minutes x12 Comments cued scap retraction Self-Care/Home Management Treatment Education Patient Education Posture Other Education Frequent cues for scapular retraction/avoid shoulder elevation in rows/extensions. PT-OP-T Assessment and Plan Start: 06/17/20 08:50 Freq: Status: Active Protocol: Document 07/22/20 10:30 AW (Rec: 07/22/20 11:16 AW [id number]) Physical Therapy Assessment Impairments Impairments Functional Activities,Pain, Posture,ROM,Soft Tissue Mobility,Strength Goals Four Impairment Lacks HEP Short Term Goal (STG) Pt will be compliant with HEP for support of therapy services provided in clinic. STG Duration 07/29/20 Snuff Blender Goal (LTG) Pt to be independent with maintenance HEP. LTG Duration 09/14/20 Three Impairment posture Snuff Blender Goal (LTG) Pt will demonstrate improved awareness of postural implications for shoulder pain with uncued self-correction during functional activity such as lifting. LTG Duration 09/14/20 Two Impairment Strength Short Term Goal (STG) Pt will demonstrate equal shoulder strength in all planes bilaterally. STG Duration 07/29/20 One Impairment Pain with lifting Snuff Blender Goal (LTG) Pt will tolerate lifting 40# feed bags to overhead height without increase in pain to facilitate return to full work duties. LTG Duration 09/14/20 Assessment Summary Assessment Pt improving with endurance and overall strength, continues to need cues for scapular retraction during lifting and overhead activities. Good progress so far. Will continue to work toward goals. Physical Therapy Plan Frequency and Duration Frequency of Treatment 1-2 x/week Duration of Treatment 3 months Plan of Care Start Date 06/17/20 Plan of Care End Date 09/14/20 Therapeutic Interventions Therapeutic Interventions Home Exercise Program,Joint Mobilizations,Manual Therapy, Neuromuscular Re-education, Patient/Caregiver Education, Self-Care/Home Management,Soft Tissue Mobilization,Taping, Therapeutic Activities, Therapeutic Exercises Modalities Cold Pack/Ice Massage,Hot Packs Next Visit Focus/Plan Next Note Type Treatment Note Next Visit Plan STM and postural education/ ther ex; initiate lifting mechanics and activities
--- NOTE | 2020-07-29 12:15 | PT.OTN ---
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 Pt reports pain is worst with overhead movement, external rotation, and lifting . Prior Treatments and Tests x-ray 05/26/20 - no fracture or bony abnormality Treatment Goals Patient/Caregiver Goals Protect the shoulder and learn to lift without causing any more pain. 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 Had a lax week with exercises. PT-OP-F Manual Assessment Start: 06/17/20 08:50 Freq: Status: Active Protocol: Document 06/17/20 09:45 AW (Rec: 06/17/20 17:17 AW [email or web address]) Manual Assessments Soft Tissue Assessment Soft Tissue Mobility Assessment Tight upper traps and pectoral mm bilaterally Joint Mobility Assessment Joint Mobility Assessment Slight restriction in left GH inferior and posterior glide PT-OP-H Neuro Start: 06/17/20 08:50 Freq: Status: Active Protocol: Document 06/17/20 09:45 AW (Rec: 06/17/20 17:17 AW [email or web address]) Sensation Evaluation Gross Sensation Gross Sensation WNL Deep Tendon Reflex & Clonus Assessment Deep Tendon Reflex Bilateral Bicep Deep Tendon Reflex 1+ Diminished Vital Signs Blood Pressure Sitting Blood Pressure (90/60-120/80 mmHg) 160/98 H Blood Pressure Source Manual Cuff,Right Upper Extremity PT-OP-J Posture/Palpation/Skin Start: 06/17/20 08:50 Freq: Status: Active Protocol: Document 06/17/20 09:45 AW (Rec: 06/17/20 17:17 AW [email or web address]) Posture Evaluation Position Sitting Evaluation View Lateral Head/C-Spine Posture Extended,Forward Head T-Spine Posture Increased Kyphosis Shoulder Posture (L) Rounded,(R) Rounded,(L) Forward,(R) Forward Scapula Posture (L) Protracted,(R) Protracted Arm Posture (L) Internally Rotated,(R) Internally Rotated PT-OP-K Range of Motion Start: 06/17/20 08:50 Freq: Status: Active Protocol: Document 06/17/20 09:45 AW (Rec: 06/17/20 17:17 AW [email or web address]) Cervical Spine Range of Motion Cervical Spine Active Testing Position Sitting Comments WNL Shoulder Goniometric Range of Motion Shoulder Left Active Testing Position Sitting Flexion 175 Extension 45 Abduction 170 External Rotation at 0 degrees Abduction 66 Internal Rotation Behind Back (text) T7 Comments flexion and abduction reproduce pain; IR feels tight Right Active Testing Position Sitting Flexion 175 Extension 46 Abduction 175 External Rotation at 0 degrees Abduction 63 Internal Rotation Behind Back (text) T6 Shoulder ROM Limitations Shoulder ROM Limitations Soft Tissue Tightness,Pain Elbow/Forearm Range of Motion Elbow/Forearm Left Active Elbow/Forearm ROM WFL Yes Comments WNL bilaterally PT-OP-L Special Tests Start: 06/17/20 08:50 Freq: Status: Active Protocol: Document 06/17/20 09:45 AW (Rec: 06/17/20 17:37 AW [email or web address]) Special Tests Cervical Spine Special Tests Spurling's Test Test Results negative bilaterally Shoulder Special Tests Mcnally Micheal Impingement Test Results slight positive left Drop Arm Rotator Cuff Test Results negative PT-OP-M Strength Start: 06/17/20 08:50 Freq: Status: Active Protocol: Document 06/17/20 09:45 AW (Rec: 06/17/20 17:37 AW [email or web address]) Cervical Spine Strength Cervical Spine Manual Muscle Testing Testing Position Sitting Comments WNL Scapula Strength Scapula Manual Muscle Testing Right Elevation (C4) 5 Normal Adduction 4- Good- Abduction 4+ Good+ Depression 4- Good- Left Elevation (C4) 5 Normal Adduction 4- Good- Abduction 4+ Good+ Depression 4- Good- Shoulder Strength Shoulder Manual Muscle Testing Right Flexion 5 Normal Extension 5 Normal Abduction (C5) 5 Normal External Rotation 5 Normal Internal Rotation 5 Normal Left Flexion 4+ Good+ Extension 5 Normal Abduction (C5) 4+ Good+ External Rotation 4+ Good+ Internal Rotation 5 Normal Elbow/Forearm Strength Elbow and Forearm Manual Muscle Testing Left Flexion (C6) 5 Normal Extension (C7) 5 Normal PT-OP-Q Treatments Start: 06/17/20 08:50 Freq: Status: Active Protocol: Document 07/29/20 10:30 AW (Rec: 07/29/20 11:12 AW [id number]) Cardio Equipment Upper Body Ergometer (UBE) Duration (Minutes) 6 RPM 75 Seat Position 14 Height 3 Therapeutic Exercises Sidelying Exercises open book Sidelying Exercise Name open book Side left Reps/Minutes x10 Sitting Exercises pulleys Sitting Exercise Name pulleys Side bilateral Reps/Minutes 3 min Comments flexion, abd, scaption; more irritable today - cued pain free range Standing Exercises resisted rows Standing Exercise Name resisted rows Side bilateral Resistance level 2 Equipment Used TB Reps/Minutes focus on scap retraction ER Standing Exercise Name isometric ER Side left Resistance level 1 Equipment Used endurance focus Reps/Minutes 30 SH x 3 Comments iso only 2/2 high reactivity Manual Therapy Treatment Soft Tissue Mobilization UT, lev scap, cervical paraspinals Body Location infra and supraspinatus Mobilization Type Myofascial Release,Sustained Pressure Intensity/Depth Moderate Body Position Sidelying Comments with active rotation, MWM Joint Mobilizations scapula Joint scapulothoracic Direction inf, sup, rotation, medial Grade III Body Position Sidelying Reps/Duration 3 min Comments focus on adduction and rotation left GH Joint left GH Direction inferior, posterior Grade III Body Position Hooklying Reps/Duration 5 min Self-Care/Home Management Treatment Education Patient Education Home Exercise Program,Posture Other Education HEP: open book, resisted rows, B ER with band PT-OP-T Assessment and Plan Start: 06/17/20 08:50 Freq: Status: Active Protocol: Document 07/29/20 10:30 AW (Rec: 07/29/20 12:15 AW [email or web address]) Physical Therapy Assessment Impairments Impairments Functional Activities,Pain, Posture,ROM,Soft Tissue Mobility,Strength Goals Four Impairment Lacks HEP Short Term Goal (STG) Pt will be compliant with HEP for support of therapy services provided in clinic. 07/29/20 PROGRESSING STG Duration 07/29/20 [facility] Goal (LTG) Pt to be independent with maintenance HEP. LTG Duration 09/14/20 Three Impairment posture [facility] Goal (LTG) Pt will demonstrate improved awareness of postural implications for shoulder pain with uncued self-correction during functional activity such as lifting. LTG Duration 09/14/20 Two Impairment Strength Short Term Goal (STG) Pt will demonstrate equal shoulder strength in all planes bilaterally. STG Duration 07/29/20 One Impairment Pain with lifting Putty Tinter Maker Goal (LTG) Pt will tolerate lifting 40# feed bags to overhead height without increase in pain to facilitate return to full work duties. LTG Duration 09/14/20 Assessment Summary Assessment Pt presents with increase in symptom irritability today. Modified exercises and refined HEP to accommodate. Physical Therapy Plan Frequency and Duration Frequency of Treatment 1-2 x/week Duration of Treatment 3 months Plan of Care Start Date 06/17/20 Plan of Care End Date 09/14/20 Therapeutic Interventions Therapeutic Interventions Home Exercise Program,Joint Mobilizations,Manual Therapy, Neuromuscular Re-education, Patient/Caregiver Education, Self-Care/Home Management,Soft Tissue Mobilization,Taping, Therapeutic Activities, Therapeutic Exercises Modalities Cold Pack/Ice Massage,Hot Packs Next Visit Focus/Plan Next Note Type Treatment Note Next Visit Plan STM and postural education/ ther ex; initiate lifting mechanics and activities; MMT left shoulder for goal assessment
--- NOTE | 2020-08-05 11:01 | PT.OTN ---
Current Diagnoses Pain in left shoulder (08/05/20) Abnormal posture (08/05/20) Physical Therapy Treatment Note PT-OP-A Visit Information Start: 06/17/20 08:50 Freq: Status: Active Protocol: Document 08/05/20 10:24 MA (Rec: 08/05/20 11:01 MA [id number]) Out-Patient Physical Therapy Visit Information Visit Information Visit Type Treatment Note Visit Start Time 10:15 Visit Stop Time 10:55 Total Visit Minutes 40 Visit Number 7 Number of CERTIFIED NURSES' AIDE Visits 1 PT-OP-B Current Condition Start: 06/17/20 08:50 Freq: Status: Active Protocol: Document 06/17/20 09:45 AW (Rec: 06/17/20 08:54 AW [email or web address]) Current Condition History of Current Condition Onset Date 45 days Current Complaints left shoulder pain History of Current Condition One and a half months ago, pt was lifting 40 pound feed bags and noticed achy left shoulder to got worse even with rest. Pt reports pain is worst with overhead movement, external rotation, and lifting . Prior Treatments and Tests x-ray 05/26/20 - no fracture or bony abnormality Treatment Goals Patient/Caregiver Goals Protect the shoulder and learn to lift without causing any more pain. 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 He tried buying a one size fits all sling for work so he won' t use his arm, but the sling was too small and tight PT-OP-F Manual Assessment Start: 06/17/20 08:50 Freq: Status: Active Protocol: Document 06/17/20 09:45 AW (Rec: 06/17/20 17:17 AW [email or web address]) Manual Assessments Soft Tissue Assessment Soft Tissue Mobility Assessment Tight upper traps and pectoral mm bilaterally Joint Mobility Assessment Joint Mobility Assessment Slight restriction in left GH inferior and posterior glide PT-OP-H Neuro Start: 06/17/20 08:50 Freq: Status: Active Protocol: Document 06/17/20 09:45 AW (Rec: 06/17/20 17:17 AW [email or web address]) Sensation Evaluation Gross Sensation Gross Sensation WNL Deep Tendon Reflex & Clonus Assessment Deep Tendon Reflex Bilateral Bicep Deep Tendon Reflex 1+ Diminished Vital Signs Blood Pressure Sitting Blood Pressure (90/60-120/80 mmHg) 160/98 H Blood Pressure Source Manual Cuff,Right Upper Extremity PT-OP-J Posture/Palpation/Skin Start: 06/17/20 08:50 Freq: Status: Active Protocol: Document 06/17/20 09:45 AW (Rec: 06/17/20 17:17 AW [email or web address]) Posture Evaluation Position Sitting Evaluation View Lateral Head/C-Spine Posture Extended,Forward Head T-Spine Posture Increased Kyphosis Shoulder Posture (L) Rounded,(R) Rounded,(L) Forward,(R) Forward Scapula Posture (L) Protracted,(R) Protracted Arm Posture (L) Internally Rotated,(R) Internally Rotated PT-OP-K Range of Motion Start: 06/17/20 08:50 Freq: Status: Active Protocol: Document 06/17/20 09:45 AW (Rec: 06/17/20 17:17 AW [email or web address]) Cervical Spine Range of Motion Cervical Spine Active Testing Position Sitting Comments WNL Shoulder Goniometric Range of Motion Shoulder Left Active Testing Position Sitting Flexion 175 Extension 45 Abduction 170 External Rotation at 0 degrees Abduction 66 Internal Rotation Behind Back (text) T7 Comments flexion and abduction reproduce pain; IR feels tight Right Active Testing Position Sitting Flexion 175 Extension 46 Abduction 175 External Rotation at 0 degrees Abduction 63 Internal Rotation Behind Back (text) T6 Shoulder ROM Limitations Shoulder ROM Limitations Soft Tissue Tightness,Pain Elbow/Forearm Range of Motion Elbow/Forearm Left Active Elbow/Forearm ROM WFL Yes Comments WNL bilaterally PT-OP-L Special Tests Start: 06/17/20 08:50 Freq: Status: Active Protocol: Document 06/17/20 09:45 AW (Rec: 06/17/20 17:37 AW [email or web address]) Special Tests Cervical Spine Special Tests Spurling's Test Test Results negative bilaterally Shoulder Special Tests Mcnally Micheal Impingement Test Results slight positive left Drop Arm Rotator Cuff Test Results negative PT-OP-M Strength Start: 06/17/20 08:50 Freq: Status: Active Protocol: Document 06/17/20 09:45 AW (Rec: 06/17/20 17:37 AW [email or web address]) Cervical Spine Strength Cervical Spine Manual Muscle Testing Testing Position Sitting Comments WNL Scapula Strength Scapula Manual Muscle Testing Right Elevation (C4) 5 Normal Adduction 4- Good- Abduction 4+ Good+ Depression 4- Good- Left Elevation (C4) 5 Normal Adduction 4- Good- Abduction 4+ Good+ Depression 4- Good- Shoulder Strength Shoulder Manual Muscle Testing Right Flexion 5 Normal Extension 5 Normal Abduction (C5) 5 Normal External Rotation 5 Normal Internal Rotation 5 Normal Left Flexion 4+ Good+ Extension 5 Normal Abduction (C5) 4+ Good+ External Rotation 4+ Good+ Internal Rotation 5 Normal Elbow/Forearm Strength Elbow and Forearm Manual Muscle Testing Left Flexion (C6) 5 Normal Extension (C7) 5 Normal PT-OP-Q Treatments Start: 06/17/20 08:50 Freq: Status: Active Protocol: Document 08/05/20 10:24 MA (Rec: 08/05/20 11:01 MA [id number]) Cardio Equipment Upper Body Ergometer (UBE) Duration (Minutes) 6 RPM 75 Seat Position 14 Height 3 Therapeutic Exercises Sitting Exercises pulleys Sitting Exercise Name pulleys Side bilateral Reps/Minutes 3 min Comments flexion, abd, scaption; more irritable today - cued pain free range Standing Exercises resisted rows Standing Exercise Name resisted rows Side bilateral Resistance level 2 Equipment Used TB Reps/Minutes focus on scap retraction GH extension Standing Exercise Name GH extension Side bilateral Resistance level 2 Equipment Used TB Reps/Minutes x12 Comments cued scap retraction ER Standing Exercise Name ER with towel roll Side left Resistance lvl 2 tb Reps/Minutes x10 Other Exercises Tennis Ball Other Exercise Name Self_STM with tennis ball Reps/Minutes 2 min Comments added to HEP Manual Therapy Treatment Soft Tissue Mobilization UT, lev scap, cervical paraspinals Body Location infra and supraspinatus Mobilization Type Myofascial Release,Sustained Pressure Intensity/Depth Moderate Body Position Sidelying Comments with active rotation, MWM Self-Care/Home Management Treatment Education Patient Education Home Exercise Program Other Education Printed out HEP rows and ER with band. Added self-STM with tennis ball to posterior shd PT-OP-T Assessment and Plan Start: 06/17/20 08:50 Freq: Status: Active Protocol: Document 08/05/20 10:24 MA (Rec: 08/05/20 11:01 MA [id number]) Physical Therapy Assessment Goals Four Impairment Lacks HEP Short Term Goal (STG) Pt will be compliant with HEP for support of therapy services provided in clinic. 07/29/20 PROGRESSING STG Duration 07/29/20 Long-Term Goal (LTG) Pt to be independent with maintenance HEP. LTG Duration 09/14/20 Three Impairment posture Multi Operation Machine Operator Goal (LTG) Pt will demonstrate improved awareness of postural implications for shoulder pain with uncued self-correction during functional activity such as lifting. LTG Duration 09/14/20 Two Impairment Strength Short Term Goal (STG) Pt will demonstrate equal shoulder strength in all planes bilaterally. STG Duration 07/29/20 One Impairment Pain with lifting Multi Operation Machine Operator Goal (LTG) Pt will tolerate lifting 40# feed bags to overhead height without increase in pain to facilitate return to full work duties. LTG Duration 09/14/20 Assessment Summary Assessment Pt feels his ROM has improved on the pulleys and he is able to get his arm higher before feeling pain. Added scap retraction (rows) and ER to HEP as well as self-STM with tennis ball to posterior shd. Pt was very tender to palpation along posterior supraspinatus/infraspinatus and could only tolerate mild to moderate pressure today. Physical Therapy Plan Frequency and Duration Frequency of Treatment 1-2 x/week Duration of Treatment 3 months Plan of Care Start Date 06/17/20 Plan of Care End Date 09/14/20 Therapeutic Interventions Therapeutic Interventions Home Exercise Program,Joint Mobilizations,Manual Therapy, Neuromuscular Re-education, Patient/Caregiver Education, Self-Care/Home Management,Soft Tissue Mobilization,Taping, Therapeutic Activities, Therapeutic Exercises Modalities Cold Pack/Ice Massage,Hot Packs Next Visit Focus/Plan Next Note Type Treatment Note Next Visit Plan Review how self-STM with ball went at home. STM and postural education/ ther ex; initiate lifting mechanics and activities; MMT left shoulder for goal assessment
--- NOTE | 2020-08-12 11:16 | PT.OTN ---
Current Diagnoses Pain in left shoulder (08/12/20) Abnormal posture (08/12/20) Physical Therapy Treatment Note PT-OP-A Visit Information Start: 06/17/20 08:50 Freq: Status: Active Protocol: Document 08/12/20 10:33 AW (Rec: 08/12/20 11:11 AW [id number]) Out-Patient Physical Therapy Visit Information Visit Information Visit Type Treatment Note Visit Start Time 10:30 Visit Stop Time 11:15 Total Visit Minutes 45 Visit Number 8 Number of PERINATAL TECH Visits 0 Evaluation Information Evaluation Date 06/17/20 PT-OP-B Current Condition Start: 06/17/20 08:50 Freq: Status: Active Protocol: Document 06/17/20 09:45 AW (Rec: 06/17/20 08:54 AW [email or web address]) Current Condition History of Current Condition Onset Date 45 days Current Complaints left shoulder pain History of Current Condition One and a half months ago, pt was lifting 40 pound feed bags and noticed achy left shoulder to got worse even with rest. Pt reports pain is worst with overhead movement, external rotation, and lifting . Prior Treatments and Tests x-ray 05/26/20 - no fracture or bony abnormality Treatment Goals Patient/Caregiver Goals Protect the shoulder and learn to lift without causing any more pain. 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 patel stating lifting limitation 10 pounds for work. PT-OP-F Manual Assessment Start: 06/17/20 08:50 Freq: Status: Active Protocol: Document 06/17/20 09:45 AW (Rec: 06/17/20 17:17 AW [email or web address]) Manual Assessments Soft Tissue Assessment Soft Tissue Mobility Assessment Tight upper traps and pectoral mm bilaterally Joint Mobility Assessment Joint Mobility Assessment Slight restriction in left GH inferior and posterior glide PT-OP-H Neuro Start: 06/17/20 08:50 Freq: Status: Active Protocol: Document 06/17/20 09:45 AW (Rec: 06/17/20 17:17 AW [email or web address]) Sensation Evaluation Gross Sensation Gross Sensation WNL Deep Tendon Reflex & Clonus Assessment Deep Tendon Reflex Bilateral Bicep Deep Tendon Reflex 1+ Diminished Vital Signs Blood Pressure Sitting Blood Pressure (90/60-120/80 mmHg) 160/98 H Blood Pressure Source Manual Cuff,Right Upper Extremity PT-OP-J Posture/Palpation/Skin Start: 06/17/20 08:50 Freq: Status: Active Protocol: Document 06/17/20 09:45 AW (Rec: 06/17/20 17:17 AW [email or web address]) Posture Evaluation Position Sitting Evaluation View Lateral Head/C-Spine Posture Extended,Forward Head T-Spine Posture Increased Kyphosis Shoulder Posture (L) Rounded,(R) Rounded,(L) Forward,(R) Forward Scapula Posture (L) Protracted,(R) Protracted Arm Posture (L) Internally Rotated,(R) Internally Rotated PT-OP-K Range of Motion Start: 06/17/20 08:50 Freq: Status: Active Protocol: Document 06/17/20 09:45 AW (Rec: 06/17/20 17:17 AW [email or web address]) Cervical Spine Range of Motion Cervical Spine Active Testing Position Sitting Comments WNL Shoulder Goniometric Range of Motion Shoulder Left Active Testing Position Sitting Flexion 175 Extension 45 Abduction 170 External Rotation at 0 degrees Abduction 66 Internal Rotation Behind Back (text) T7 Comments flexion and abduction reproduce pain; IR feels tight Right Active Testing Position Sitting Flexion 175 Extension 46 Abduction 175 External Rotation at 0 degrees Abduction 63 Internal Rotation Behind Back (text) T6 Shoulder ROM Limitations Shoulder ROM Limitations Soft Tissue Tightness,Pain Elbow/Forearm Range of Motion Elbow/Forearm Left Active Elbow/Forearm ROM WFL Yes Comments WNL bilaterally PT-OP-L Special Tests Start: 06/17/20 08:50 Freq: Status: Active Protocol: Document 06/17/20 09:45 AW (Rec: 06/17/20 17:37 AW [email or web address]) Special Tests Cervical Spine Special Tests Spurling's Test Test Results negative bilaterally Shoulder Special Tests Mcnally Micheal Impingement Test Results slight positive left Drop Arm Rotator Cuff Test Results negative PT-OP-M Strength Start: 06/17/20 08:50 Freq: Status: Active Protocol: Document 06/17/20 09:45 AW (Rec: 06/17/20 17:37 AW [email or web address]) Cervical Spine Strength Cervical Spine Manual Muscle Testing Testing Position Sitting Comments WNL Scapula Strength Scapula Manual Muscle Testing Right Elevation (C4) 5 Normal Adduction 4- Good- Abduction 4+ Good+ Depression 4- Good- Left Elevation (C4) 5 Normal Adduction 4- Good- Abduction 4+ Good+ Depression 4- Good- Shoulder Strength Shoulder Manual Muscle Testing Right Flexion 5 Normal Extension 5 Normal Abduction (C5) 5 Normal External Rotation 5 Normal Internal Rotation 5 Normal Left Flexion 4+ Good+ Extension 5 Normal Abduction (C5) 4+ Good+ External Rotation 4+ Good+ Internal Rotation 5 Normal Elbow/Forearm Strength Elbow and Forearm Manual Muscle Testing Left Flexion (C6) 5 Normal Extension (C7) 5 Normal PT-OP-Q Treatments Start: 06/17/20 08:50 Freq: Status: Active Protocol: Document 08/12/20 10:33 AW (Rec: 08/12/20 11:11 AW [id number]) Cardio Equipment Upper Body Ergometer (UBE) Duration (Minutes) 6 RPM 75 Seat Position 14 Height 3 Therapeutic Exercises Supine Exercises rhythmic stabilization Supine Exercise Name rhythmic stabilization Side left Resistance manual, light resistance Reps/Minutes 2 min Comments multiplanar Sidelying Exercises open book Sidelying Exercise Name open book Side left Reps/Minutes x10 abduction Sidelying Exercise Name abduction Side left Resistance AROM Reps/Minutes 120 degrees abduction ER Sidelying Exercise Name ER Side left Resistance none Reps/Minutes x15 Sitting Exercises horizontal abduction Sitting Exercise Name horizontal abduction Side bilateral Resistance level 2 Equipment Used TB Reps/Minutes 3SH x 10 pulleys Sitting Exercise Name pulleys Side bilateral Reps/Minutes 3 min Comments flexion, abd, scaption; more irritable today - cued pain free range isometric ER Sitting Exercise Name isometric ER Side bilateral Resistance level 1 Equipment Used TB Reps/Minutes 5SH x 10 Comments easy to fatigue Standing Exercises isometric lat dorsi Standing Exercise Name isometric lat dorsi Side bilateral Equipment Used trekking poles Reps/Minutes 5SH x 10 Manual Therapy Treatment Soft Tissue Mobilization UT, lev scap, cervical paraspinals Body Location infra and supraspinatus Mobilization Type Myofascial Release,Sustained Pressure Intensity/Depth Moderate Body Position Sidelying Comments with active rotation, MWM Joint Mobilizations scapula Joint scapulothoracic Direction inf, sup, rotation, medial Grade III Body Position Sidelying Reps/Duration 3 min Comments focus on adduction and rotation Self-Care/Home Management Treatment Education Patient Education Home Exercise Program Other Education Added horizontal abduction PT-OP-T Assessment and Plan Start: 06/17/20 08:50 Freq: Status: Active Protocol: Document 08/12/20 10:33 AW (Rec: 08/12/20 11:16 AW [id number]) Physical Therapy Assessment Impairments Impairments Functional Activities,Pain, Posture,ROM,Soft Tissue Mobility,Strength Goals Four Impairment Lacks HEP Short Term Goal (STG) Pt will be compliant with HEP for support of therapy services provided in clinic. 07/29/20 PROGRESSING STG Duration 07/29/20 Fitness Center Attendant Goal (LTG) Pt to be independent with maintenance HEP. LTG Duration 09/14/20 Three Impairment posture [facility] Goal (LTG) Pt will demonstrate improved awareness of postural implications for shoulder pain with uncued self-correction during functional activity such as lifting. LTG Duration 09/14/20 Two Impairment Strength Short Term Goal (STG) Pt will demonstrate equal shoulder strength in all planes bilaterally. 08/12/20 - PROGRESSING: all planes equal except ER (1/2 grade less and painful on left ) STG Duration 07/29/20 One Impairment Pain with lifting Fitness Center Attendant Goal (LTG) Pt will tolerate lifting 40# feed bags to overhead height without increase in pain to facilitate return to full work duties. LTG Duration 09/14/20 Progress Towards Goals Progress Towards Goals Progressing Toward Goals Progress Comments Pt continues to demonstrate high level of fatigue in shoulder stabilizers and remains limited with lifting tolerance. Assessment Summary Assessment Pt has obtained a doctor's note to limit his lifting at work to no more than 10 pounds . He would like to continue therapy at the rate of 1 visit per week. PT to seek authorization for additional visits. One more visit currently authorized. Physical Therapy Plan Frequency and Duration Frequency of Treatment 1-2 x/week Duration of Treatment 3 months Plan of Care Start Date 06/17/20 Plan of Care End Date 09/14/20 Therapeutic Interventions Therapeutic Interventions Home Exercise Program,Joint Mobilizations,Manual Therapy, Neuromuscular Re-education, Patient/Caregiver Education, Self-Care/Home Management,Soft Tissue Mobilization,Taping, Therapeutic Activities, Therapeutic Exercises Modalities Cold Pack/Ice Massage,Hot Packs Next Visit Focus/Plan Next Note Type Treatment Note Next Visit Plan initiate lifting mechanics and activities
--- NOTE | 2020-08-19 11:23 | PT.OTN ---
Current Diagnoses Pain in left shoulder (08/19/20) Abnormal posture (08/19/20) Physical Therapy Treatment Note PT-OP-A Visit Information Start: 06/17/20 08:50 Freq: Status: Active Protocol: Document 08/19/20 11:15 AW (Rec: 08/19/20 11:15 AW [id number]) Out-Patient Physical Therapy Visit Information Visit Information Visit Type Treatment Note Visit Start Time 10:30 Evaluation Information Evaluation Date 06/17/20 PT-OP-B Current Condition Start: 06/17/20 08:50 Freq: Status: Active Protocol: Document 06/17/20 09:45 AW (Rec: 06/17/20 08:54 AW [email or web address]) Current Condition History of Current Condition Onset Date 45 days Current Complaints left shoulder pain History of Current Condition One and a half months ago, pt was lifting 40 pound feed bags and noticed achy left shoulder to got worse even with rest. Pt reports pain is worst with overhead movement, external rotation, and lifting . Prior Treatments and Tests x-ray 05/26/20 - no fracture or bony abnormality Treatment Goals Patient/Caregiver Goals Protect the shoulder and learn to lift without causing any more pain. 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 He is still working for [employer]. Looking into options for school. Has noticed reduced pain since not having to lift so much at work. PT-OP-F Manual Assessment Start: 06/17/20 08:50 Freq: Status: Active Protocol: Document 06/17/20 09:45 AW (Rec: 06/17/20 17:17 AW [email or web address]) Manual Assessments Soft Tissue Assessment Soft Tissue Mobility Assessment Tight upper traps and pectoral mm bilaterally Joint Mobility Assessment Joint Mobility Assessment Slight restriction in left GH inferior and posterior glide PT-OP-H Neuro Start: 06/17/20 08:50 Freq: Status: Active Protocol: Document 06/17/20 09:45 AW (Rec: 06/17/20 17:17 AW [email or web address]) Sensation Evaluation Gross Sensation Gross Sensation WNL Deep Tendon Reflex & Clonus Assessment Deep Tendon Reflex Bilateral Bicep Deep Tendon Reflex 1+ Diminished Vital Signs Blood Pressure Sitting Blood Pressure (90/60-120/80 mmHg) 160/98 H Blood Pressure Source Manual Cuff,Right Upper Extremity PT-OP-J Posture/Palpation/Skin Start: 06/17/20 08:50 Freq: Status: Active Protocol: Document 06/17/20 09:45 AW (Rec: 06/17/20 17:17 AW [email or web address]) Posture Evaluation Position Sitting Evaluation View Lateral Head/C-Spine Posture Extended,Forward Head T-Spine Posture Increased Kyphosis Shoulder Posture (L) Rounded,(R) Rounded,(L) Forward,(R) Forward Scapula Posture (L) Protracted,(R) Protracted Arm Posture (L) Internally Rotated,(R) Internally Rotated PT-OP-K Range of Motion Start: 06/17/20 08:50 Freq: Status: Active Protocol: Document 06/17/20 09:45 AW (Rec: 06/17/20 17:17 AW [email or web address]) Cervical Spine Range of Motion Cervical Spine Active Testing Position Sitting Comments WNL Shoulder Goniometric Range of Motion Shoulder Left Active Testing Position Sitting Flexion 175 Extension 45 Abduction 170 External Rotation at 0 degrees Abduction 66 Internal Rotation Behind Back (text) T7 Comments flexion and abduction reproduce pain; IR feels tight Right Active Testing Position Sitting Flexion 175 Extension 46 Abduction 175 External Rotation at 0 degrees Abduction 63 Internal Rotation Behind Back (text) T6 Shoulder ROM Limitations Shoulder ROM Limitations Soft Tissue Tightness,Pain Elbow/Forearm Range of Motion Elbow/Forearm Left Active Elbow/Forearm ROM WFL Yes Comments WNL bilaterally PT-OP-L Special Tests Start: 06/17/20 08:50 Freq: Status: Active Protocol: Document 06/17/20 09:45 AW (Rec: 06/17/20 17:37 AW [email or web address]) Special Tests Cervical Spine Special Tests Spurling's Test Test Results negative bilaterally Shoulder Special Tests Mcnally Micheal Impingement Test Results slight positive left Drop Arm Rotator Cuff Test Results negative PT-OP-M Strength Start: 06/17/20 08:50 Freq: Status: Active Protocol: Document 06/17/20 09:45 AW (Rec: 06/17/20 17:37 AW [email or web address]) Cervical Spine Strength Cervical Spine Manual Muscle Testing Testing Position Sitting Comments WNL Scapula Strength Scapula Manual Muscle Testing Right Elevation (C4) 5 Normal Adduction 4- Good- Abduction 4+ Good+ Depression 4- Good- Left Elevation (C4) 5 Normal Adduction 4- Good- Abduction 4+ Good+ Depression 4- Good- Shoulder Strength Shoulder Manual Muscle Testing Right Flexion 5 Normal Extension 5 Normal Abduction (C5) 5 Normal External Rotation 5 Normal Internal Rotation 5 Normal Left Flexion 4+ Good+ Extension 5 Normal Abduction (C5) 4+ Good+ External Rotation 4+ Good+ Internal Rotation 5 Normal Elbow/Forearm Strength Elbow and Forearm Manual Muscle Testing Left Flexion (C6) 5 Normal Extension (C7) 5 Normal PT-OP-Q Treatments Start: 06/17/20 08:50 Freq: Status: Active Protocol: Document 08/19/20 11:15 AW (Rec: 08/19/20 11:15 AW [id number]) Cardio Equipment Upper Body Ergometer (UBE) Duration (Minutes) 6 RPM 75 Seat Position 14 Height 3 Therapeutic Exercises Supine Exercises rhythmic stabilization Supine Exercise Name rhythmic stabilization Side left Resistance manual, mod resistance Reps/Minutes 2 min Comments multiplanar scap protraction Supine Exercise Name scap protraction Side left Resistance 4# db Reps/Minutes 3x10 Prone Exercises pendulum ABC Prone Exercise Name pendulum ABC Side left Reps/Minutes x 2 Sidelying Exercises open book Sidelying Exercise Name open book Side left Reps/Minutes x10 abduction Sidelying Exercise Name abduction Side left Resistance 1# Equipment Used x12 Reps/Minutes 120 degrees abduction ER Sidelying Exercise Name ER Side left Resistance 2# Reps/Minutes 2x12 Sitting Exercises scapular depression Sitting Exercise Name scapular depression Side bilateral Resistance 50# Equipment Used weight stack Reps/Minutes 2x10 Comments good uncued postural awareness horizontal abduction Sitting Exercise Name horizontal abduction Side bilateral Resistance level 2 Equipment Used TB Reps/Minutes x15 isometric ER Sitting Exercise Name AROM ER Side bilateral Resistance level 2 Equipment Used TB Reps/Minutes x15 Comments easy to fatigue Standing Exercises thoracic rotation Standing Exercise Name thoracic rotation Side bilateral Reps/Minutes 2x10 Comments arms crossed over chest; one set sitting; one standing GH extension Standing Exercise Name GH extension Side bilateral Resistance level 2 Equipment Used TB Reps/Minutes x12 Comments cued scap retraction reactive isometric walkouts ER IR Standing Exercise Name reactive isometric walkouts ER IR Side left Resistance level 1 Equipment Used TB Reps/Minutes 4 laps each dicrection Comments no irritation today PT-OP-T Assessment and Plan Start: 06/17/20 08:50 Freq: Status: Active Protocol: Document 08/19/20 11:15 AW (Rec: 08/19/20 11:23 AW [id number]) Physical Therapy Assessment Impairments Impairments Functional Activities,Pain, Posture,ROM,Soft Tissue Mobility,Strength Goals Four Impairment Lacks HEP Short Term Goal (STG) Pt will be compliant with HEP for support of therapy services provided in clinic. 07/29/20 PROGRESSING STG Duration 07/29/20 Hand Scudder Goal (LTG) Pt to be independent with maintenance HEP. LTG Duration 09/14/20 Three Impairment posture Hand Scudder Goal (LTG) Pt will demonstrate improved awareness of postural implications for shoulder pain with uncued self-correction during functional activity such as lifting. LTG Duration 09/14/20 Two Impairment Strength Short Term Goal (STG) Pt will demonstrate equal shoulder strength in all planes bilaterally. 08/12/20 - PROGRESSING: all planes equal except ER (1/2 grade less and painful on left ) STG Duration 07/29/20 One Impairment Pain with lifting Hand Scudder Goal (LTG) Pt will tolerate lifting 40# feed bags to overhead height without increase in pain to facilitate return to full work duties. LTG Duration 09/14/20 Assessment Summary Assessment Pt quit his job and will no longer need to lift >10 pounds for his [employer] gig. 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 He tolerated increased resistance in several exercises today without shoulder irritation. Will continue to focus on shoulder stabilization and endurance. Plan to initiate lifting mechanics and activities next session. Physical Therapy Plan Frequency and Duration Frequency of Treatment 1-2 x/week Duration of Treatment 3 months Plan of Care Start Date 06/17/20 Plan of Care End Date 09/14/20 Therapeutic Interventions Therapeutic Interventions Home Exercise Program,Joint Mobilizations,Manual Therapy, Neuromuscular Re-education, Patient/Caregiver Education, Self-Care/Home Management,Soft Tissue Mobilization,Taping, Therapeutic Activities, Therapeutic Exercises Modalities Cold Pack/Ice Massage,Hot Packs Next Visit Focus/Plan Next Note Type Treatment Note Next Visit Plan initiate lifting mechanics and activities
--- NOTE | 2020-12-15 13:48 | PT.OPDS ---
Current Diagnoses Pain in left shoulder (08/19/20) Abnormal posture (08/19/20) Visit Care Team Role Provider Type Alfred Richey DO Attending Provider Physician Primary Care Provider Referring Provider Specialty: [facility] Address: [address] [place] [address], [facility] Email: [email or web address] Visit Number Visit Number 8 Discharge Summary PT-OP-B Current Condition Start: 06/17/20 08:50 Freq: Status: Active Protocol: Document 06/17/20 09:45 AW (Rec: 06/17/20 08:54 AW [email or web address]) Current Condition History of Current Condition Onset Date 45 days Current Complaints left shoulder pain History of Current Condition One and a half months ago, pt was lifting 40 pound feed bags and noticed achy left shoulder to got worse even with rest. Pt reports pain is worst with overhead movement, external rotation, and lifting . Prior Treatments and Tests x-ray 05/26/20 - no fracture or bony abnormality Treatment Goals Patient/Caregiver Goals Protect the shoulder and learn to lift without causing any more pain. 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 Looking into options for school. Has noticed reduced pain since not having to lift so much at work. PT-OP-F Manual Assessment Start: 06/17/20 08:50 Freq: Status: Active Protocol: Document 06/17/20 09:45 AW (Rec: 06/17/20 17:17 AW [email or web address]) Manual Assessments Soft Tissue Assessment Soft Tissue Mobility Assessment Tight upper traps and pectoral mm bilaterally Joint Mobility Assessment Joint Mobility Assessment Slight restriction in left GH inferior and posterior glide PT-OP-H Neuro Start: 06/17/20 08:50 Freq: Status: Active Protocol: Document 06/17/20 09:45 AW (Rec: 06/17/20 17:17 AW [email or web address]) Sensation Evaluation Gross Sensation Gross Sensation WNL Deep Tendon Reflex & Clonus Assessment Deep Tendon Reflex Bilateral Bicep Deep Tendon Reflex 1+ Diminished Vital Signs Blood Pressure Sitting Blood Pressure (90/60-120/80 mmHg) 160/98 H Blood Pressure Source Manual Cuff,Right Upper Extremity PT-OP-J Posture/Palpation/Skin Start: 06/17/20 08:50 Freq: Status: Active Protocol: Document 06/17/20 09:45 AW (Rec: 06/17/20 17:17 AW [email or web address]) Posture Evaluation Position Sitting Evaluation View Lateral Head/C-Spine Posture Extended,Forward Head T-Spine Posture Increased Kyphosis Shoulder Posture (L) Rounded,(R) Rounded,(L) Forward,(R) Forward Scapula Posture (L) Protracted,(R) Protracted Arm Posture (L) Internally Rotated,(R) Internally Rotated PT-OP-K Range of Motion Start: 06/17/20 08:50 Freq: Status: Active Protocol: Document 06/17/20 09:45 AW (Rec: 06/17/20 17:17 AW [email or web address]) Cervical Spine Range of Motion Cervical Spine Active Testing Position Sitting Comments WNL Shoulder Goniometric Range of Motion Shoulder Left Active Testing Position Sitting Flexion 175 Extension 45 Abduction 170 External Rotation at 0 degrees Abduction 66 Internal Rotation Behind Back (text) T7 Comments flexion and abduction reproduce pain; IR feels tight Right Active Testing Position Sitting Flexion 175 Extension 46 Abduction 175 External Rotation at 0 degrees Abduction 63 Internal Rotation Behind Back (text) T6 Shoulder ROM Limitations Shoulder ROM Limitations Soft Tissue Tightness,Pain Elbow/Forearm Range of Motion Elbow/Forearm Left Active Elbow/Forearm ROM WFL Yes Comments WNL bilaterally PT-OP-L Special Tests Start: 06/17/20 08:50 Freq: Status: Active Protocol: Document 06/17/20 09:45 AW (Rec: 06/17/20 17:37 AW [email or web address]) Special Tests Cervical Spine Special Tests Spurling's Test Test Results negative bilaterally Shoulder Special Tests Mcnally Micheal Impingement Test Results slight positive left Drop Arm Rotator Cuff Test Results negative PT-OP-M Strength Start: 06/17/20 08:50 Freq: Status: Active Protocol: Document 06/17/20 09:45 AW (Rec: 06/17/20 17:37 AW [email or web address]) Cervical Spine Strength Cervical Spine Manual Muscle Testing Testing Position Sitting Comments WNL Scapula Strength Scapula Manual Muscle Testing Right Elevation (C4) 5 Normal Adduction 4- Good- Abduction 4+ Good+ Depression 4- Good- Left Elevation (C4) 5 Normal Adduction 4- Good- Abduction 4+ Good+ Depression 4- Good- Shoulder Strength Shoulder Manual Muscle Testing Right Flexion 5 Normal Extension 5 Normal Abduction (C5) 5 Normal External Rotation 5 Normal Internal Rotation 5 Normal Left Flexion 4+ Good+ Extension 5 Normal Abduction (C5) 4+ Good+ External Rotation 4+ Good+ Internal Rotation 5 Normal Elbow/Forearm Strength Elbow and Forearm Manual Muscle Testing Left Flexion (C6) 5 Normal Extension (C7) 5 Normal PT-OP-T Assessment and Plan Start: 06/17/20 08:50 Freq: Status: Active Protocol: Document 12/15/20 13:47 AW (Rec: 12/15/20 13:47 AW [email or web address]) Physical Therapy Plan Discharge Physical Therapy Discharge Reasons No Longer Attending PT Discharge Comments Pt no longer attending PT due to insurance limitations.
== END 2020-12-17 07:54 | disposition home or self-care (01) ==
LOC: PHYS 10:30
PROVIDERS: PCP Family Medicine; Referring Provider Family Medicine; Visit Provider Family Medicine
DX: M25.512 Pain in left shoulder (principal); R29.3 Abnormal posture
CPT/HCPCS: 97110; 97140; 97161

== ENCOUNTER → 2021-02-19 11:54 | Outpatient (CLI) | payer OTHER, MEDICAID, SELFPAY ==
[2021-02-21 11:32] LABS: COVID19 Sendout Not Detected (Not Detect)
== END ==
PROVIDERS: PCP Family Medicine; Visit Provider Nurse Practitioner
DX: Z20.822 Contact with and (suspected) exposure to COVID-19 (principal)
CPT/HCPCS: 87635

== ENCOUNTER → 2024-07-13 17:14 | Outpatient (CLI) | payer OTHER, SELFPAY ==
[2024-07-13 18:04] LABS: Influenza A - CEPHEID Flu A NEGATIVE (NEGATIVE); Influenza B - CEPHEID Flu B NEGATIVE (NEGATIVE); Respiratory Syncytial Virus Negative (Negative)
[2024-07-13 18:05] LABS: COVID-19 CEPHEID 4-PLEX PCR Negative (Negative)
== END ==
PROVIDERS: PCP Family Medicine; Visit Provider Nurse Practitioner Family
DX: R19.7 Diarrhea, unspecified (principal)
CPT/HCPCS: 0241U

== ENCOUNTER → 2024-09-19 09:49 | Outpatient (CLI) | payer OTHER, SELFPAY ==
[2024-09-19 11:01] LABS: Influenza A - CEPHEID Flu A NEGATIVE (NEGATIVE); Influenza B - CEPHEID Flu B NEGATIVE (NEGATIVE); Respiratory Syncytial Virus Negative (Negative)
[2024-09-19 11:03] LABS: COVID-19 CEPHEID 4-PLEX PCR Negative (Negative)
== END ==
PROVIDERS: PCP Family Medicine; Visit Provider Family Medicine
DX: R05.1 Acute cough (principal); J02.9 Acute pharyngitis, unspecified
CPT/HCPCS: 0241U; 87070

== ENCOUNTER 2024-10-04 10:21 | Day surgery (SDC) | payer OTHER, SELFPAY ==
[2024-09-27 13:50] VITALS: BMI 44.1
[2024-10-04] MEDS: ACETAMINOPHEN 325 MG TABLET 975 MG PO (10:49)
[2024-10-04] MEDS: LACTATED RINGERS 1,000 ML 42 ML IV (10:49)
[2024-10-04] MEDS: SCOPOLAMINE 1 PATCH TOP (10:49)
[2024-10-04 10:54] VITALS: BP 155/102; PULSE 75; RESP 17; TEMP 36.5; O2SAT 97; BMI 44.4
--- NOTE | 2024-10-04 12:39 | P.OP_ITS ---
Operative Date/Time/Diagnoses Date of procedure: 10/04/24 Time of procedure: 12:39 Pre-op diagnosis: Recurrent painful ingrown toenails right and left great toes Post-op diagnosis: same Procedure & Clinicians Procedure: Left and Right hallux total chemical matrixectomies. Same procedure as scheduled: Yes Indications: 34-year-old male with a painful recurring ingrown toenails. Conservative measures failed to alleviate pain and he wished to have surgical intervention at this time. His preference was to have this procedure done in an operative setting under sedation. We discussed the risks and potential complications as well as alternatives and expected outcomes. Consent was signed and there were no contraindications to the procedure at this time. Surgeon: Rhianna Jimenez Click Yes if Unassisted: Yes Anesthesia Type: General Operative Notes Findings: See procedure notes. Closure Type: not applicable Specimen(s): none sent Estimated Blood Loss (mL): 1 Procedure in detail: Patient was brought to the operating room and placed on the operative table in supine position. Following induction of anesthesia the recorded injectables were delivered to the patient's right and left great toes. The feet were prepped and draped in the usual aseptic manner. After check of anesthesia, a [place] drain was placed about the right hallux. The hallux nail was removed gently in total, including any spicules. The surrounding skin was protected with triple antibiotic ointment and a series of 4 applications of phenol at 30 sec each were placed in the area. Following each the area was curetted and after the last was rinsed with alcohol. The [place] tourniquet was removed, a prompt hyperemic response was seen to the toe. The area was cleaned and dressed with triple antibiotic ointment, Xeroform, 4x4s, and gently placed coban. The same procedure was performed to the left great toe. Complications: none Post-operative Condition: stable Disposition: PACU Plan for aftercare: Following a period of postoperative monitoring, the patient will be discharged to home on written and oral postoperative instructions including keeping the dressing dry and intact until tomorrow, then his soaking starts and he has been given detailed instructions on this. Weight bearing as tolerated, and elevate the foot when seated home. DVT prevention techniques have been reviewed. Post op visit generally around the 7-10 day post op lexus. S
--- NOTE | 2024-10-04 12:39 | PM.PREOP ---
Pre-operative Note Interval Note History & Physical reviewed/Exam performed by Physician: Yes Changes to H&P: No
[2024-10-04] MEDS: CEFAZOLIN VIAL 1 GM in SODIUM CHLORIDE 0.9% 100 ML IV (13:00)
[2024-10-04] MEDS: CEFAZOLIN 2 GM/100 ML PREMIX 100 ML IV (13:00)
--- NOTE | 2024-10-04 13:19 | SUR.OPER ---
Supine on padded OR bed, head on pillow, arms secured on padded arm boards at <90 degrees abduction, legs uncrossed, gel bumps to bilateral hips, safety belt at thigh, tape over blanket over lower legs.
[2024-10-04] MEDS: BACITRACIN OINT 0.9 GM PCKT 1 APPLIC TOP ×2 (13:30→13:31)
[2024-10-04] MEDS: BUPIVACAINE 0.5% (PF) 30 ML VIAL INJ (13:31)
[2024-10-04] MEDS: LIDOCAINE 2% INJ MDV 20ML 20 ML INJ (13:33)
[2024-10-04 13:46] VITALS: BP 167/102; PULSE 71; RESP 22; TEMP 36.2; O2SAT 98
[2024-10-04 13:51] VITALS: BP 159/108; PULSE 72; RESP 18; O2SAT 94
[2024-10-04] MEDS: BENZOCAINE/MENTHOL 1 LOZ PKT 1 EACH PO (13:54)
[2024-10-04 13:56] VITALS: BP 133/93; PULSE 75; RESP 20; O2SAT 95
[2024-10-04] MEDS: PHENOL LIQUID 100 SPRAYS/BOTTLE SPRAY MM (13:57)
[2024-10-04 14:01] VITALS: BP 134/86; PULSE 72; RESP 16; TEMP 35.9; O2SAT 95
--- NOTE | 2024-10-04 14:02 | SUR.OPER ---
70% ISOPROPYL ALCOHOL APPLIED TOPICALLY TO BILATERAL GREAT TOES
[2024-10-04 14:13] VITALS: BP 149/97; PULSE 71; RESP 18; TEMP 36; O2SAT 99
== END 2024-10-04 14:23 | disposition home or self-care (01) ==
PROVIDERS: PCP Family Medicine; Referring Provider Podiatrist; Visit Provider Podiatrist
PROC: 0HTRXZZ Resection of Toe Nail, External Approach (ICD-10-PCS; CPT 11750; principal; 2024-10-04 12:00)
DX: L60.0 Ingrowing nail (principal); L60.3 Nail dystrophy; M79.674 Pain in right toe(s); M79.675 Pain in left toe(s); E66.9 Obesity, unspecified; Z68.41 Body mass index [BMI] 40.0-44.9, adult; D21.21 Benign neoplasm of connective and other soft tissue of right lower limb, including hip; F32.A Depression, unspecified; F17.210 Nicotine dependence, cigarettes, uncomplicated; Z90.49 Acquired absence of other specified parts of digestive tract
CPT/HCPCS: 11750; J0690; J1100; J1885; J2250; J2405; J2704; J3010